=== PATIENT | female | born 1940 ===

== ENCOUNTER 2016-08-09 10:23 | Inpatient (IN) | payer MEDICARE, OTHER ==
[2016-08-09 11:05] LABS: ADD MANUAL DIFF? NO
[2016-08-09 11:13] LABS: BASO # 0.05 K/mm3 (0.0-2.0); BASO % 0.7 % (0.0-3.0); EOS # 0.1 (0.0-0.7); EOS % 0.7 % (1.5-5.0); GRAN # 4.51 (1.4-6.5); GRAN % 62.5 % (50.0-68.0); HEMATOCRIT 38.3 % (36.0-48.0); MEAN CELL VOLUME 89.7 fL (80.0-105.0); MEAN CORPUSCULAR HEMOGLOBIN 29.3 pg (25.0-35.0); MEAN CORPUSCULAR HGB CONC 32.6 g/dl (31.0-37.0); MEAN PLATELET VOLUME 10.1 fl (7.0-11.0); MONO # 0.7 (0.1-0.6); MONO % 9.1 % (1.0-6.0); PLATELET COUNT 208 10^3/uL (120.0-450.0); RED CELL DISTRIBUTION WIDTH 19.3 % (11.5-14.5); WHITE BLOOD COUNT 7.2 10^3/ul (4.5-11.0)
[2016-08-09 11:17] LABS: ALB/GLOB RATIO 1.2 (1.1-1.8); BILIRUBIN,TOTAL 1.1 mg/dL (0.2-1.3); CALCIUM 9.4 mg/dL (8.4-10.5); POTASSIUM 4.7 mmol/L (3.6-5.0); TOTAL PROTEIN 7.3 g/dL (5.8-8.3)
[2016-08-09 11:28] LABS: TROPONIN I 0.05 ng/mL
[2016-08-09 11:29] LABS: INR 1.12 (0.93-1.08); PARTIAL THROMBOPLASTIN TIME 27.6 Seconds (23.7-30.8)
--- NOTE | 2016-08-09 12:13 | ED PDOC ---
Arrival/HPI - General Chief Complaint: Shortness Of Breath Time Seen by Provider: 08/09/16 10:30 Historian: Patient - History of Present Illness Narrative History of Present Illness (Text): 08/09/16 12:08 Xenia Mancia is a 75 year old female, whose past medical history includes, A- fib, CAD with stents, hyperlipidemia, hypertension, Dementia, and diabetes, presents to the emergency department for evaluation of shortness of breath for past 2 weeks. Patient states she has not taken Digoxin for the past 2 weeks because she has not followed up with her PMD, . When EMS arrived, patient'sPULsewas in mid 170s which was brought down to 120s after 1 dose of Cardizem. Denies any fever, chills, chest pain, abdominal pain, nausea, vomiting , diarrhea, or any other complaints at this time. PMD:. 08/09/16 16:04 08/09/16 16:29 Time/Duration: < week (2 days ) Symptom Onset: Gradual Symptom Course: Unchanged Severity Level: Mild Activities at Onset: Light Context: Home Past Medical History - Provider Review Nursing Documentation Reviewed: Yes - Cardiac Hx Cardiac Disorders: Yes Hx Hypertension: Yes - Pulmonary Hx Chronic Obstructive Pulmonary Disease (COPD): Yes - Neurological Hx Neurological Disorder: Yes Hx Dementia: Yes - Endocrine/Metabolic Hx Endocrine Disorders: Yes Hx Diabetes Mellitus Type 2: Yes - Musculoskeletal/Rheumatological Hx Falls: No - Psychiatric Hx Substance Use: No - Surgical History Hx Cardiac Catheterization: Yes Hx Coronary Stent: Yes - Anesthesia Hx Anesthesia: Yes Hx Anesthesia Reactions: No Hx Malignant Hyperthermia: No Family/Social History - Physician Review Nursing Documentation Reviewed: Yes Family/Social History: No Known Family HX Smoking Status: Never Smoked Hx Alcohol Use: No Hx Substance Use: No Allergies/Home Meds Allergies/Adverse Reactions: Allergies No Known Allergies Allergy (Verified 06/23/16 14:06) Home Medications: Home Meds Medication Instructions Recorded Confirmed Atorvastatin Calcium 10 mg PO DIN 06/23/16 08/09/16 Donepezil HCl [Aricept Odt] 5 mg PO Q6 PRN 06/23/16 08/09/16 Glyburide/Metformin HCl 1 tab PO BID 06/23/16 08/09/16 [Glyburide-Metformin 5-500 mg] Lisinopril [Zestril] 20 mg PO DAILY 06/23/16 08/09/16 SITagliptin [Januvia] 100 mg PO DAILY 06/23/16 08/09/16 Meloxicam [Mobic] 15 mg PO DAILY 08/09/16 08/09/16 Review of Systems - Review of Systems Constitutional: Normal. absent: Fatigue, Fevers Respiratory: SOB. absent: Cough, Sputum Cardiovascular: Normal. absent: Chest Pain, Palpitations Gastrointestinal: Normal. absent: Abdominal Pain, Diarrhea, Nausea, Vomiting Genitourinary Female: Normal Psychiatric: Normal Physical Exam Vital Signs Reviewed: Yes Vital Signs Temp Pulse Resp BP Pulse Ox 08/09/16 16:07 135/66 08/09/16 15:45 115 H 16 115/75 96 08/09/16 14:01 108 H 17 110/72 94 L 08/09/16 11:55 127 H 24 108/53 L 98 08/09/16 11:45 101/62 08/09/16 11:40 120 H 18 101/62 94 L 08/09/16 11:24 109 H 18 99/71 L 97 08/09/16 11:12 20 98 08/09/16 11:09 127 H 23 87/56 L 98 08/09/16 11:07 137 H 20 108/53 L 96 08/09/16 11:06 149 H 26 H 118/49 L 96 08/09/16 11:04 171 H 18 102/67 94 L 08/09/16 11:02 174 H 123/78 08/09/16 10:35 182 H 26 H 126/85 99 08/09/16 10:33 96.8 F L 177 H 22 126/85 100 Temperature: Afebrile Blood Pressure: Normal Pulse: Tachycardic Respiratory Rate: Normal Appearance: Positive for: Well-Appearing, Non-Toxic, Comfortable Pain Distress: None Mental Status: Positive for: Alert and Oriented X 3 - Systems Exam Head: Present: Atraumatic, Normocephalic Pupils: Present: PERRL Conjunctiva: Present: Normal Respiratory/Chest: Present: Clear to Auscultation, Good Air Exchange. No: Respiratory Distress, Accessory Muscle Use Cardiovascular: Present: Normal S1, S2, Irregular Rhythm. No: Murmurs Abdomen: Present: Normal Bowel Sounds. No: Tenderness, Distention, Peritoneal Signs Upper Extremity: Present: Normal Inspection. No: Cyanosis, Edema Lower Extremity: Present: Normal Inspection. No: Edema Neurological: Present: GCS=15, CN II-XII Intact, Speech Normal Skin: Present: Warm, Dry, Normal Color. No: Rashes Psychiatric: Present: Alert, Oriented x 3, Normal Insight, Normal Concentration Medical Decision Making ED Course and Treatment: 08/09/16 12:14 Impression: A 75 year old female who presents to the emergency department for evaluation of shortness of breath for 2 days. Differential Diagnosis included but are not limited to: rapid A-fib RULE OUT [place] Plan: -- EKG -- Labs, cardiac enzymes -- CXR -- Chest X-ray -- Cardizem -- Reassess and disposition Progress Notes: Case was discussed with patient's granddaughter who is aware and verbalizes agreement with the plan to admit patient to telemetry for A-fib. EKG interpreted by me: A-fib @ 177 bpm. 08/09/16 13:32 heart rate of 113 bpm with a systolic pressure of 133. Will administer another dose of Cardizem and admit to telemetry. trop negative. cxr no infiltrate. pt states feeling better. probnp elevated, given lasix. Hayes hospitalist covering Dr sepulveda 08/09/16 13:39 Case discussed with hospitalist who accepts patient under his service for rapid A-fib. 08/09/16 16:30 08/09/16 16:35 - Lab Interpretations Lab Results: 08/09/16 11:00 08/09/16 11:00 Lab Results 08/09/16 11:00: WBC 7.2 D, RBC 4.27, Hgb 12.5, Hct 38.3, MCV 89.7, MCH 29.3, MCHC 32.6, RDW 19.3 H, Plt Count 208, MPV 10.1, Gran % 62.5, Lymph % (Auto) 27.0 , [place] % (Auto) 9.1 H, Eos % (Auto) 0.7 L, Baso % (Auto) 0.7, Gran # 4.51, Lymph # 2.0, [place] # 0.7 H, Eos # 0.1, Baso # 0.05, PT 12.1 H, INR 1.12 H, APTT 27.6, Sodium 140, Potassium 4.7, Chloride 103, Carbon Dioxide 22, Anion Gap 20, BUN 24 H, Creatinine 1.2, Est GFR ( Amer) 53, Est GFR (Non-Af Amer) 44, Random Glucose 147 H, Calcium 9.4, Total Bilirubin 1.1, AST 48 H, ALT 30, Alkaline Phosphatase 126, Lactate Dehydrogenase 637, Total Creatine Kinase 70, Troponin I 0.05 D, NT-Pro-B Natriuret Pep 3040 H, Total Protein 7.3, Albumin 3.9, Globulin 3.3, Albumin/Globulin Ratio 1.2 I have reviewed the lab results: Yes - RAD Interpretation Radiology Orders: 08/09/16 10:59 CHEST PORTABLE [RAD] Stat [employer] Supervisor: ED Physician - EKG Interpretation Interpreted by ED Physician: Yes Type: 12 lead EKG - Medication Orders Current Medication Orders: Aspirin (Ecotrin) 81 mg PO 0800 SEA Atorvastatin Calcium (Lipitor) 10 mg PO DIN SEA Digoxin (Lanoxin) 0.25 mg PO 1400 SEA Diltiazem HCl (Cardizem) 60 mg PO QID SEA Donepezil HCl (Aricept) 5 mg PO HS SEA Enoxaparin Sodium (Lovenox) 60 mg SC Q12H SEA PRN Reason: Protocol Furosemide (Lasix) 40 mg IVP DAILY SEA Glyburide (Micronase) 5 mg PO BID SEA diltiaZEM IVPB 100mg in NS (Cardizem 100mg In Ns) 100 mls @ 5 mls/hr IV .Q20H PRN; Protocol; 5 MG/HR PRN Reason: TITRATE PER MD ORDER Last Admin: 08/09/16 14:44 Dose: 5 MLS/HR Titration Intervention Document 08/09/16 14:44 [facility] (Rec: 08/09/16 14:46 [id number] Titration Intake Container Volume 100 Titration Dosing Titration Dose 5 IV Rate 5 Intake/Decrease Start eMAR Start Stop Document 08/09/16 14:44 [facility] (Rec: 08/09/16 14:46 [id number] Intravenous Solution Start Date 08/09/16 Start Time 14:46 Insulin Human Regular (Humulin R Med) 0 units SC ACHS SEA Pantoprazole Sodium (Protonix Ec Tab) 40 mg PO 0630 SEA Sitagliptin Phosphate (Januvia) 50 mg PO DAILY SEA Discontinued Medications Digoxin (Lanoxin) 0.25 mg IVP STAT STA Stop: 08/09/16 14:11 Last Admin: 08/09/16 14:17 Dose: 0.25 MG MAR Apical Pulse Rate Document 08/09/16 14:17 [facility] (Rec: 08/09/16 14:18 [place] [id number]) Apical Pulse Rate Apical Pulse Rate (60-90 beats/min) 137 IVP Administration Document 08/09/16 14:17 [facility] (Rec: 08/09/16 14:18 [place] [id number]) Charges for Administration # of IVP Administrations 1 Digoxin (Lanoxin) Confirm Administered Dose 0.5 mg .ROUTE .STK-MED ONE Stop: 08/09/16 14:17 Last Admin: 08/09/16 14:17 Dose: 0.5 MG Comments: duplicate [facility] Apical Pulse Rate Document 08/09/16 14:17 [facility] (Rec: 08/09/16 14:46 [place] [id number]) Apical Pulse Rate Apical Pulse Rate (60-90 beats/min) 137 Diltiazem HCl (Cardizem) Confirm Administered Dose 25 mg .ROUTE .STK-MED ONE Stop: 08/09/16 11:01 Last Admin: 08/09/16 11:02 Dose: 15 MG Comments: verbal order given by dr Wendy SHETTY Pulse and Blood Pressure Document 08/09/16 11:02 [facility] (Rec: 08/09/16 11:29 [place] [id number]) Pulse Pulse Rate (60-90) 174 Blood Pressure Blood Pressure (100/60-150/90) 123/78 Diltiazem HCl (Cardizem) 30 mg PO STAT STA Stop: 08/09/16 11:11 Last Admin: 08/09/16 11:45 Dose: 30 MG MAR Blood Pressure Document 08/09/16 11:45 [facility] (Rec: 08/09/16 11:46 [facility] [id number]) Blood Pressure Blood Pressure (100/60-150/90) 101/62 Enoxaparin Sodium (Lovenox) 60 mg SC STAT STA PRN Reason: Protocol Stop: 08/09/16 13:42 Last Admin: 08/09/16 14:18 Dose: 60 MG Subcutaneous Administrations Document 08/09/16 14:18 [facility] (Rec: 08/09/16 14:18 [place] [id number]) Injection Site MAR Injection Site Right Abdomen Charges for Administration # of Subcutaneous Administrations 1 Furosemide (Lasix) 40 mg IVP ONCE ONE Stop: 08/09/16 16:01 Last Admin: 08/09/16 16:07 Dose: 40 MG MAR Blood Pressure Document 08/09/16 16:07 [facility] (Rec: 08/09/16 16:07 [id number] Blood Pressure Blood Pressure (100/60-150/90) 135/66 IVP Administration Document 08/09/16 16:07 [facility] (Rec: 08/09/16 16:07 [id number]) Charges for Administration # of IVP Administrations 1 Non-Formulary Medication (Donepezil Hcl [Aricept Odt]) 5 mg PO Q6 PRN PRN Reason: Anxiety - Scribe Statement The provider has reviewed the documentation as recorded by the Polina Hernandez Provider Attestation: All medical record entries made by the Polina were at my direction and personally dictated by me. I have reviewed the chart and agree that the record accurately reflects my personal performance of the history, physical exam, medical decision making, and the department course for this patient. I have also personally directed, reviewed, and agree with the discharge instructions and disposition. Disposition/Present on Arrival - Present on Arrival Any Indicators Present on Arrival: No History of DVT/PE: No History of Uncontrolled Diabetes: Yes Urinary Catheter: No History of Decub. Ulcer: No History Surgical Site Infection Following: None - Disposition Have Diagnosis and Disposition been Completed?: Yes Diagnosis: Rapid atrial fibrillation, CHF (congestive heart failure) Disposition: HOSPITALIZED Disposition Time: 13:35 Patient Plan: Admission Condition: STABLE
--- NOTE | 2016-08-09 12:21 | RAD ---
HISTORY: sob COMPARISON: 06/23/2016 FINDINGS: LUNGS: No infiltrate. PLEURA: No significant pleural effusion identified, no pneumothorax apparent. CARDIOVASCULAR: Normal heart size. No congestive change. OSSEOUS STRUCTURES: No significant abnormalities. VISUALIZED UPPER ABDOMEN: Normal. OTHER FINDINGS: None. IMPRESSION: No active disease.
[2016-08-09] MEDS ORDERED: Enoxaparin 60 mg Syringe SC STA (13:41)
[2016-08-09] MEDS ORDERED: Digoxin 500 mcg/2ml (0.5 mg/2ml) Inj IVP STA (14:10)
[2016-08-09] MEDS ORDERED: DONEPEZIL HCL 5 MG PO PRN (14:12)
[2016-08-09] MEDS ORDERED: Digoxin 500 mcg/2ml (0.5 mg/2ml) Inj ONE (14:16)
[2016-08-09] MEDS ORDERED: diltiaZEM IVPB 100mg in NS 100 ML IV PRN ×2 (14:23→17:30)
--- NOTE | 2016-08-09 14:40 | CP.PCM.HP ---
Addendum entered and electronically signed by Shawnee Neumann DO 08/09/16 16:18: COPD mentions in below note entered in error. Original Note: <Shawnee Neumann - Last Filed: 08/09/16 15:10> History of Present Illness - History of Present Illness History of Present Illness: PGY-1 note HPI: 75 yo F w/ PMHx of HTN, DM, CAD with cardiac stents, A. fib, severe , COPD, dementia, presents to the ED with progressively worsening SOB. Pt walks with a cane. Denies chest pain, N/V, fever, abdominal pain, hematuria, pyuria, and changes in stool. PMD: Dr. Chaves Manager Safe: Dr. Richard Byers PMhx: see above Psxhx: denies Allergies: claims NKDA Social: denies ETOH, ever smoking, and illicit drugs. Lives alone. Medications: Lisinopril 20mg PO QD, Atorvastin 10 mg HS Present on Admission - Present on Admission Any Indicators Present on Admission: No Review of Systems - Review of Systems All systems: reviewed and no additional remarkable complaints except - Constitutional Constitutional: absent: Chills, Fever - Cardiovascular Cardiovascular: Dyspnea. absent: Chest Pain - Respiratory Respiratory: Dyspnea. absent: Cough - Gastrointestinal Gastrointestinal: absent: Abdominal Pain, Nausea Past Patient History - Past Social History Smoking Status: Never Smoked - CARDIAC Hx Cardiac Disorders: Yes Hx Hypertension: Yes - PULMONARY Hx Chronic Obstructive Pulmonary Disease (COPD): Yes - NEUROLOGICAL Hx Neurological Disorder: Yes Hx Dementia: Yes - ENDOCRINE/METABOLIC Hx Endocrine Disorders: Yes Hx Diabetes Mellitus Type 2: Yes - MUSCULOSKELETAL/RHEUMATOLOGICAL Hx Falls: No - PSYCHIATRIC Hx Substance Use: No - SURGICAL HISTORY Hx Cardiac Catheterization: Yes Hx Coronary Stent: Yes - ANESTHESIA Hx Anesthesia: Yes Hx Anesthesia Reactions: No Hx Malignant Hyperthermia: No Meds Allergies/Adverse Reactions: Allergies Allergy/AdvReac Type Severity Reaction Status Date / Time No Known Allergies Allergy Verified 08/09/16 17:17 Physical Exam - Constitutional Appears: Non-toxic, No Acute Distress - Head Exam Head Exam: ATRAUMATIC, NORMOCEPHALIC - Eye Exam Eye Exam: EOMI, Normal appearance - Respiratory Exam Respiratory Exam: Clear to Auscultation Bilateral, NORMAL BREATHING PATTERN - Cardiovascular Exam Cardiovascular Exam: Irregular Rhythm, +S1, +S2 - GI/Abdominal Exam GI & Abdominal Exam: Soft. absent: Tenderness - Exam External exam: absent: Ecchymosis, Erythema - Extremities Exam Extremities exam: Positive for: pedal edema, pedal pulses present - Back Exam Back exam: absent: CVA tenderness (L), CVA tenderness (R) - Neurological Exam Neurological exam: Alert, Oriented x3 - Skin Skin Exam: Intact, Normal Color Results - Vital Signs Recent Vital Signs: Last Vital Signs Temp 96.8 F L 08/09/16 10:33 Pulse 108 H 08/09/16 14:01 Resp 17 08/09/16 14:01 BP 110/72 08/09/16 14:01 Pulse Ox 94 L 08/09/16 14:01 - Labs Result Diagrams: 08/09/16 11:00 08/09/16 11:00 Assessment & Plan - Assessment and Plan (Free Text) Plan: 75 yo F w/ PMHx of HTN, DM, CAD with cardiac stents, A. fib, severe , COPD, dementia, w/ 2 week hx of worsening SOB. In ED, patient has sustained R. atrial fibrillation with HR in 170's that is treated with IV and PO cardizem. BNP is 3040. Pt is admitted to inpatient telemetry for R. a. fibrillation and CHF: R. A. fibrillation: EKG shows A. fibrillation at 177 bpm Cardizem 60 mg PO QID Cardizem drip ASA 81 Dr. Howe is requested for cardiology consult, help appreciated. CHF: Daily I's and O's ordered Recent ECHO on 06/24/2016 showed normal EF, mild to moderate LVH, moderately to severely calcified aortic valve, moderate pulmonary hypertension CAD: Lipitor 10 po HS DM: ISS Januvia 50 mg PO QD Glyburide 5mg PO BID Dementia: Aricept 5 mg PO HS ordered PPx measures: Lovenox 60mg SC given in ED today protonix <GustavoasaaveAjantha - Last Filed: 08/10/16 12:02> Results - Vital Signs Recent Vital Signs: Last Vital Signs Temp 97.8 F 08/10/16 06:00 Pulse 92 H 08/10/16 06:00 Resp 18 08/10/16 06:00 BP 142/80 08/10/16 09:31 Pulse Ox 94 L 08/10/16 06:00 - Labs Result Diagrams: 08/10/16 06:30 08/10/16 02:45 Labs: Laboratory Results - last 24 hr 08/09/16 08/09/16 08/09/16 16:36 19:11 21:35 WBC RBC Hgb Hct MCV MCH MCHC RDW Plt Count MPV Gran % Lymph % (Auto) [place] % (Auto) Eos % (Auto) Baso % (Auto) Gran # Lymph # [place] # Eos # Baso # Sodium Potassium Chloride Carbon Dioxide Anion Gap BUN Creatinine Est GFR ( Amer) Est GFR (Non-Af Amer) POC Glucose (mg/dL) 84 94 Random Glucose Calcium Total Bilirubin AST ALT Alkaline Phosphatase Lactate Dehydrogenase 810 H Total Creatine Kinase 70 Troponin I 0.08 D Total Protein Albumin Globulin Albumin/Globulin Ratio 08/10/16 08/10/16 08/10/16 02:45 06:30 07:33 WBC 7.0 RBC 4.50 Hgb 13.2 Hct 40.4 MCV 89.8 MCH 29.3 MCHC 32.7 RDW 19.1 H Plt Count 206 MPV 9.9 Gran % 66.1 Lymph % (Auto) 22.8 [place] % (Auto) 10.1 H Eos % (Auto) 0.6 L Baso % (Auto) 0.4 Gran # 4.63 Lymph # 1.6 [place] # 0.7 H Eos # 0.0 Baso # 0.03 Sodium 138 Potassium 4.2 Chloride 105 Carbon Dioxide 22 Anion Gap 15 BUN 23 H Creatinine 1.1 Est GFR ( Amer) 58 Est GFR (Non-Af Amer) 48 POC Glucose (mg/dL) 68 Random Glucose 67 L Calcium 9.1 Total Bilirubin 1.0 AST 43 H ALT 24 Alkaline Phosphatase 110 Lactate Dehydrogenase 581 Total Creatine Kinase 49 Troponin I 0.08 0.07 Total Protein 6.6 Albumin 3.4 Globulin 3.2 Albumin/Globulin Ratio 1.1 Assessment & Plan - Assessment and Plan (Free Text) Plan: attending note; Patient seen and examined with resident in ER. This is a 75-year-old Emirati-speaking female admitted with rapid A. fib. Currently denies any chest pain. Complaining of mild lower extremity swelling. Started on IV cardizem drip after the Cardizem and the dose of IV digoxin. started on subcutaneous Lovenox. Patient is noncompliance with medication. patient with aortic stenosis. follows up with cardiology Dr.Rashawn byers. Cardiology evaluation with Dr. Howe requested. Will follow patient closely in telemetry. Upon discharge patient will follow up with PMD Dr. chaves.
--- NOTE | 2016-08-09 14:42 | CARD ---
APPROVED REPORT EKG Measurement Heart [id number] <Conclusion> Atrial fibrillation with rapid ventricular response Anterior infarct, age undetermined ST & T wave abnormality, consider lateral ischemia or digitalis effect Abnormal ECG
[2016-08-09 14:47] VITALS: BMI 25.3
[2016-08-09] MEDS ORDERED: Albuterol-Ipratrop 3 mg / 0.5 (3 ml) UD IH PRN (16:03)
[2016-08-09] MEDS: Insulin Reg-MEDIUM-Coverage SC SCH ×2 (17:15→22:40)
[2016-08-09] MEDS ORDERED: Non Formulary Medication (Glyburide/Metformin Hcl [Glyburide-Metformin 5-500 Mg] 1 TAB) PO SCH (18:00)
[2016-08-09] MEDS ORDERED: Digoxin 500 mcg/2ml (0.5 mg/2ml) Inj IVP ONE (19:00)
--- NOTE | 2016-08-09 19:13 | CON ---
DATE: 08/09/2016 SERVICE: Cardiology. REASON FOR CONSULTATION: Aortic stenosis, coronary artery disease, status post PTCA, admitted with shortness of breath, AFib with rapid ventricular rate ( chronic atrial fibrillation). BRIEF CLINICAL HISTORY: This is a 75-year-old Urdu speaking female with a past medical history significant for coronary artery disease, status post PTCA of LAD, 3 years ago. Repeat catheterization 04/18/2015 shows proximal stent patent in LAD. Medical treatment recommended. RCA nondominant 90% stenosis, preserved left ventricular function, history of chronic atrial fibrillation. Discharged recently from [facility] on Eliquis. Prior, patient was discharged to [place], not on anticoagulation because of the gastrointestinal bleed, but patient was on Brilinta post PTCA. At one point, patient's hemoglobin was 6 and she was not on anticoagulation there, but last time the patient was here and was discharged on Eliquis, who recently discharged from when the patient was admitted with sepsis. PAST MEDICAL HISTORY: Significant for chronic atrial fibrillation, hypertension , dementia, diabetes, history of cardiac catheterization, and coronary artery disease. As mentioned, patient had a stent placement done by Dr. Kwan Byers 3-4 years ago, repeat cardiac catheterization on 04/18/2015, shows a patent stent in the proximal RCA, nondominant, 90% stenosis, history of GI bleed , history of chronic atrial fibrillation. The patient had echocardiography done that shows LV size normal, LV function normal, left renal function is within normal limits, calculated ejection fraction 74%, severe aortic stenosis, valve area 0.6-0.7 cm2, severe valvular aortic stenosisand calcified aortic valve, aortic regurgitation, moderate mitral regurgitation, moderate pulmonary hypertension, moderate tricuspid regurgitation, right ventricular systolic pressure 55. Echo dated 06/24/2016. Previous cardiac workup as follows: Cardiac catheterization on 04/18/2015, repeat that shows patent stent in the proximal LAD, mid LAD has 40% stenosis, circumflex essentially free of significant disease, RCA nondominant 90% stenosis , preserved left ventricular function. As mentioned, last echo dated 06/24/2016 showed concentric LVH, severe valvular aortic stenosis, moderate valvular regurgitation, moderate mitral regurgitation, moderate pulmonary hypertension, right ventricular systolic pressure of 55, calculated valve area 0.7 cm2. CURRENT MEDICATIONS: The patient at home was taking Januvia, Mobic, lisinopril , glyburide, Aricept, atorvastatin. She says that she stopped taking digoxin because the patient was not getting from Dr. Marcelo Burris. REVIEW OF SYSTEMS: As per HPI. ALLERGIES: No known drug allergies. PHYSICAL EXAMINATION: VITAL SIGNS: Temperature afebrile, heart rate 108, blood pressure 110/72. HEENT: PERRLA. Extraocular muscles intact. NECK: Supple. No carotid bruits. No thyromegaly. CHEST: Clear to auscultation. HEART: S1, S2 regular. ABDOMEN: Soft. EXTREMITIES: Clubbing and cyanosis negative. LABORATORY DATA: Blood workup as follows: WBC5.4, hemoglobin 13.1, hematocrit 38.3, platelet count 208. Chemistry shows sodium 140, potassium ____, chloride 103, carbon dioxide 22, anion gap of 20, BUN 24, creatinine 1.2. EKG shows atrial fibrillation with rapid ventricular rate. On admission, the patient's heart rate was 170. IMPRESSION: Chronic atrial fibrillation, atrial fibrillation with rapid ventricular rate, shortness of breath, severe aortic stenosis, preserved left ventricular function, history of coronary artery disease, status post a stent in 2012, status post repeat catheterization 04/18/[address] Kwan Byers, mild left anterior descending disease, circumflex shows luminal irregularity, nondominant right coronary artery 90% stenosis, preserved left ventricular function, elevated BNP. RECOMMENDATION: We will start Eliquis, give the digoxin. Continue IV Cardizem and also start p.o. verapamil, control the rate. Once patient is stable, possibly discharge and follow with Dr. Kwan Byers. Possible evaluation for TAVR. Discussed with Dr. Kwan Byers last time and we will update Dr. Kwan Byers again upon discharge. Thank you, Dr. Lutz, for providing the opportunity in taking care of this patient. Will follow with you. Soraya Howe MD cc: Soraya Lutz M.D. 305 TT: 08/09/2016 19:12:24 Confirmation # [id number] Dictation # [id number] dale [place]
[2016-08-09] MEDS ORDERED: Pneumococcal 23-Valent Vaccine IM ONE (19:38)
[2016-08-09] MEDS ORDERED: Influenza Vaccine 45 MCG/0.5 ml IM ONE (19:38)
[2016-08-09 19:42] LABS: TROPONIN I 0.08 ng/mL
[2016-08-10 03:16] LABS: ALB/GLOB RATIO 1.1 (1.1-1.8); CALCIUM 9.1 mg/dL (8.4-10.5); POTASSIUM 4.2 mmol/L (3.6-5.0); TOTAL PROTEIN 6.6 g/dL (5.8-8.3)
[2016-08-10 03:27] LABS: TROPONIN I 0.08 ng/mL
--- NOTE | 2016-08-10 03:57 | US ---
HISTORY: Leg pain and swelling. Evaluate for DVT PHYSICIAN(S): Ovi Buck MD. TECHNIQUE: Duplex sonography and color-flow Doppler with graded compression were used to evaluate the deep venous systems of both lower extremities. FINDINGS: The visualized deep venous systems of both lower extremities are sonographically normal and compressible. Normal wave forms and augmentation are seen. There is no sonographic evidence for deep venous thrombosis in the visualized segments of both lower extremities. IMPRESSION: No sonographic evidence for deep venous thrombosis in the visualized segments of both lower extremities.
[2016-08-10] MEDS: Pantoprazole 40 mg EC Tab PO SCH (06:26)
[2016-08-10] MEDS ORDERED: Enoxaparin 60 mg Syringe SC SCH (07:00)
[2016-08-10 07:46] LABS: ADD MANUAL DIFF? NO
[2016-08-10 07:51] LABS: BASO # 0.03 K/mm3 (0.0-2.0); BASO % 0.4 % (0.0-3.0); EOS % 0.6 % (1.5-5.0); GRAN # 4.63 (1.4-6.5); GRAN % 66.1 % (50.0-68.0); HEMATOCRIT 40.4 % (36.0-48.0); LYMPH # 1.6 (1.2-3.4); LYMPH % 22.8 % (22.0-35.0); MEAN CELL VOLUME 89.8 fL (80.0-105.0); MEAN CORPUSCULAR HEMOGLOBIN 29.3 pg (25.0-35.0); MEAN CORPUSCULAR HGB CONC 32.7 g/dl (31.0-37.0); MEAN PLATELET VOLUME 9.9 fl (7.0-11.0); MONO # 0.7 (0.1-0.6); MONO % 10.1 % (1.0-6.0); PLATELET COUNT 206 10^3/uL (120.0-450.0); RED CELL DISTRIBUTION WIDTH 19.1 % (11.5-14.5)
[2016-08-10] MEDS: Insulin Reg-MEDIUM-Coverage SC SCH ×4 (09:37→22:06)
--- NOTE | 2016-08-10 11:16 | CP.PCM.PN ---
Addendum entered and electronically signed by Shawnee Neumann DO 08/10/16 14:16: Daughter spoken to on phone today is Carlita Jeffrey. Called pt's pharmacy at [facility] @ and medications the pt has been taking are: Aricept 5mg PO QD, Metformin 500 mg PO TID, Januvia 100mg PO QD, Lisinopril 20 mg PO QD, Lipitor 10 mg PO QD, Mobic 15 mg PO QD. Original Note: <Shawnee Neumann - Last Filed: 08/10/16 13:35> Subjective - Date & Time of Evaluation Date of Evaluation: 08/10/16 Time of Evaluation: 07:40 - Subjective Subjective: PGY-1 note Pt seen and evaluated at the bedside. Pt denies SOB, N/V, chest pain and abdominal pain, and urinary symptoms. Claims BM overnight. As per phone call with Pt's daughter at , pt is making her own doctor's appointments , and pt is in charge of what medications she takes. Objective - Vital Signs/Intake and Output Vital Signs (last 24 hours): Temp Pulse Resp BP Pulse Ox 97.8 F 92 H 18 142/80 94 L 08/10/16 06:00 08/10/16 06:00 08/10/16 06:00 08/10/16 09:31 08/10/16 06:00 Intake and Output: 08/10/16 08/10/16 06:59 18:59 Intake Total 440 Output Total 3700 Balance -3260 - Medications Medications: Current Medications Apixaban (Eliquis) 2.5 mg PO BID [facility] PRN Reason: Protocol Last Admin: 08/10/16 09:30 Dose: 2.5 mg Aspirin (Ecotrin) 81 mg PO 0800 SEA Last Admin: 08/10/16 09:30 Dose: 81 mg Atorvastatin Calcium (Lipitor) 10 mg PO DIN [facility] Last Admin: 08/09/16 17:19 Dose: 10 mg Digoxin (Lanoxin) 0.125 mg PO 1400 SEA Donepezil HCl (Aricept) 5 mg PO HS [facility] Last Admin: 08/09/16 22:40 Dose: 5 mg Furosemide (Lasix) 40 mg IVP DAILY [facility] Last Admin: 08/10/16 09:31 Dose: 40 mg Glyburide (Micronase) 5 mg PO BID [facility] Last Admin: 08/10/16 09:30 Dose: 5 mg Insulin Human Regular (Humulin R Med) 0 units SC ACHS [facility] Last Admin: 08/10/16 09:37 Dose: Not Given Pantoprazole Sodium (Protonix Ec Tab) 40 mg PO 0630 [facility] Last Admin: 08/10/16 06:26 Dose: 40 mg Sitagliptin Phosphate (Januvia) 50 mg PO DAILY [facility] Verapamil HCl (Calan Tab) 40 mg PO TID [facility] Last Admin: 08/10/16 09:36 Dose: 40 mg - Labs Labs: 08/10/16 06:30 08/10/16 02:45 PT 12.1 Seconds (9.9-11.8) H 08/09/16 11:00 INR 1.12 (0.93-1.08) H 08/09/16 11:00 APTT 27.6 Seconds (23.7-30.8) 08/09/16 11:00 - Constitutional Appears: Non-toxic, No Acute Distress - Head Exam Head Exam: ATRAUMATIC, NORMOCEPHALIC - Eye Exam Eye Exam: EOMI, Normal appearance - Respiratory Exam Respiratory Exam: Clear to Ausculation Bilateral, NORMAL BREATHING PATTERN - Cardiovascular Exam Cardiovascular Exam: Irregular Rhythm, +S1, +S2 - GI/Abdominal Exam GI & Abdominal Exam: Soft. absent: Tenderness - Exam External exam: absent: Ecchymosis, Erythema - Extremities Exam Extremities Exam: Normal Capillary Refill. absent: Tenderness - Back Exam Back Exam: absent: CVA tenderness (L), CVA tenderness (R) - Neurological Exam Neurological Exam: Alert, Awake - Skin Skin Exam: Dry, Intact Assessment and Plan - Assessment and Plan (Free Text) Plan: 75 yo F w/ PMHx of HTN, DM, CAD with cardiac stents, A. fib, severe , dementia , w/ 2 week hx of worsening SOB. In ED, patient has sustained R. atrial fibrillation with HR in 170's that is treated with IV and PO cardizem. BNP is 3040. Pt is admitted to inpatient telemetry for R. a. fibrillation and CHF: R. A. fibrillation: Pt's freelance director is Dr. Blaine Howe is requested for cardiology consult, help appreciated. CHADs2 score 3, HAS-BLED score 3 Initial EKG shows A. fibrillation at 177 bpm Cardizem drip discontinued and now started on verapamil 40 mg PO TID ASA 81, Elliquis 2.5 PO BID CHF: Daily I's and O's ordered, today's balance at negative 3260 Recent ECHO on 06/24/2016 showed normal EF, mild to moderate LVH, moderately to severely calcified aortic valve, moderate pulmonary hypertension Lasix 40 IVP QD CAD: Lipitor 10 po HS DM: ISS Januvia 50 mg PO QD Glyburide 5mg PO BID Dementia: Aricept 5 mg PO HS ordered PPx measures: started Elliquis PO today. 2.5mg PO BID protonix <Vale Tanner - Last Filed: 08/10/16 16:05> Objective - Vital Signs/Intake and Output Vital Signs (last 24 hours): Temp Pulse Resp BP Pulse Ox 97.9 F 73 20 109/47 L 94 L 08/10/16 12:00 08/10/16 12:00 08/10/16 12:00 08/10/16 12:00 08/10/16 06:00 Intake and Output: 08/10/16 08/10/16 06:59 18:59 Intake Total 440 Output Total 3700 Balance -3260 - Medications Medications: Current Medications Apixaban (Eliquis) 2.5 mg PO BID [facility] PRN Reason: Protocol Last Admin: 08/10/16 09:30 Dose: 2.5 mg Aspirin (Ecotrin) 81 mg PO 0800 [facility] Last Admin: 08/10/16 09:30 Dose: 81 mg Atorvastatin Calcium (Lipitor) 10 mg PO DIN [facility] Last Admin: 08/09/16 17:19 Dose: 10 mg Digoxin (Lanoxin) 0.125 mg PO 1400 SEA Donepezil HCl (Aricept) 5 mg PO HS [facility] Last Admin: 08/09/16 22:40 Dose: 5 mg Furosemide (Lasix) 40 mg IVP DAILY [facility] Last Admin: 08/10/16 09:31 Dose: 40 mg Glyburide (Micronase) 5 mg PO BID [facility] Last Admin: 08/10/16 09:30 Dose: 5 mg Insulin Human Regular (Humulin R Med) 0 units SC ACHS [facility] Last Admin: 08/10/16 09:37 Dose: Not Given Pantoprazole Sodium (Protonix Ec Tab) 40 mg PO 0630 [facility] Last Admin: 08/10/16 06:26 Dose: 40 mg Sitagliptin Phosphate (Januvia) 50 mg PO DAILY [facility] Verapamil HCl (Calan Tab) 40 mg PO TID [facility] Last Admin: 08/10/16 09:36 Dose: 40 mg - Labs Labs: 08/10/16 06:30 08/10/16 02:45 PT 12.1 Seconds (9.9-11.8) H 08/09/16 11:00 INR 1.12 (0.93-1.08) H 08/09/16 11:00 APTT 27.6 Seconds (23.7-30.8) 08/09/16 11:00 Assessment and Plan - Assessment and Plan (Free Text) Assessment: attending note; Patient seen and examined with resident in ER. This is a 75-year-old Icelandic-speaking female admitted with rapid A. fib. ttreated with IV Cardizem. Currently on by mouth verapamil and digoxin. Rate controlled. Currently denies any chest pain. Complaining of mild lower extremity swelling. cardiac enzymes 3 negative. continue Eliquis. cardiology evaluation appreciated. Patient is noncompliance with medication. patient with aortic stenosis. follows up with cardiology Dr.Rashawn byers. case discussed with Dr. Byers in detail. physical therapy evaluation appreciated. Recommending subacute rehabilitation. Case discussed with showcase maker in detail for INDIGO placement. Upon discharge patient will follow up with PMD Dr. sepulveda. Attending/Attestation - Attestation I have personally seen and examined this patient.: Yes I have fully participated in the care of the patient.: Yes I have reviewed all pertinent clinical information, including history, physical exam and plan: Yes
--- NOTE | 2016-08-10 12:03 | PN ---
DATE: 08/10/2016 REASON FOR CONSULTATION AND FOLLOWUP: Aortic stenosis, coronary artery disease, status post PTCA, ad mitted with shortness of breath, AFib with rapid ventricular rate, chronic atrial fibrillation. BRIEF CLINICAL HISTORY: This is a 75-year-old German speaking female with a past medical history si gnificant for coronary artery disease status post PTCA of LAD 3 years ago. Repeat catheterization /____ shows the proximal stent patent in LAD. Medical treatment recommended. The patient is alcira conley followed by Dr. Ashly Byers. Last catheterization done by him shows a nondominant RCA 90% occ lusion noted. Medical treatment recommended. She was recently admitted to [facility] and discharged on Eliquis. The patient was not on prior anticoagulation because of gastrointestinal bleed. The patie nt was recently discharged on 06/29/2016 when patient was admitted with sepsis. Lying flat. Denies any chest pain, shortness of breath, any palpitation. PHYSICAL EXAMINATION: VITAL SIGNS: Temperature afebrile, heart rate 92, blood pressure 142/80. HEENT: PERRLA. Extraocular muscles intact. NECK: Supple. No carotid bruits. No thyromegaly. CHEST: Clear to auscultation. HEART: S1, S2 regular. ABDOMEN: Soft. EXTREMITIES: Clubbing and cyanosis negative. BLOOD WORKUP: WBC 7, hemoglobin 13.2, hematocrit 40.4, platelet count 206. Chemistry shows sodium 1 38, potassium 4.2, chloride 105, carbon dioxide 22, anion gap of 15, BUN 23, creatinine 1.1. Troponi n 0.07. IMPRESSION: Indeterminate range of troponin; right coronary artery 90% stenosis, nondominant; patent stent in left anterior descending, critical aortic stenosis, atrial fibrillation with rapid ventricu lar rate, now rate is well controlled. The patient had echocardiography that shows a normal left adeline tricular function, ejection fraction 74%, severe aortic stenosis with valve area 0.6 cm to 0.7 cm2, m oderate pulmonary hypertension, moderate tricuspid regurgitation, right ventricular systolic pressure 55 dated 06/24/2016. Last catheterization 04/18/____ by Dr. Ashly Byers as mentioned, left ant erior descending proximal patent stent, mid left anterior descending 40% stenosis, circumflex essenti ally free of significant disease and dominant circumflex, right coronary artery is nondominant 90% st enosis, severe valvular aortic stenosis. So far, no evidence of acute myocardial infarction. Border line indeterminate range of troponin. Atrial fibrillation, chronic, rate well controlled. RECOMMENDATION: Continue verapamil 30 mg 3 times a day. Continue aspirin. Continue Eliquis. Narendra se of patient's creatinine clearance of 40 mL, will change the digoxin to 0.125 daily. Continue gent le diuretics. Discharge planning. We will discontinue enoxaparin as patient is on Eliquis. Will fo llow with you. Thank you, Dr. Tanner, for providing the opportunity in taking care of this patient. The patient is stable; okay to be discharged. No complaint of chest pain, no shortness of breath, no palpitation. Discussed with the patient litzy banks the lang interpreter. Soraya Howe MD cc: [id number] TT: 08/10/2016 11:27:35 Confirmation # [id number] Dictation # [id number] mn 08/10/2016 11:02:39
[2016-08-10] MEDS ORDERED: Digoxin 250 mcg (0.25 mg) Tab PO SCH (14:00)
--- NOTE | 2016-08-10 14:16 | CARD ---
APPROVED REPORT EKG Measurement Heart [id number] <Conclusion> Atrial fibrillation Low voltage QRS ST & T wave abnormality, consider anterolateral ischemia or digitalis effect Abnormal ECG
[2016-08-10] MEDS: Digoxin 125 mcg (0.125 mg) Tab PO SCH (14:18)
--- NOTE | 2016-08-10 14:38 | CARD ---
APPROVED REPORT EKG Measurement Heart [id number] <Conclusion> Atrial fibrillation Low voltage QRS Cannot rule out Anterior infarct, age undetermined ST & T wave abnormality, consider inferolateral ischemia or digitalis effect Abnormal ECG
--- NOTE | 2016-08-10 14:51 | CARD ---
APPROVED REPORT EKG Measurement Heart [id number] <Conclusion> Atrial fibrillation with rapid ventricular response Low voltage QRS Cannot rule out Anterior infarct, age undetermined ST & T wave abnormality, consider lateral ischemia or digitalis effect Abnormal ECG
--- NOTE | 2016-08-10 14:55 | CP.PCM.DIS ---
Provider - Provider Date of Admission: 08/09/16 13:54 Attending physician: Vale Tanner MD Primary care physician: NO PRIMARY CARE PROVIDER Consults: Dr. Howe, cardiology Time Spent in preparation of Discharge (in minutes): 41 Hospital Course - Lab Results Lab Results: Most Recent Lab Values WBC 7.0 10^3/ul (4.5-11.0) 08/10/16 06:30 RBC 4.50 10^6/uL (3.5-6.1) 08/10/16 06:30 Hgb 13.2 gm/dL (12.0-16.0) 08/10/16 06:30 Hct 40.4 % (36.0-48.0) 08/10/16 06:30 MCV 89.8 fL (80.0-105.0) 08/10/16 06:30 MCH 29.3 pg (25.0-35.0) 08/10/16 06:30 MCHC 32.7 g/dl (31.0-37.0) 08/10/16 06:30 RDW 19.1 % (11.5-14.5) H 08/10/16 06:30 Plt Count 206 10^3/uL (120.0-450.0) 08/10/16 06:30 MPV 9.9 fl (7.0-11.0) 08/10/16 06:30 Gran % 66.1 % (50.0-68.0) 08/10/16 06:30 Lymph % (Auto) 22.8 % (22.0-35.0) 08/10/16 06:30 [place] % (Auto) 10.1 % (1.0-6.0) H 08/10/16 06:30 Eos % (Auto) 0.6 % (1.5-5.0) L 08/10/16 06:30 Baso % (Auto) 0.4 % (0.0-3.0) 08/10/16 06:30 Gran # 4.63 (1.4-6.5) 08/10/16 06:30 Lymph # 1.6 (1.2-3.4) 08/10/16 06:30 [place] # 0.7 (0.1-0.6) H 08/10/16 06:30 Eos # 0.0 (0.0-0.7) 08/10/16 06:30 Baso # 0.03 K/mm3 (0.0-2.0) 08/10/16 06:30 PT 12.1 Seconds (9.9-11.8) H 08/09/16 11:00 INR 1.12 (0.93-1.08) H 08/09/16 11:00 APTT 27.6 Seconds (23.7-30.8) 08/09/16 11:00 Sodium 138 mmol/L (132-148) 08/10/16 02:45 Potassium 4.2 mmol/L (3.6-5.0) 08/10/16 02:45 Chloride 105 mmol/L (98-107) 08/10/16 02:45 Carbon Dioxide 22 mmol/L (21-33) 08/10/16 02:45 Anion Gap 15 (10-20) 08/10/16 02:45 BUN 23 mg/dL (7-21) H 08/10/16 02:45 Creatinine 1.1 mg/dL (0.5-1.4) 08/10/16 02:45 Est GFR ( Amer) 58 08/10/16 02:45 Est GFR (Non-Af Amer) 48 08/10/16 02:45 POC Glucose (mg/dL) 68 mg/dL (65-110) 08/10/16 07:33 Random Glucose 67 mg/dL (70-110) L 08/10/16 02:45 Calcium 9.1 mg/dL (8.4-10.5) 08/10/16 02:45 Total Bilirubin 1.0 mg/dL (0.2-1.3) 08/10/16 02:45 AST 43 U/L (15-39) H 08/10/16 02:45 ALT 24 U/L (7-56) 08/10/16 02:45 Alkaline Phosphatase 110 U/L (38-133) 08/10/16 02:45 Lactate Dehydrogenase 581 U/L (333-699) 08/10/16 02:45 Total Creatine Kinase 49 U/L (35-230) 08/10/16 02:45 Troponin I 0.07 ng/mL 08/10/16 06:30 NT-Pro-B Natriuret Pep 3040 pg/mL (0-450) H 08/09/16 11:00 Total Protein 6.6 g/dL (5.8-8.3) 08/10/16 02:45 Albumin 3.4 g/dL (3.0-4.8) 08/10/16 02:45 Globulin 3.2 gm/dL 08/10/16 02:45 Albumin/Globulin Ratio 1.1 (1.1-1.8) 08/10/16 02:45 - Hospital Course Hospital Course: 75 yo F w/ PMHx of HTN, DM, CAD with cardiac stents, A. fib, severe , dementia , presents to the ED with progressively worsening SOB for 2 weeks. Pt walks with a cane. HR 177 initially on EKG showing a.fibrillation. Pt treated with IV and PO cardizem in ED. Inpatient admission to Telemetry for rapid atrial fibrillation and CHF. BNP is 3040. 39: B/L venous doppler negative for DVT, indeterminate troponins, treated with elliquis and verapamil. Discharged home in fair condition with new medications of Discharge Exam - Additional Findings Additional findings: - Constitutional Appears: Non-toxic, No Acute Distress - Head Exam Head Exam: ATRAUMATIC, NORMOCEPHALIC - Eye Exam Eye Exam: EOMI, Normal appearance - Respiratory Exam Respiratory Exam: Clear to Ausculation Bilateral, NORMAL BREATHING PATTERN - Cardiovascular Exam Cardiovascular Exam: Irregular Rhythm, +S1, +S2 - GI/Abdominal Exam GI & Abdominal Exam: Soft. absent: Tenderness - Exam External exam: absent: Ecchymosis, Erythema - Extremities Exam Extremities Exam: Normal Capillary Refill. absent: Tenderness - Back Exam Back Exam: absent: CVA tenderness (L), CVA tenderness (R) - Neurological Exam Neurological Exam: Alert, Awake - Skin Skin Exam: Dry, Intact Discharge Plan - Follow Up Plan Condition: STABLE Disposition: HOME/ ROUTINE Instructions: Heart Failure (DC), Heart Failure (GEN), Pacemaker (DC), Pacemaker (GEN), Pulmonary Edema (DC), Pulmonary Edema (GEN), Ascites (DC), Ascites (GEN) Additional Instructions: You are discharged. Please follow up with your primary medical doctor or if your physician is unavailable, the [facility] [place], within 2 weeks. Please follow-up with your captain/check airman Dr. Richard Byers for evaluation for TAVR procedure. Please take the following prescriptions: Eliquis 2.5 mg PO BID (one tab by mouth twice daily), verapamil 40 mg PO qd ( one tab by mouth three times a day). Please return to hospital for worsening of symptoms. Referrals: [facility] Resaadia, [Non-Staff] - Ashly Byers MD [Staff Provider] -
[2016-08-11] MEDS: Pantoprazole 40 mg EC Tab PO SCH (05:33)
[2016-08-11 06:08] VITALS: O2SAT 96
[2016-08-11 06:58] LABS: ADD MANUAL DIFF? NO
[2016-08-11 07:08] LABS: BASO # 0.03 K/mm3 (0.0-2.0); BASO % 0.4 % (0.0-3.0); EOS % 0.6 % (1.5-5.0); GRAN # 4.26 (1.4-6.5); GRAN % 60.2 % (50.0-68.0); HEMATOCRIT 38.9 % (36.0-48.0); LYMPH % 28.8 % (22.0-35.0); MEAN CELL VOLUME 89.4 fL (80.0-105.0); MEAN CORPUSCULAR HEMOGLOBIN 29.2 pg (25.0-35.0); MEAN CORPUSCULAR HGB CONC 32.6 g/dl (31.0-37.0); MEAN PLATELET VOLUME 9.8 fl (7.0-11.0); MONO # 0.7 (0.1-0.6); PLATELET COUNT 221 10^3/uL (120.0-450.0); RED CELL DISTRIBUTION WIDTH 18.7 % (11.5-14.5); WHITE BLOOD COUNT 7.1 10^3/ul (4.5-11.0)
[2016-08-11 07:19] LABS: CALCIUM 8.7 mg/dL (8.4-10.5); POTASSIUM 4.4 mmol/L (3.6-5.0); TOTAL PROTEIN 6.5 g/dL (5.8-8.3)
[2016-08-11] MEDS: Insulin Reg-MEDIUM-Coverage SC SCH (09:48)
--- NOTE | 2016-08-11 10:21 | PN ---
DATE: 08/11/2016 REASON FOR CONSULTATION AND FOLLOWUP: Aortic stenosis, coronary artery disease status post PTCA, adm itted with shortness of breath, AFib with rapid ventricular rate, history of chronic atrial fibrillat ion. BRIEF CLINICAL HISTORY: This is a 75-year-old French speaking female with a past medical history si gnificant for coronary artery disease status post PTCA of LAD 3 years ago. Repeat catheterization shows proximal LAD stent noted 40% stenosis, RCA is nondominant and 90% stenosis. Cathete rization done by Dr. Kwan Byers. The patient is being followed by him. Discuss with him. The patient had AFib, but last time the Eliquis was not started at [place] because of the GI bleed. Hemoglobin at one point dropped to 6. Since last admission, the patient was here. Eliquis is start ed, patient is tolerating it well. H and H remains stable. The patient was recently discharged from the [facility] on 06/29/2016 when admitted with sepsis. Readmitted again with shortness of breath and palpitation. PHYSICAL EXAMINATION: VITAL SIGNS: Temperature afebrile, heart rate 103, blood pressure 106/67. HEENT: PERRLA. Extraocular muscles intact. NECK: Supple. No carotid bruit or thyromegaly. CHEST: Clear to auscultation. HEART: S1, S2 regular. ABDOMEN: Soft. EXTREMITIES: Clubbing and cyanosis negative. LABORATORY DATA: WBC 7.1, hemoglobin 12.7, hematocrit 38.9, platelet count 221. Chemistry shows sod ium 140, potassium 4.4, chloride 103, carbon dioxide 26, anion gap of 15, BUN 21, creatinine 1.2. IMPRESSION: Atrial fibrillation with rapid ventricular rate, now is improving; critical aortic steno sis with valve area of 0.7 cm2; coronary artery disease, status post stent 3 years ago. Repeat syd terization ___ that shows 90% nondominant right coronary artery occluded; patent stent in le ft anterior descending, 40% stenosis in left anterior descending; circumflex has nonsignificant steno sis noted, which is a dominant vessel. Recent echocardiogram shows ejection fraction 74%, severe aor tic stenosis with valve area 0.7 cm2, moderate pulmonary hypertension, moderate tricuspid regurgitati on, right ventricular systolic pressure of 55 dated 06/24/2016. RECOMMENDATION: Continue anticoagulation with Eliquis, monitor H and H which is fairly stable. No s ignificant drop in hemoglobin and hematocrit noted. Control the rate with verapamil. Once the patie nt is stable and they have a long-term facility for rehab, patient will be discharged. Follow up wit Dr. Ashly Byers. Discussed with Dr. Kwan Byers. Upon discharge, the patient will be fo llowed up with Dr. Kwan Byers. Thank you, Dr. Tanner, for providing the opportunity in taking care of this patient. Once the hea rt rate is stable, patient will be discharged to rehab facility. Soraya Howe MD cc:Vale Tanner MD [id number] TT: 08/11/2016 10:04:00 Confirmation # [id number] Dictation # [id number] 08/11/2016 09:21:20
[2016-08-11] MEDS: Digoxin 125 mcg (0.125 mg) Tab PO SCH (13:14)
[2016-08-11 13:16] VITALS: PULSE 87
--- NOTE | 2016-08-11 16:42 | CP.PCM.PN ---
<[place]awnee - Last Filed: 08/11/16 16:49> Subjective - Date & Time of Evaluation Date of Evaluation: 08/11/16 Time of Evaluation: 07:45 - Subjective Subjective: Pt is seen and evaluated at the bedside. Patient is eating well today, and denies nausea, vomiting and chest pain. Objective - Vital Signs/Intake and Output Vital Signs (last 24 hours): Temp Pulse Resp BP Pulse Ox 97.7 F 85 18 125/65 96 08/11/16 12:00 08/11/16 14:00 08/11/16 12:00 08/11/16 13:14 08/11/16 06:00 Intake and Output: 08/11/16 08/11/16 06:59 18:59 Intake Total 600 Balance 600 - Medications Medications: Current Medications Apixaban (Eliquis) 2.5 mg PO BID [facility] PRN Reason: Protocol Last Admin: 08/11/16 09:45 Dose: 2.5 mg Aspirin (Ecotrin) 81 mg PO 0800 [facility] Last Admin: 08/11/16 09:49 Dose: 81 mg Atenolol (Tenormin) 25 mg PO DAILY [facility] Atorvastatin Calcium (Lipitor) 10 mg PO DIN [facility] Last Admin: 08/10/16 16:24 Dose: 10 mg Digoxin (Lanoxin) 0.125 mg PO 1400 [facility] Last Admin: 08/11/16 13:14 Dose: 0.125 mg Donepezil HCl (Aricept) 5 mg PO HS [facility] Last Admin: 08/10/16 21:25 Dose: 5 mg Furosemide (Lasix) 40 mg IVP DAILY [facility] Last Admin: 08/11/16 09:44 Dose: 40 mg Glyburide (Micronase) 5 mg PO BID [facility] Last Admin: 08/10/16 18:31 Dose: 5 mg Insulin Human Regular (Humulin R Med) 0 units SC ACHS [facility] Last Admin: 08/11/16 09:48 Dose: Not Given Pantoprazole Sodium (Protonix Ec Tab) 40 mg PO 0630 [facility] Last Admin: 08/11/16 05:33 Dose: 40 mg Sitagliptin Phosphate (Januvia) 50 mg PO DAILY [facility] Verapamil HCl (Calan Tab) 40 mg PO TID [facility] Last Admin: 08/11/16 13:14 Dose: 40 mg Verapamil HCl (Verapamil Inj) 2.5 mg IVP Q6H PRN PRN Reason: For Heart rate >130 - Labs Labs: 08/11/16 06:00 08/11/16 06:00 PT 12.1 Seconds (9.9-11.8) H 08/09/16 11:00 INR 1.12 (0.93-1.08) H 08/09/16 11:00 APTT 27.6 Seconds (23.7-30.8) 08/09/16 11:00 - Additional Findings Additional findings: - Constitutional Appears: Non-toxic, No Acute Distress - Head Exam Head Exam: ATRAUMATIC, NORMOCEPHALIC - Eye Exam Eye Exam: EOMI, Normal appearance - Respiratory Exam Respiratory Exam: Clear to Ausculation Bilateral, NORMAL BREATHING PATTERN - Cardiovascular Exam Cardiovascular Exam: Irregular Rhythm, +S1, +S2 - GI/Abdominal Exam GI & Abdominal Exam: Soft. absent: Tenderness - Exam External exam: absent: Ecchymosis, Erythema - Extremities Exam Extremities Exam: Normal Capillary Refill. absent: Tenderness - Back Exam Back Exam: absent: CVA tenderness (L), CVA tenderness (R) - Neurological Exam Neurological Exam: Alert, Awake - Skin Skin Exam: Dry, Intact Assessment and Plan - Assessment and Plan (Free Text) Plan: 75 yo F w/ PMHx of HTN, DM, CAD with cardiac stents, A. fib, severe , dementia , w/ 2 week hx of worsening SOB. In ED, patient has sustained R. atrial fibrillation with HR in 170's that is treated with IV and PO cardizem. BNP is 3040. Pt is admitted to inpatient telemetry for R. a. fibrillation and CHF: R. A. fibrillation: Pt's vet assistant is Dr. Blaine Howe is requested for cardiology consult, help appreciated. CHADs2 score 3, HAS-BLED score 4 (hx of GI bleed) Initial EKG shows A. fibrillation at 177 bpm Cardizem drip discontinued and now started on verapamil 40 mg PO TID ASA 81, Elliquis 2.5 PO BID, rate controlled CHF: Daily I's and O's ordered Recent ECHO on 06/24/2016 showed normal EF, mild to moderate LVH, moderately to severely calcified aortic valve, moderate pulmonary hypertension Lasix 40 IVP QD CAD: Lipitor 10 po HS DM: The following medications for DM on hold due to low blood sugar levels: ISS, Januvia 50 mg PO QD, Glyburide 5mg PO BID Dementia: Aricept 5 mg PO HS ordered PPx measures: Continue Elliquis PO today. 2.5mg PO BID protonix Case discussed with case technician in detail for INDIGO placement, which was denied. Plan for pt d/c home tomorrow. <Vale Tanner - Last Filed: 08/11/16 17:39> Objective - Vital Signs/Intake and Output Vital Signs (last 24 hours): Temp Pulse Resp BP Pulse Ox 97.7 F 85 18 125/65 96 08/11/16 12:00 08/11/16 14:00 08/11/16 12:00 08/11/16 13:14 08/11/16 06:00 Intake and Output: 08/11/16 08/11/16 06:59 18:59 Intake Total 600 Balance 600 - Medications Medications: Current Medications Apixaban (Eliquis) 2.5 mg PO BID [facility] PRN Reason: Protocol Last Admin: 08/11/16 09:45 Dose: 2.5 mg Aspirin (Ecotrin) 81 mg PO 0800 [facility] Last Admin: 08/11/16 09:49 Dose: 81 mg Atenolol (Tenormin) 25 mg PO DAILY [facility] Atorvastatin Calcium (Lipitor) 10 mg PO DIN [facility] Last Admin: 08/10/16 16:24 Dose: 10 mg Donepezil HCl (Aricept) 5 mg PO HS [facility] Last Admin: 08/10/16 21:25 Dose: 5 mg Furosemide (Lasix) 40 mg IVP DAILY [facility] Last Admin: 08/11/16 09:44 Dose: 40 mg Glyburide (Micronase) 5 mg PO BID [facility] Last Admin: 08/10/16 18:31 Dose: 5 mg Insulin Human Regular (Humulin R Med) 0 units SC ACHS [facility] Last Admin: 08/11/16 09:48 Dose: Not Given Pantoprazole Sodium (Protonix Ec Tab) 40 mg PO 0630 [facility] Last Admin: 08/11/16 05:33 Dose: 40 mg Sitagliptin Phosphate (Januvia) 50 mg PO DAILY [facility] Verapamil HCl (Calan Tab) 40 mg PO TID [facility] Last Admin: 08/11/16 13:14 Dose: 40 mg Verapamil HCl (Verapamil Inj) 2.5 mg IVP Q6H PRN PRN Reason: For Heart rate >130 - Labs Labs: 08/11/16 06:00 08/11/16 06:00 PT 12.1 Seconds (9.9-11.8) H 08/09/16 11:00 INR 1.12 (0.93-1.08) H 08/09/16 11:00 APTT 27.6 Seconds (23.7-30.8) 08/09/16 11:00 Assessment and Plan - Assessment and Plan (Free Text) Assessment: attending note; Patient seen and examined with resident in ER. This is a 75-year-old Greek-speaking female admitted with rapid A. fib. treated with IV Cardizem. Currently on by mouth verapamil and digoxin. still with elevated heart rate with exertion. Digoxin discontinued. started on by mouth atenolol.case discussed with cardiology Dr. Howe in detail. Continue Eliquis. Preauthorization obtained. Patient is noncompliance with medication. the diagnosis and follow-up plan discussed with patient's daughter in detail by the bedside. Physical therapy evaluation appreciated. home services arranged. Upon discharge patient will follow up with PMD Dr. sepulveda. patient will follow-up with cardiology Dr. Byers. Possible discharge home tomorrow if clinically stable. Attending/Attestation - Attestation I have personally seen and examined this patient.: Yes I have fully participated in the care of the patient.: Yes I have reviewed all pertinent clinical information, including history, physical exam and plan: Yes
[2016-08-12] MEDS: Pantoprazole 40 mg EC Tab PO SCH (05:32)
[2016-08-12 08:01] LABS: ADD MANUAL DIFF? NO
[2016-08-12 08:08] LABS: BASO # 0.03 K/mm3 (0.0-2.0); BASO % 0.5 % (0.0-3.0); EOS # 0.2 (0.0-0.7); EOS % 2.6 % (1.5-5.0); GRAN # 2.57 (1.4-6.5); GRAN % 44.8 % (50.0-68.0); HEMATOCRIT 39.4 % (36.0-48.0); LYMPH # 2.3 (1.2-3.4); LYMPH % 39.9 % (22.0-35.0); MEAN CELL VOLUME 90.2 fL (80.0-105.0); MEAN CORPUSCULAR HEMOGLOBIN 29.1 pg (25.0-35.0); MEAN CORPUSCULAR HGB CONC 32.2 g/dl (31.0-37.0); MEAN PLATELET VOLUME 9.8 fl (7.0-11.0); MONO # 0.7 (0.1-0.6); MONO % 12.2 % (1.0-6.0); PLATELET COUNT 213 10^3/uL (120.0-450.0); RED CELL DISTRIBUTION WIDTH 18.4 % (11.5-14.5); WHITE BLOOD COUNT 5.7 10^3/ul (4.5-11.0)
[2016-08-12 08:30] LABS: BILIRUBIN,TOTAL 0.9 mg/dL (0.2-1.3); CALCIUM 8.6 mg/dL (8.4-10.5); POTASSIUM 3.8 mmol/L (3.6-5.0); TOTAL PROTEIN 6.5 g/dL (5.8-8.3)
--- NOTE | 2016-08-12 09:38 | CP.PCM.DIS ---
<Shawnee Neumann - Last Filed: 08/12/16 09:52> Provider - Provider Date of Admission: 08/09/16 13:54 Attending physician: Vale Tanner MD Primary care physician: NO PRIMARY CARE PROVIDER Consults: Dr. Howe, cardiology Time Spent in preparation of Discharge (in minutes): 41 Hospital Course - Lab Results Lab Results: Most Recent Lab Values WBC 5.7 10^3/ul (4.5-11.0) 08/12/16 07:58 RBC 4.37 10^6/uL (3.5-6.1) 08/12/16 07:58 Hgb 12.7 gm/dL (12.0-16.0) 08/12/16 07:58 Hct 39.4 % (36.0-48.0) 08/12/16 07:58 MCV 90.2 fL (80.0-105.0) 08/12/16 07:58 MCH 29.1 pg (25.0-35.0) 08/12/16 07:58 MCHC 32.2 g/dl (31.0-37.0) 08/12/16 07:58 RDW 18.4 % (11.5-14.5) H 08/12/16 07:58 Plt Count 213 10^3/uL (120.0-450.0) 08/12/16 07:58 MPV 9.8 fl (7.0-11.0) 08/12/16 07:58 Gran % 44.8 % (50.0-68.0) L 08/12/16 07:58 Lymph % (Auto) 39.9 % (22.0-35.0) H 08/12/16 07:58 Millard % (Auto) 12.2 % (1.0-6.0) H 08/12/16 07:58 Eos % (Auto) 2.6 % (1.5-5.0) 08/12/16 07:58 Baso % (Auto) 0.5 % (0.0-3.0) 08/12/16 07:58 Gran # 2.57 (1.4-6.5) 08/12/16 07:58 Lymph # 2.3 (1.2-3.4) 08/12/16 07:58 Millard # 0.7 (0.1-0.6) H 08/12/16 07:58 Eos # 0.2 (0.0-0.7) 08/12/16 07:58 Baso # 0.03 K/mm3 (0.0-2.0) 08/12/16 07:58 PT 12.1 Seconds (9.9-11.8) H 08/09/16 11:00 INR 1.12 (0.93-1.08) H 08/09/16 11:00 APTT 27.6 Seconds (23.7-30.8) 08/09/16 11:00 Sodium 137 mmol/L (132-148) 08/12/16 07:57 Potassium 3.8 mmol/L (3.6-5.0) 08/12/16 07:57 Chloride 100 mmol/L (98-107) 08/12/16 07:57 Carbon Dioxide 27 mmol/L (21-33) 08/12/16 07:57 Anion Gap 14 (10-20) 08/12/16 07:57 BUN 21 mg/dL (7-21) 08/12/16 07:57 Creatinine 1.2 mg/dL (0.5-1.4) 08/12/16 07:57 Est GFR ( Amer) 53 08/12/16 07:57 Est GFR (Non-Af Amer) 44 08/12/16 07:57 POC Glucose (mg/dL) 73 mg/dL (65-110) 08/12/16 07:37 Random Glucose 74 mg/dL (70-110) 08/12/16 07:57 Calcium 8.6 mg/dL (8.4-10.5) 08/12/16 07:57 Total Bilirubin 0.9 mg/dL (0.2-1.3) 08/12/16 07:57 AST 38 U/L (15-39) 08/12/16 07:57 ALT 20 U/L (7-56) 08/12/16 07:57 Alkaline Phosphatase 91 U/L (38-133) 08/12/16 07:57 Lactate Dehydrogenase 581 U/L (333-699) 08/10/16 02:45 Total Creatine Kinase 49 U/L (35-230) 08/10/16 02:45 Troponin I 0.07 ng/mL 08/10/16 06:30 NT-Pro-B Natriuret Pep 3040 pg/mL (0-450) H 08/09/16 11:00 Total Protein 6.5 g/dL (5.8-8.3) 08/12/16 07:57 Albumin 3.3 g/dL (3.0-4.8) 08/12/16 07:57 Globulin 3.2 gm/dL 08/12/16 07:57 Albumin/Globulin Ratio 1.0 (1.1-1.8) L 08/12/16 07:57 - Hospital Course Hospital Course: 75 yo F w/ PMHx of HTN, DM, CAD with cardiac stents, A. fib, severe , dementia , presents to the ED with progressively worsening SOB for 2 weeks. Pt walks with a cane. HR 177 initially on EKG showing a.fibrillation. Pt treated with IV and PO cardizem in ED. Inpatient admission to Telemetry for rapid atrial fibrillation and CHF. BNP is 3040. 08/10: B/L venous doppler negative for DVT, indeterminate troponins, treated with elliquis and verapamil. Discharged home in fair condition with the following instructions: "You are discharged. Please follow up with your primary medical doctor or if your physician is unavailable, the [facility] clinic at [place], within 2 weeks. Please follow-up with your industrial truck driver Dr. Richard Byers for evaluation for TAVR procedure. Please take the following prescriptions: Eliquis 2.5 mg PO BID (one tab by mouth twice daily), verapamil 40 mg PO TID ( one tab by mouth three times a day), and atenolol 25 mg PO QD (one tab by mouth daily). Please return to hospital for worsening of symptoms." Pt indicated understanding before discharge. Discharge Exam - Head Exam Head Exam: NORMOCEPHALIC - Additional Findings Additional findings: - Constitutional Appears: Non-toxic, No Acute Distress - Head Exam Head Exam: ATRAUMATIC, NORMOCEPHALIC - Eye Exam Eye Exam: EOMI, Normal appearance - Respiratory Exam Respiratory Exam: Clear to Ausculation Bilateral, NORMAL BREATHING PATTERN - Cardiovascular Exam Cardiovascular Exam: Irregular Rhythm, +S1, +S2 - GI/Abdominal Exam GI & Abdominal Exam: Soft. absent: Tenderness - Exam External exam: absent: Ecchymosis, Erythema - Extremities Exam Extremities Exam: Normal Capillary Refill. absent: Tenderness - Back Exam Back Exam: absent: CVA tenderness (L), CVA tenderness (R) - Neurological Exam Neurological Exam: Alert, Awake - Skin Skin Exam: Dry, Intact Discharge Plan - Discharge Medications Prescriptions: Verapamil [Calan Tab] 40 mg PO TID #90 tab Apixaban [Eliquis] 2.5 mg PO BID #60 tab Atenolol [Tenormin] 25 mg PO DAILY #30 tablet - Follow Up Plan Condition: STABLE Disposition: HOME/ ROUTINE Instructions: Heart Failure (DC), Heart Failure (GEN), Pacemaker (DC), Pacemaker (GEN), Pulmonary Edema (DC), Pulmonary Edema (GEN), Ascites (DC), Ascites (GEN) Additional Instructions: You are discharged. Please follow up with your primary medical doctor or if your physician is unavailable, the [facility] at [place], within 2 weeks. Please follow-up with your industrial truck driver Dr. Richard Byers for evaluation for TAVR procedure. Please take the following prescriptions: Eliquis 2.5 mg PO BID (one tab by mouth twice daily), verapamil 40 mg PO TID ( one tab by mouth three times a day), and atenolol 25 mg PO QD (one tab by mouth daily). Please return to hospital for worsening of symptoms. Referrals: [facility], [Non-Staff] - Ashly Byers MD [Staff Provider] - <Vale Tanner - Last Filed: 08/12/16 13:28> Provider - Provider Date of Admission: 08/09/16 13:54 Attending physician: Vale Tanner MD Primary care physician: NO PRIMARY CARE PROVIDER Time Spent in preparation of Discharge (in minutes): 35 Hospital Course - Lab Results Lab Results: Most Recent Lab Values WBC 5.7 10^3/ul (4.5-11.0) 08/12/16 07:58 RBC 4.37 10^6/uL (3.5-6.1) 08/12/16 07:58 Hgb 12.7 gm/dL (12.0-16.0) 08/12/16 07:58 Hct 39.4 % (36.0-48.0) 08/12/16 07:58 MCV 90.2 fL (80.0-105.0) 08/12/16 07:58 MCH 29.1 pg (25.0-35.0) 08/12/16 07:58 MCHC 32.2 g/dl (31.0-37.0) 08/12/16 07:58 RDW 18.4 % (11.5-14.5) H 08/12/16 07:58 Plt Count 213 10^3/uL (120.0-450.0) 08/12/16 07:58 MPV 9.8 fl (7.0-11.0) 08/12/16 07:58 Gran % 44.8 % (50.0-68.0) L 08/12/16 07:58 Lymph % (Auto) 39.9 % (22.0-35.0) H 08/12/16 07:58 Millard % (Auto) 12.2 % (1.0-6.0) H 08/12/16 07:58 Eos % (Auto) 2.6 % (1.5-5.0) 08/12/16 07:58 Baso % (Auto) 0.5 % (0.0-3.0) 08/12/16 07:58 Gran # 2.57 (1.4-6.5) 08/12/16 07:58 Lymph # 2.3 (1.2-3.4) 08/12/16 07:58 Millard # 0.7 (0.1-0.6) H 08/12/16 07:58 Eos # 0.2 (0.0-0.7) 08/12/16 07:58 Baso # 0.03 K/mm3 (0.0-2.0) 08/12/16 07:58 PT 12.1 Seconds (9.9-11.8) H 08/09/16 11:00 INR 1.12 (0.93-1.08) H 08/09/16 11:00 APTT 27.6 Seconds (23.7-30.8) 08/09/16 11:00 Sodium 137 mmol/L (132-148) 08/12/16 07:57 Potassium 3.8 mmol/L (3.6-5.0) 08/12/16 07:57 Chloride 100 mmol/L (98-107) 08/12/16 07:57 Carbon Dioxide 27 mmol/L (21-33) 08/12/16 07:57 Anion Gap 14 (10-20) 08/12/16 07:57 BUN 21 mg/dL (7-21) 08/12/16 07:57 Creatinine 1.2 mg/dL (0.5-1.4) 08/12/16 07:57 Est GFR ( Amer) 53 08/12/16 07:57 Est GFR (Non-Af Amer) 44 08/12/16 07:57 POC Glucose (mg/dL) 153 mg/dL (65-110) H 08/12/16 11:23 Random Glucose 74 mg/dL (70-110) 08/12/16 07:57 Calcium 8.6 mg/dL (8.4-10.5) 08/12/16 07:57 Total Bilirubin 0.9 mg/dL (0.2-1.3) 08/12/16 07:57 AST 38 U/L (15-39) 08/12/16 07:57 ALT 20 U/L (7-56) 08/12/16 07:57 Alkaline Phosphatase 91 U/L (38-133) 08/12/16 07:57 Lactate Dehydrogenase 581 U/L (333-699) 08/10/16 02:45 Total Creatine Kinase 49 U/L (35-230) 08/10/16 02:45 Troponin I 0.07 ng/mL 08/10/16 06:30 NT-Pro-B Natriuret Pep 3040 pg/mL (0-450) H 08/09/16 11:00 Total Protein 6.5 g/dL (5.8-8.3) 08/12/16 07:57 Albumin 3.3 g/dL (3.0-4.8) 08/12/16 07:57 Globulin 3.2 gm/dL 08/12/16 07:57 Albumin/Globulin Ratio 1.0 (1.1-1.8) L 08/12/16 07:57 - Hospital Course Hospital Course: attending note; Patient seen and examined with resident. This is a 75-year-old [place]orese-speaking female admitted with rapid A. fib. treated with IV Cardizem. Currently on by mouth verapamil and atenolol. HR in 80s. better controlled. case discussed with cardiology Dr. Howe in detail. Continue Eliquis. Preauthorization obtained. Patient is noncompliance with medication. the diagnosis and follow-up plan discussed with patient's daughter in detail. Physical therapy evaluation appreciated. home services arranged. Upon discharge patient will follow up with PMD Dr. sepulveda. patient will follow-up with cardiology Dr. Blaine Byers. Discharge home today. Diagnosis: A fib non compliance aortic stenosis gait instability
[2016-08-12 12:26] VITALS: RESP 19; TEMP 98.7
--- NOTE | 2016-08-12 14:00 | PN ---
DATE: 08/12/2016 The patient in room 269, bed 1. REASON FOR CONSULTATION AND FOLLOWUP: Aortic stenosis, coronary artery disease, history of PTCA, adm itted with shortness of breath and atrial fibrillation with rapid ventricular rate. The patient has history of chronic atrial fibrillation. HISTORY OF PRESENT ILLNESS: The patient is a 75-year-old Japanese speaking female whose past history is significant for coronary artery disease status post PTCA of LAD 3 years ago. The patient had atri al fibrillation in the past, was not put on Eliquis earlier because of fall in hemoglobin and GI blee ding, but now patient was started on Eliquis recently and she has been stable. The patient admitted this time with shortness of breath and found to have atrial fibrillation with rapid rate. The patien t is lying flat in bed without chest pain, shortness of breath, palpitation. PHYSICAL EXAMINATION: VITAL SIGNS: Blood pressure 98/59, respirations 18, pulse 88. The patient is afebrile. HEAD: Normocephalic. EYES: Pupils normal. Conjunctivae normal. NOSE AND THROAT: Normal. NECK: JVP low. Carotid equal. THORAX: AP diameter normal. LUNGS: Clear. CARDIOVASCULAR: S1, S2. ABDOMEN: Soft, nontender, no organomegaly. EXTREMITIES: No clubbing, no cyanosis. LABORATORY DATA: WBC 5.7, hemoglobin 12.7, hematocrit 39.4, platelet 213. Sodium 137, potassium 3.8 , BUN 21, creatinine 1.2, random sugar 153. AST, ALT normal. Total protein and albumin normal. DIAGNOSES: Atrial fibrillation with rapid ventricular rate which is improving now, critical aortic s tenosis, valve area of 0.7 cm2, coronary artery disease status post stent 3 years ago, repeat cath in 2014 showed 90% nondominant right coronary artery occluded, patent stent in the left anterior descen ding, 40% stenosis of left anterior descending, circumflex has nonsignificant stenosis which is a dom inant vessel. Recent echo showed ejection fraction of 74%, severe aortic stenosis, valve area 0.7 cm 2. Moderate pulmonary hypertension, moderate tricuspid regurgitation, right ventricle systolic press ure of 55 mmHg, echo was done on 06/24/2016. RECOMMENDATION AND PLAN: Continue anticoagulation with Eliquis. We will continue to monitor H and H , if the patient stays stable we will continue on Eliquis. The patient follows outpatient with cardi keshia, Dr. Ashly Byers in [place], which she will continue. The patient is on verapamil 40 mg t.i.d., aspirin 81 mg daily, Eliquis 2.5 b.i.d., Januvia 50 mg daily, furosemide 40 mg IV daily, L ipitor 10 mg daily, glyburide 5 mg b.i.d., Protonix 40 daily, atenolol 25 mg p.o. daily. The patient will continue verapamil 40 mg p.o. t.i.d., aspirin 81 mg p.o. daily, Eliquis 2.5 b.i.d., Januvia 50 mg daily, furosemide 40 IV daily, atorvastatin 10 mg daily, glyburide 5 mg b.i.d., and atenolol 25 mg daily. We will continue present therapy and we will follow with you. Soraya Ibarra MD cc: [id number] TT: 08/12/2016 13:59:07 Confirmation # [id number] Dictation # [id number] jn
[2016-08-12 14:13] VITALS: BP 99/58; PULSE 96
--- NOTE | 2016-08-15 09:49 | PQF CHF ---
This form is a permanent part of the medical record Dr. Tanner, Pt admitted in telemetry for rapid atrial fibrillation and CHF. Please specify the severity and type of CHF below the physician's response. Thank you. Clarification of your documentation is requested to better reflect the severity of illness and intensity of treatment of your patient. Indicators present [x] Diagnosis of CHF and/or history of CHF [x] BNP > 200 3040 [] Imaging Finding of Pulmonary Edema /Pleural Effusions [] Fluid/Volume Overload [] Pitting edema [] Ejection Fraction < 40% (Indicative of Systolic Heart Failure) [] Ejection Fraction > 40% (Indicative of Diastolic Heart Failure) [] Dyspnea / Orthopenea / Paroxysmal Nocturnal Dyspnea [] Other: Location in the medical record that reflects the above clinical findings: [] Treatment Provided: [] PHYSICIAN'S RESPONSE Based on your medical judgment of the clinical indicators outlined above, are you treating this patient for a known or suspected: [x] Acute CHF [] Systolic [x] Diastolic [] Combined [] Chronic CHF [] Systolic [] Diastolic [] Combined [] Acute on Chronic CHF []Systolic [] Diastolic [] Combined [] CHF due hypertension [] Acute systolic []Chronic systolic [] Acute/ chronic systolic [] Other, please indicate: [] [] If Unable to Determine, please check the box, sign and date. Present On Admission (POA) Indicator: [] Present at the time of admission [] Not present at the time of admission [] Clinically Undetermined In responding to this query, please exercise your independent professional judgment. The fact that a question is asked does not imply that any particular answer is desired or expected. Thank you for your clarification on this documentation. If you have any questions please call:[ ] * Thank you, [ ]LAKESHA RODRIGUEZradiographer angiogram JANIE
== END 2016-08-12 16:25 | disposition home health service (06) | DRG 293 ==
LOC: ED 10:23 → ERH 13:54 → 2RNO 16:20
PROVIDERS: ADMIT Internal Medicine; ATTEND Internal Medicine
DX: I11.0 Hypertensive heart disease with heart failure (principal); I50.31 Acute diastolic (congestive) heart failure; I27.2 Other secondary pulmonary hypertension; F03.90 Unspecified dementia, unspecified severity, without behavioral disturbance, psychotic disturbance, mood disturbance, and anxiety; I48.2 Chronic atrial fibrillation; I25.10 Atherosclerotic heart disease of native coronary artery without angina pectoris; E11.9 Type 2 diabetes mellitus without complications; I08.3 Combined rheumatic disorders of mitral, aortic and tricuspid valves; R26.9 Unspecified abnormalities of gait and mobility; Z95.5 Presence of coronary angioplasty implant and graft; Z91.14 Patient's other noncompliance with medication regimen; Z79.84 Long term (current) use of oral hypoglycemic drugs

== ENCOUNTER 2016-09-07 13:21 | Inpatient (IN) | payer OTHER, MEDICARE ==
[2016-09-07 14:00] VITALS: BMI 23.8
[2016-09-07] MEDS ORDERED: Famotidine 20mg/50ml 50 ML IVPB STA (14:08)
--- NOTE | 2016-09-07 14:52 | ED PDOC ---
Arrival/HPI - General Chief Complaint: Abdominal Pain Time Seen by Provider: 09/07/16 13:23 Historian: Patient - History of Present Illness Narrative History of Present Illness (Text): 09/07/16 13:49 A 75 year old female, whose past medical history includes diabetes, hypertension , hyperlipidemia, CHF (on water pill), and Atrial fibrillation (On eliquis), is brought into the emergency department by EMS for complaints of intermittent burning sensation to the epigastric region for the past 1 week. Patient notes associated nausea. She states earlier today she had nausea and 1 episode of non bloody non bilious vomit. She denies any diarrhea, constipation, fever, cough, chest pain, black stool, rectal bleeding or any other complaints at this time. EMS states the patient was in rapid atrial fibrillation so 20 of Cardizem was given, which improved rate to 80-110. PMD: Dr. Chaves Time/Duration: 1 week Symptom Onset: Sudden Symptom Course: Intermittent Quality: Other Activities at Onset: Rest Context: Home Associated Symptoms (Text): nausea and vomiting Past Medical History - Provider Review Nursing Documentation Reviewed: Yes - Cardiac Hx Cardiac Disorders: Yes Hx Hypertension: Yes - Pulmonary Hx Respiratory Disorders: Yes Hx Chronic Obstructive Pulmonary Disease (COPD): Yes - Neurological Hx Neurological Disorder: Yes Hx Dementia: Yes - HEENT Hx HEENT Disorder: No - Renal Hx Renal Disorder: No - Endocrine/Metabolic Hx Endocrine Disorders: Yes Hx Diabetes Mellitus Type 2: Yes - Hematological/Oncological Hx Blood Disorders: No - Integumentary Hx Dermatological Disorder: No - Musculoskeletal/Rheumatological Hx Musculoskeletal Disorders: Yes Hx Falls: Yes Hx Unsteady Gait: Yes (CANE WALKER) - Gastrointestinal Hx Gastrointestinal Disorders: No - Genitourinary/Gynecological Hx Genitourinary Disorders: No - Psychiatric Hx Psychophysiologic Disorder: No Hx Substance Use: No - Surgical History Hx Cardiac Catheterization: Yes Hx Coronary Stent: Yes (X1) - Anesthesia Hx Anesthesia: Yes Hx Anesthesia Reactions: No Hx Malignant Hyperthermia: No Family/Social History - Physician Review Nursing Documentation Reviewed: Yes Family/Social History: Unknown Family HX Smoking Status: Never Smoked Hx Alcohol Use: No Hx Substance Use: No Allergies/Home Meds Allergies/Adverse Reactions: Allergies No Known Allergies Allergy (Verified 09/07/16 14:00) Home Medications: Home Meds Medication Instructions Recorded Confirmed Atorvastatin Calcium 10 mg PO DIN 06/23/16 08/09/16 Donepezil HCl [Aricept Odt] 5 mg PO Q6 PRN 06/23/16 08/09/16 Lisinopril [Zestril] 20 mg PO DAILY 06/23/16 08/09/16 SITagliptin [Januvia] 100 mg PO DAILY 06/23/16 08/09/16 Review of Systems - Physician Review All systems were reviewed & negative as marked: Yes - Review of Systems Constitutional: absent: Fevers Respiratory: absent: Cough Cardiovascular: absent: Chest Pain Gastrointestinal: Abdominal Pain, Nausea, Vomiting. absent: Constipation, Diarrhea, Hematochezia Physical Exam Vital Signs Reviewed: Yes Vital Signs Temp Pulse Resp BP Pulse Ox 09/07/16 17:19 97 H 16 111/55 L 100 09/07/16 16:57 126 H 112/64 09/07/16 16:49 126 H 16 112/64 97 09/07/16 16:15 130 H 115/64 09/07/16 15:21 96 H 18 108/70 97 09/07/16 13:39 98.3 F 97 H 18 119/54 L 97 Temperature: Afebrile Blood Pressure: Hypotensive Pulse: Irregular Respiratory Rate: Normal Appearance: Positive for: Well-Appearing, Non-Toxic, Comfortable Pain Distress: None Mental Status: Positive for: Alert and Oriented X 3 - Systems Exam Head: Present: Atraumatic, Normocephalic Pupils: Present: PERRL Extroacular Muscles: Present: EOMI Conjunctiva: Present: Normal Mouth: Present: Moist Mucous Membranes Neck: Present: Normal Range of Motion Respiratory/Chest: Present: Clear to Auscultation, Good Air Exchange. No: Respiratory Distress, Accessory Muscle Use Cardiovascular: Present: Normal S1, S2, Irregular Rhythm. No: Murmurs Abdomen: Present: Normal Bowel Sounds. No: Tenderness, Distention, Peritoneal Signs, Rebound, Guarding Back: Present: Normal Inspection Upper Extremity: Present: Normal Inspection. No: Cyanosis, Edema Lower Extremity: Present: Normal Inspection. No: Edema Neurological: Present: GCS=15, CN II-XII Intact, Speech Normal Skin: Present: Warm, Dry, Normal Color. No: Rashes Psychiatric: Present: Alert, Oriented x 3, Normal Insight, Normal Concentration Medical Decision Making ED Course and Treatment: 09/07/16 13:49 Impression: A 75 year old female with abdominal pain and rapid atrial fibrillation. Differential Diagnosis include but are not limited to: Rapid Atrial Fibrillation and Abdominal Pain r/o ACS vs. gastritis vs. pancreatitis Plan: -- EKG -- Chest X-ray -- Labs -- Urinalysis -- Pepcid and Zofran -- Reassess and disposition Prior Visits: Notes and results from previous visits were reviewed. The patient last presented to the emergency department on 08/09/16 for evaluation of shortness of breath. Progress Notes: EKG: Ordered, reviewed, and independently interpreted the EKG. Rate : 107 BPM Rhythm : Atrial fibrillation Interpretation : No ST-segment elevations 09/07/16 15:30 Chest X-ray: Creator : Ovi Tapia MD COMPARISON: 08/09/2016 FINDINGS: LUNGS: No active pulmonary disease. PLEURA: No significant pleural effusion identified, no pneumothorax apparent. CARDIOVASCULAR: Normal. OSSEOUS STRUCTURES: No significant abnormalities. VISUALIZED UPPER ABDOMEN: Normal. OTHER FINDINGS: None. IMPRESSION: No active disease. 09/07/16 17:35 Patient's HR improved to 110's by EMS but then increased again in the ED to 130- 140's. Her blood work had an elevated BUN so we hydrated her with NS 500 ml with no much improvement in HR. Metoprolol 2.5mg IV given with no improvement. Cardizem 10mg IV given with HR now 80-90's. Her abdominal pain resolved on arrival. Abdomen continues to soft, NT, ND. She had not vomited in the ED. Hyperkalemia treated with Kayexlate. Lungs clear after IVF. 09/07/16 17:[address] Lutz who accept to Telemetry observation. Dr. Marcelo Burris admits to the Hospitalist. - Lab Interpretations Lab Results: 09/07/16 15:15 09/07/16 15:15 Lab Results 09/07/16 15:15: WBC 7.9 D, RBC 3.85, Hgb 11.2 L, Hct 34.4 L, MCV 89.4, MCH 29.1 , MCHC 32.6, RDW 17.6 H, Plt Count 169, MPV 9.7, Gran % 74.2 H, Lymph % (Auto) 18.7 L, Dawson % (Auto) 6.4 H, Eos % (Auto) 0.3 L, Baso % (Auto) 0.4, Gran # 5.89 , Lymph # 1.5, Dawson # 0.5, Eos # 0.0, Baso # 0.03, PT 12.6 H, INR 1.17 H, APTT 30.8, pO2 34, VBG pH 7.28 L, VBG pCO2 45.0, VBG HCO3 21.1, VBG Total CO2 22.5, VBG O2 Sat (Calc) 66.8 H, VBG Base Excess -5.6 L, VBG Potassium 5.2, Glucose 176 H, Lactate 1.5, FiO2 21.0, Sodium 137.0, Potassium 5.4 H, Chloride 112.0 H, Carbon Dioxide 19 L, Anion Gap 14, BUN 44 H, Creatinine 1.1, Est GFR ( Amer) 58, Est GFR (Non-Af Amer) 48, Random Glucose 164 H, Calcium 8.5, Total Bilirubin 0.8, AST 52 H, ALT 31, Alkaline Phosphatase 112, Lactate Dehydrogenase 666, Total Creatine Kinase 40, Troponin I < 0.01 D, NT-Pro-B Natriuret Pep 4790 H, Total Protein 6.3, Albumin 3.1, Globulin 3.1, Albumin/ Globulin Ratio 1.0 L, Lipase 94, Venous Blood Potassium 5.2 I have reviewed the lab results: Yes Interpretation: Abnormal lab values - RAD Interpretation Radiology Orders: 09/07/16 14:07 CHEST PORTABLE [RAD] Stat - Medication Orders Current Medication Orders: Discontinued Medications Diltiazem HCl (Cardizem) 10 mg IVP STAT STA Stop: 09/07/16 16:47 Last Admin: 09/07/16 16:57 Dose: 10 MG MAR Pulse and Blood Pressure Document 09/07/16 16:57 RR (Rec: 09/07/16 16:57 RR [id number]) Pulse Pulse Rate (60-90) 126 Blood Pressure Blood Pressure (100/60-150/90) 112/64 IVP Administration Document 09/07/16 16:57 RR (Rec: 09/07/16 16:57 RR [id number]) Charges for Administration # of IVP Administrations 1 Famotidine (Pepcid 20mg/50ml Premix) 50 mls @ 100 mls/hr IVPB STAT STA Stop: 09/07/16 14:37 Last Admin: 09/07/16 16:17 Dose: 100 MLS/HR eMAR Start Stop Document 09/07/16 16:17 RR (Rec: 09/07/16 16:17 RR [id number]) Intravenous Solution Start Date 09/07/16 Start Time 16:17 End Date 09/07/16 End time 16:47 Total Infusion Time 30 Sodium Chloride (Sodium Chloride 0.9%) 500 mls @ 999 mls/hr IV .Q31M STA Stop: 09/07/16 16:28 Last Admin: 09/07/16 16:16 Dose: 999 MLS/HR eMAR Start Stop Document 09/07/16 16:16 RR (Rec: 09/07/16 16:17 RR [id number]) Intravenous Solution Start Date 09/07/16 Start Time 16:16 End Date 09/07/16 End time 16:46 Total Infusion Time 30 Metoprolol Tartrate (Lopressor) 2.5 mg IVP STAT STA Stop: 09/07/16 16:11 Last Admin: 09/07/16 16:15 Dose: 2.5 MG MAR Pulse and Blood Pressure Document 09/07/16 16:15 RR (Rec: 09/07/16 16:49 RR [id number]) Pulse Pulse Rate (60-90) 130 Blood Pressure Blood Pressure (100/60-150/90) 115/64 IVP Administration Document 09/07/16 16:15 RR (Rec: 09/07/16 16:49 RR [id number]) Charges for Administration # of IVP Administrations 1 Ondansetron HCl (Zofran Inj) 4 mg IVP STAT STA Stop: 09/07/16 14:09 Last Admin: 09/07/16 16:17 Dose: 4 MG IVP Administration Document 09/07/16 16:17 RR (Rec: 09/07/16 16:17 RR [id number]) Charges for Administration # of IVP Administrations 1 Sodium Polystyrene Sulfonate (Kayexalate Oral Susp) 15 gm PO STAT STA Stop: 09/07/16 16:35 Last Admin: 09/07/16 16:57 Dose: 15 GM - Scribe Statement The provider has reviewed the documentation as recorded by the Polina Hamm Provider Scribe Attestation: All medical record entries made by the Polina were at my direction and personally dictated by me. I have reviewed the chart and agree that the record accurately reflects my personal performance of the history, physical exam, medical decision making, and the department course for this patient. I have also personally directed, reviewed, and agree with the discharge instructions and disposition. Disposition/Present on Arrival - Present on Arrival Any Indicators Present on Arrival: Yes History of DVT/PE: No History of Uncontrolled Diabetes: Yes Urinary Catheter: No History of Decub. Ulcer: No History Surgical Site Infection Following: None - Disposition Have Diagnosis and Disposition been Completed?: Yes Diagnosis: Rapid atrial fibrillation, Vomiting, Abdominal pain, Hyperkalemia Disposition: HOSPITALIZED Disposition Time: 17:38 Patient Plan: Observation Condition: FAIR Referrals: Jorge Chaves MD [Primary Care Provider] - Follow up with primary
--- NOTE | 2016-09-07 15:28 | RAD ---
HISTORY: abd pain COMPARISON: 08/09/2016 FINDINGS: LUNGS: No active pulmonary disease. PLEURA: No significant pleural effusion identified, no pneumothorax apparent. CARDIOVASCULAR: Normal. OSSEOUS STRUCTURES: No significant abnormalities. VISUALIZED UPPER ABDOMEN: Normal. OTHER FINDINGS: None. IMPRESSION: No active disease.
[2016-09-07 15:30] LABS: ADD MANUAL DIFF? NO
[2016-09-07 15:39] LABS: VENOUS BLOOD GAS BASE EXCESS -5.6 mmol/L (0.0-2.0); VENOUS BLOOD PH 7.28 (7.32-7.43)
[2016-09-07 15:49] LABS: BASO # 0.03 K/mm3 (0.0-2.0); BASO % 0.4 % (0.0-3.0); EOS % 0.3 % (1.5-5.0); GRAN # 5.89 (1.4-6.5); GRAN % 74.2 % (50.0-68.0); HEMATOCRIT 34.4 % (36.0-48.0); LYMPH # 1.5 (1.2-3.4); LYMPH % 18.7 % (22.0-35.0); MEAN CELL VOLUME 89.4 fL (80.0-105.0); MEAN CORPUSCULAR HEMOGLOBIN 29.1 pg (25.0-35.0); MEAN CORPUSCULAR HGB CONC 32.6 g/dl (31.0-37.0); MEAN PLATELET VOLUME 9.7 fl (7.0-11.0); MONO # 0.5 (0.1-0.6); MONO % 6.4 % (1.0-6.0); PLATELET COUNT 169 10^3/uL (120.0-450.0); RED CELL DISTRIBUTION WIDTH 17.6 % (11.5-14.5); WHITE BLOOD COUNT 7.9 10^3/ul (4.5-11.0)
[2016-09-07 15:51] LABS: ALKALINE PHOSPHATASE 112 U/L (38-133); ALT/SGPT 31 U/L (7-56); AST/SGOT 52 U/L (15-39); BILIRUBIN,TOTAL 0.8 mg/dL (0.2-1.3); BLOOD UREA NITROGEN 44 mg/dL (7-21); CALCIUM 8.5 mg/dL (8.4-10.5); CARBON DIOXIDE 19 mmol/L (21-33); CHLORIDE 109 mmol/L (98-107); GFR AFRICAN-AMERICAN 58; GLUCOSE,RANDOM 164 mg/dL (70-110); LIPASE 94 U/L (23-300); POTASSIUM 5.4 mmol/L (3.6-5.0); SODIUM 137 mmol/L (132-148); TOTAL PROTEIN 6.3 g/dL (5.8-8.3)
[2016-09-07 15:58] LABS: INR 1.17 (0.93-1.08); PARTIAL THROMBOPLASTIN TIME 30.8 Seconds (23.7-30.8)
[2016-09-07] MEDS ORDERED: Sodium Chloride 0.9% 500 ML IV STA (15:58)
[2016-09-07 16:05] LABS: TROPONIN I < 0.01 ng/mL
[2016-09-07] MEDS ORDERED: Metoprolol 1 mg/ml Inj IVP STA (16:10)
[2016-09-07] MEDS ORDERED: Sod Polystyrene Sulf 15 gm/60 ml Oral Susp PO STA (16:34)
[2016-09-07 17:49] LABS: URINE BILIRUBIN NEGATIVE (NEGATIVE); URINE BLOOD TRACE-INTACT (NEGATIVE); URINE GLUCOSE (UA) NEGATIVE (NEGATIVE); URINE KETONE NEGATIVE (NEGATIVE); URINE LEUKOCYTE ESTERASE NEGATIVE Leu/uL (NEGATIVE); URINE PROTEIN NEGATIVE mg/dL (<30 mg/dL); URINE UROBILINOGEN 0.2 E.U./dL (<1 E.U./dL)
[2016-09-07] MEDS ORDERED: DONEPEZIL HCL 5 MG PO PRN (17:56)
[2016-09-07] MEDS ORDERED: Metoprolol 1 mg/ml Inj IVP PRN (17:59)
[2016-09-07 18:03] LABS: URINE APPEARANCE CLEAR (CLEAR); URINE COLOR YELLOW (YELLOW)
[2016-09-07 18:05] LABS: URINE RBC 0 - 2 /hpf (0-2); URINE WBC 0 - 2 /hpf (0-6)
[2016-09-07 18:06] LABS: URINE BACTERIA TRACE (NEG)
--- NOTE | 2016-09-07 18:12 | CARD ---
APPROVED REPORT EKG Measurement Heart [id number] <Conclusion> Atrial fibrillation with rapid ventricular response Low voltage QRS Cannot rule out Anterior infarct, age undetermined Abnormal ECG
[2016-09-07] MEDS: Sodium Chloride 0.9% 1,000 ML IV SCH (18:18)
--- NOTE | 2016-09-07 18:38 | CP.PCM.HP ---
<Chip Morel - Last Filed: 09/07/16 19:04> History of Present Illness - History of Present Illness History of Present Illness: CC: Chest burning, Nausea, Vomiting HPI: Patient is a 75 year old female, with PMHx of dementia, diabetes , hypertension, hyperlipidemia, CHF , and Atrial fibrillation on anticoagulation , BIBA with complaint of intermittent burning sensation in her stomach and throat for the past week. She reports having nausea today and one episode of vomiting non-bloody, bilious emesis with undigested food. She also notes for the past month having black stool and an episode of soft/ watery bowel movement which was described as dark today. She denies any overt rectal bleed. She also denies any fever,chills, cough, chest pain, or SOB. She notes some leg swelling for which she elevates her legs While in the ED, she was found to be in Afib with RVR and given Cardizem which improved her heart rate. She has no other complaints at this time. PMD: Dr. Chaves Past Med Hx:dementia, diabetes, hypertension, hyperlipidemia, CHF , and Atrial fibrillation on anticoagulation, Past surg hx: 2 cardiac stents Allergies: NKDA Fam hx: unknown Social hx: denies alcohol, tobacco, or drug use Present on Admission - Present on Admission Any Indicators Present on Admission: No Review of Systems - Review of Systems Systems not reviewed;Unavailable: Dementia - Constitutional Constitutional: absent: Chills, Fever - EENT Eyes: absent: Change in Vision Nose/Mouth/Throat: absent: Mouth Pain, Odynophagia - Cardiovascular Cardiovascular: Leg Edema. absent: Chest Pain - Respiratory Respiratory: absent: Cough, Dyspnea - Gastrointestinal Gastrointestinal: Abdominal Pain, Diarrhea, Dyspepsia, Loose Stools, Melena, Nausea, Vomiting. absent: Hematemesis, Hematochezia - Genitourinary Genitourinary: Dysuria - Musculoskeletal Musculoskeletal: absent: Back Pain, Neck Pain - Integumentary Integumentary: absent: Pruritus, Rash, Wounds - Neurological Neurological: absent: Vertigo, Weakness - Psychiatric Psychiatric: absent: Anxiety, Depression - Endocrine Endocrine: absent: Change in Body Appearance Past Patient History - Infectious Disease Hx of Infectious Diseases: None - Tetanus Immunizations Tetanus Immunization: Unknown - Past Social History Smoking Status: Never Smoked Alcohol: None Drugs: Denies - CARDIAC Hx Cardiac Disorders: Yes Hx Hypertension: Yes - PULMONARY Hx Respiratory Disorders: Yes Hx Chronic Obstructive Pulmonary Disease (COPD): Yes - NEUROLOGICAL Hx Neurological Disorder: Yes Hx Dementia: Yes - HEENT Hx HEENT Problems: No - RENAL Hx Chronic Kidney Disease: No - ENDOCRINE/METABOLIC Hx Endocrine Disorders: Yes Hx Diabetes Mellitus Type 2: Yes - HEMATOLOGICAL/ONCOLOGICAL Hx Blood Disorders: No - INTEGUMENTARY Hx Dermatological Problems: No - MUSCULOSKELETAL/RHEUMATOLOGICAL Hx Musculoskeletal Disorders: Yes Hx Falls: Yes Hx Unsteady Gait: Yes (CANE WALKER) - GASTROINTESTINAL Hx Gastrointestinal Disorders: No - GENITOURINARY/GYNECOLOGICAL Hx Genitourinary Disorders: No - PSYCHIATRIC Hx Psychophysiologic Disorder: No Hx Substance Use: No - SURGICAL HISTORY Hx Cardiac Catheterization: Yes Hx Coronary Stent: Yes (X1) - ANESTHESIA Hx Anesthesia: Yes Hx Anesthesia Reactions: No Hx Malignant Hyperthermia: No Meds Allergies/Adverse Reactions: Allergies Allergy/AdvReac Type Severity Reaction Status Date / Time No Known Allergies Allergy Verified 09/07/16 14:00 Physical Exam - Constitutional Appears: Non-toxic, No Acute Distress - Head Exam Head Exam: ATRAUMATIC, NORMOCEPHALIC - Eye Exam Eye Exam: EOMI, Normal appearance, PERRL. absent: Conjunctival injection, Scleral icterus Pupil Exam: NORMAL ACCOMODATION, PERRL - ENT Exam ENT Exam: Mucous Membranes Moist, Normal Oropharynx - Neck Exam Neck exam: Positive for: Normal Inspection. Negative for: Tenderness, Thyromegaly - Respiratory Exam Respiratory Exam: Clear to Auscultation Bilateral, NORMAL BREATHING PATTERN. absent: Rales, Rhonchi, Wheezes - Cardiovascular Exam Cardiovascular Exam: Tachycardia, Irregular Rhythm, +S1, +S2, Systolic Murmur ( grade 2 systolic) - GI/Abdominal Exam GI & Abdominal Exam: Normal Bowel Sounds, Soft. absent: Distended, Firm, Tenderness - Rectal Exam Rectal Exam: Deferred - Extremities Exam Extremities exam: Positive for: normal capillary refill, pedal edema, pedal pulses present. Negative for: tenderness - Back Exam Back exam: NORMAL INSPECTION. absent: rash noted, tenderness - Neurological Exam Neurological exam: Alert, CN II-XII Intact - Psychiatric Exam Psychiatric exam: Normal Affect, Normal Mood - Skin Skin Exam: Dry, Intact, Warm Results - Vital Signs Recent Vital Signs: Last Vital Signs Temp 98.3 F 09/07/16 13:39 Pulse 97 H 09/07/16 17:19 Resp 16 09/07/16 17:19 BP 111/55 L 09/07/16 17:19 Pulse Ox 100 09/07/16 17:19 - Labs Result Diagrams: 09/07/16 15:15 09/07/16 15:15 Assessment & Plan - Assessment and Plan (Free Text) Assessment: 75 y/o F with PMHx of dementia, diabetes, hypertension, hyperlipidemia , CHF , and Atrial fibrillation on anticoagulation, presents with complaint of dyspepsia, nausea, vomiting, found to be in afib with RVR which improved with dose of cardizem. Plan: 1) Afib with RVR * Rate controlled with initial cardizem * Cardiology consulted, help appreciated * Continue home Verapamil and Atenolol * Give Lopressor PRN rate >115 * EKG showed Afib with RVR, old septal infarct * Chest x-ray showed no active disease process. * elevated BNP * Cardiac enzymes wnl * admitted to telemetry floor 2) Melena * GI consulted, help appreciated * Hgb and hct wnl * F/U repeat CBC * Eliquis held * Clear liquid diet and NPO after breakfast * Protonix IV Q12H 3) Electrolyte Abnormality * Pt hyperkalemic with at 5.4 * No ekg changes indicating hyperkalemic symptoms * give IV NS for gently hydration and f/u CMP 4) DM * Hold oral hypoglycemics * start ISS with regular accuchecks 5) Dementia * continue donazepil * urinalysis shows no UTI 6) PPX: * SCD's * Hold anticoagulation due to GI bleed * Protonix Q12H * Tylenol for Fever Assessment and plan discussed with attending physician. <Nelda PASTOR,Soraya - Last Filed: 09/08/16 13:20> Results - Vital Signs Recent Vital Signs: Last Vital Signs Temp 98 F 09/08/16 05:52 Pulse 100 H 09/08/16 10:08 Resp 20 09/08/16 05:52 BP 114/67 09/08/16 10:08 Pulse Ox 100 09/08/16 05:52 - Labs Result Diagrams: 09/08/16 02:20 09/08/16 02:20 Labs: Laboratory Results - last 24 hr 09/07/16 09/07/16 09/08/16 19:43 22:06 02:20 WBC 9.7 D RBC 3.49 L Hgb 10.3 L Hct 31.2 L MCV 89.4 MCH 29.5 MCHC 33.0 RDW 17.8 H Plt Count 160 MPV 9.6 Gran % 62.7 Lymph % (Auto) 27.7 Hernando % (Auto) 8.7 H Eos % (Auto) 0.6 L Baso % (Auto) 0.3 Gran # 6.07 Lymph # 2.7 Hernando # 0.8 H Eos # 0.1 Baso # 0.03 Sodium 139 Potassium 5.1 H Chloride 112 H Carbon Dioxide 19 L Anion Gap 13 BUN 43 H Creatinine 1.0 Est GFR ( Amer) > 60 Est GFR (Non-Af Amer) 54 POC Glucose (mg/dL) 164 H 163 H Random Glucose 138 H Calcium 8.2 L Magnesium 1.9 Total Bilirubin 0.7 AST 31 ALT 36 Alkaline Phosphatase 99 Troponin I < 0.01 Total Protein 5.8 Albumin 2.8 L Globulin 3.0 Albumin/Globulin Ratio 0.9 L Thyroxine (T4) 6.7 TSH 3rd Generation 1.48 Stool Occult Blood 09/08/16 09/08/16 03:00 07:22 WBC RBC Hgb Hct MCV MCH MCHC RDW Plt Count MPV Gran % Lymph % (Auto) Hernando % (Auto) Eos % (Auto) Baso % (Auto) Gran # Lymph # Hernando # Eos # Baso # Sodium Potassium Chloride Carbon Dioxide Anion Gap BUN Creatinine Est GFR ( Amer) Est GFR (Non-Af Amer) POC Glucose (mg/dL) 119 H Random Glucose Calcium Magnesium Total Bilirubin AST ALT Alkaline Phosphatase Troponin I Total Protein Albumin Globulin Albumin/Globulin Ratio Thyroxine (T4) TSH 3rd Generation Stool Occult Blood Positive H Attending/Attestation - Attestation I have personally seen and examined this patient.: Yes I have fully participated in the care of the patient.: Yes I have reviewed all pertinent clinical information: Yes Notes (Text): Patient was seen and examined with biomedical manager .Agreed with resident assessment and plan. 75 year old female, with PMHx of dementia, diabetes, hypertension, hyperlipidemia, CHF , Atrial fibrillation on anticoagulation, Aortic stenosis was admitted with epigastric pain, nausea, vomiting and history of melena at home, she was found to be in AF with RVR in ER, was given IV cardizem, multiple time and heart rate came down to 105.Hemoglobin is mildly low from base line. Agreed with restarting home atenolol and verapamil.We will use [place] Lopressor. We will hold anticoagulation due to H/O melena. We will start patient on IV PPI and monitor hemoglobin and hematocrit. We will get GI and cardiology consult. Management plan was discussed in detail with patient Education was provided.
[2016-09-07] MEDS: Insulin Lispro (humaLOG) LOW Coverage SC SCH (22:56)
--- NOTE | 2016-09-08 01:55 | CP.PCM.PN ---
Subjective - Date & Time of Evaluation Date of Evaluation: 09/08/16 Time of Evaluation: 01:54 - Subjective Subjective: 01:54 Patient was seen because of atrial fibrillation with RVR, rate went up to 180/ min, sustaining mostly in 140s'. Elevated rate since 11 PM. Patient has no complaints. Denies sob,cp,nausea, sweating, palpitation. Medical record was reviewed. Admitted for afib with RVR, melena. Has PMH of atrila fibrillation, CAD, cardiac stent placement, Aortic stenosis, DM, HTN, HLD, CHF. Objective - Vital Signs/Intake and Output Vital Signs (last 24 hours): Temp Pulse Resp BP Pulse Ox 98.3 F 183 H 16 125/74 100 09/07/16 13:39 09/08/16 01:11 09/07/16 17:19 09/08/16 01:11 09/07/16 17:19 - Medications Medications: Current Medications Acetaminophen (Tylenol 325mg Tab) 650 mg PO Q6 PRN PRN Reason: Pain, Mild (1-3) Acetaminophen (Tylenol 325mg Tab) 650 mg PO Q6 PRN PRN Reason: Fever >100.4 F Atenolol (Tenormin) 25 mg PO DAILY [facility] Sodium Chloride (Sodium Chloride 0.9%) 1,000 mls @ 75 mls/hr IV .[id number] [facility] Last Admin: 09/07/16 18:18 Dose: 75 mls/hr Insulin Human Lispro (Humalog Low) 0 units SC ACHS [facility] PRN Reason: Protocol Last Admin: 09/07/16 22:56 Dose: Not Given Metoprolol Tartrate (Lopressor) 5 mg IVP Q6 PRN PRN Reason: Heart rate Last Admin: 09/08/16 01:11 Dose: 5 mg Non-Formulary Medication (Donepezil Hcl [Aricept Odt]) 5 mg PO Q6 PRN PRN Reason: Anxiety Ondansetron HCl (Zofran Inj) 4 mg IM Q6H PRN PRN Reason: Nausea/Vomiting Pantoprazole Sodium (Protonix Inj) 40 mg IVP Q12 [facility] Last Admin: 09/07/16 22:56 Dose: 40 mg Verapamil HCl (Calan Tab) 40 mg PO TID [facility] Last Admin: 09/07/16 19:33 Dose: 40 mg - Labs Labs: PT 12.6 Seconds (9.9-11.8) H 09/07/16 15:15 INR 1.17 (0.93-1.08) H 09/07/16 15:15 APTT 30.8 Seconds (23.7-30.8) 09/07/16 15:15 - Constitutional Appears: Well, No Acute Distress - Head Exam Head Exam: ATRAUMATIC, NORMAL INSPECTION, NORMOCEPHALIC - Eye Exam Eye Exam: Normal appearance - ENT Exam ENT Exam: Normal External Ear Exam - Neck Exam Neck Exam: Normal Inspection - Respiratory Exam Respiratory Exam: NORMAL BREATHING PATTERN - Cardiovascular Exam Cardiovascular Exam: absent: JVD - GI/Abdominal Exam GI & Abdominal Exam: absent: Distended - Rectal Exam Rectal Exam: Deferred - Extremities Exam Extremities Exam: Normal Inspection - Back Exam Back Exam: NORMAL INSPECTION - Neurological Exam Neurological Exam: Alert, Oriented x3 - Psychiatric Exam Psychiatric exam: Normal Affect, Normal Mood - Skin Skin Exam: Normal Color Assessment and Plan - Assessment and Plan (Free Text) Assessment: A/P:Atrial fibrillation with RVR. HTN. CAD. Hx cardiac stent placement. DM. CHF. HLD. Will get all AM labs now instead of at 5AM. Will get magnesium level,troponin level. EKG stat. Cardizem 20 mg IV stat. 02:37 EKG-A Fib with RVR.No acute ST T changes.No changes in comparision with 09/07/16 EKG. HR 97/min. Systolic BP 92.2 Will monitor. 06:00 BP:110/67
[2016-09-08 02:37] LABS: ADD MANUAL DIFF? NO
[2016-09-08 02:41] LABS: BASO # 0.03 K/mm3 (0.0-2.0); BASO % 0.3 % (0.0-3.0); EOS # 0.1 (0.0-0.7); EOS % 0.6 % (1.5-5.0); GRAN # 6.07 (1.4-6.5); GRAN % 62.7 % (50.0-68.0); HEMATOCRIT 31.2 % (36.0-48.0); LYMPH # 2.7 (1.2-3.4); LYMPH % 27.7 % (22.0-35.0); MEAN CELL VOLUME 89.4 fL (80.0-105.0); MEAN CORPUSCULAR HEMOGLOBIN 29.5 pg (25.0-35.0); MEAN PLATELET VOLUME 9.6 fl (7.0-11.0); MONO # 0.8 (0.1-0.6); MONO % 8.7 % (1.0-6.0); PLATELET COUNT 160 10^3/uL (120.0-450.0); RED CELL DISTRIBUTION WIDTH 17.8 % (11.5-14.5)
[2016-09-08 02:44] LABS: WHITE BLOOD COUNT 9.7 10^3/ul (4.5-11.0)
[2016-09-08 02:58] LABS: ALB/GLOB RATIO 0.9 (1.1-1.8); ALKALINE PHOSPHATASE 99 U/L (38-133); ALT/SGPT 36 U/L (7-56); AST/SGOT 31 U/L (15-39); BILIRUBIN,TOTAL 0.7 mg/dL (0.2-1.3); BLOOD UREA NITROGEN 43 mg/dL (7-21); CALCIUM 8.2 mg/dL (8.4-10.5); CARBON DIOXIDE 19 mmol/L (21-33); CHLORIDE 112 mmol/L (98-107); GFR AFRICAN-AMERICAN > 60; GLUCOSE,RANDOM 138 mg/dL (70-110); MAGNESIUM 1.9 mg/dL (1.7-2.2); POTASSIUM 5.1 mmol/L (3.6-5.0); SODIUM 139 mmol/L (132-148); TOTAL PROTEIN 5.8 g/dL (5.8-8.3)
[2016-09-08 03:15] LABS: T4 6.7 ug/dL (5.5-11.0)
[2016-09-08 03:28] LABS: THYROID STIMULATING HORMONE 1.48 mIU/mL (0.46-4.68)
[2016-09-08] MEDS ORDERED: Sod Polystyrene Sulf 15 gm/60 ml Oral Susp PO ONE (07:30)
[2016-09-08] MEDS: Sodium Chloride 0.9% 1,000 ML IV SCH ×2 (08:07→21:36)
[2016-09-08] MEDS: Insulin Lispro (humaLOG) LOW Coverage SC SCH ×4 (08:07→21:49)
[2016-09-08] MEDS ORDERED: Digoxin 500 mcg/2ml (0.5 mg/2ml) Inj IVP ONE (09:20)
--- NOTE | 2016-09-08 09:58 | CP.PCM.PN ---
<ThienKris - Last Filed: 09/08/16 10:05> Subjective - Date & Time of Evaluation Date of Evaluation: 09/08/16 Time of Evaluation: 09:48 - Subjective Subjective: Note for Hospitalist PT s&e w attending. Pt continue to have intermittent dark stool /N/V. Pt also had Afib RVR overnight with HR running btween 90-180. Cardizem was given. No active bleeding at the moment. Eliquis is held. Pt c/o palpitation. H/H is stable. Pt was scheduled for EGD this AM. PT refused because of palpitation. Denies F/CP/SOB/dizziness/leg swelling. Objective - Vital Signs/Intake and Output Vital Signs (last 24 hours): Temp Pulse Resp BP Pulse Ox 98 F 125 H 20 110/67 100 09/08/16 05:52 09/08/16 09:07 09/08/16 05:52 09/08/16 09:07 09/08/16 05:52 Intake and Output: 09/08/16 09/08/16 06:59 18:59 Intake Total 405 Output Total 500 Balance -95 - Medications Medications: Current Medications Acetaminophen (Tylenol 325mg Tab) 650 mg PO Q6 PRN PRN Reason: Pain, Mild (1-3) Acetaminophen (Tylenol 325mg Tab) 650 mg PO Q6 PRN PRN Reason: Fever >100.4 F Atenolol (Tenormin) 25 mg PO DAILY [facility] Last Admin: 09/08/16 09:07 Dose: 25 mg Sodium Chloride (Sodium Chloride 0.9%) 1,000 mls @ 75 mls/hr IV .[id number] [facility] Last Admin: 09/08/16 08:07 Dose: 75 mls/hr Insulin Human Lispro (Humalog Low) 0 units SC ACHS SEA PRN Reason: Protocol Last Admin: 09/08/16 08:07 Dose: Not Given Metoprolol Tartrate (Lopressor) 5 mg IVP Q6 PRN PRN Reason: Heart rate Last Admin: 09/08/16 01:11 Dose: 5 mg Non-Formulary Medication (Donepezil Hcl [Aricept Odt]) 5 mg PO Q6 PRN PRN Reason: Anxiety Ondansetron HCl (Zofran Inj) 4 mg IM Q6H PRN PRN Reason: Nausea/Vomiting Pantoprazole Sodium (Protonix Inj) 40 mg IVP Q12 [facility] Last Admin: 09/08/16 09:08 Dose: 40 mg Verapamil HCl (Calan Tab) 40 mg PO TID [facility] Last Admin: 09/08/16 09:06 Dose: 40 mg - Labs Labs: 09/08/16 02:20 09/08/16 02:20 PT 12.6 Seconds (9.9-11.8) H 09/07/16 15:15 INR 1.17 (0.93-1.08) H 09/07/16 15:15 APTT 30.8 Seconds (23.7-30.8) 09/07/16 15:15 - Constitutional Appears: Non-toxic, No Acute Distress - Head Exam Head Exam: ATRAUMATIC, NORMAL INSPECTION, NORMOCEPHALIC - Eye Exam Eye Exam: EOMI, Normal appearance, PERRL Pupil Exam: NORMAL ACCOMODATION, PERRL - ENT Exam ENT Exam: Mucous Membranes Moist, Normal Exam - Neck Exam Neck Exam: Full ROM, Normal Inspection. absent: Lymphadenopathy - Respiratory Exam Respiratory Exam: Clear to Ausculation Bilateral, NORMAL BREATHING PATTERN. absent: Respiratory Distress - Cardiovascular Exam Cardiovascular Exam: Irregular Rhythm, +S1, +S2. absent: Murmur - GI/Abdominal Exam GI & Abdominal Exam: Soft, Normal Bowel Sounds. absent: Distended, Tenderness - Extremities Exam Extremities Exam: Full ROM, Normal Capillary Refill, Normal Inspection. absent : Joint Swelling, Pedal Edema - Back Exam Back Exam: NORMAL INSPECTION - Neurological Exam Neurological Exam: Alert, Awake, CN II-XII Intact, Normal Gait, Oriented x3 - Psychiatric Exam Psychiatric exam: Normal Affect, Normal Mood - Skin Skin Exam: Dry, Intact, Normal Color, Warm Assessment and Plan - Assessment and Plan (Free Text) Assessment: 75 y/o F with PMHx of dementia, diabetes, hypertension, hyperlipidemia , CHF , and Atrial fibrillation on anticoagulation, presents with complaint of dyspepsia, nausea, vomiting, found to be in afib with RVR which improved with dose of cardizem. Plan: 1) Afib with RVR * Rate controlled with initial cardizem and IV lopressor * Cardiology consulted, help appreciated * Continue home Verapamil and Atenolol * Give IV Lopressor PRN rate >115 * EKG showed Afib with RVR, old septal infarct * Chest x-ray showed no active disease process. * elevated BNP * Cardiac enzymes wnl * admitted to telemetry floor 2) Melena * GI consulted, help appreciated * Hgb and hct wnl * CBC q8 * Eliquis held * Clear liquid diet * Protonix IV Q12H * Obtain [facility] end[place] report 3) Electrolyte Abnormality * Pt hyperkalemic with at 5.1 * No ekg changes indicating hyperkalemic symptoms * IVF NS for gently hydration 4) DM * Hold oral hypoglycemics * ISS with regular accuchecks 5) Dementia * continue donazepil * urinalysis shows no UTI 6) PPX: * SCD's * Hold anticoagulation due to GI bleed * Protonix Q12H * Tylenol for Fever Assessment and plan discussed with attending physician. <Nelda PASTOR,Soraya - Last Filed: 09/08/16 13:28> Objective - Vital Signs/Intake and Output Vital Signs (last 24 hours): Temp Pulse Resp BP Pulse Ox 97.4 F L 58 L 19 108/55 L 100 09/08/16 12:00 09/08/16 12:00 09/08/16 12:00 09/08/16 12:00 09/08/16 05:52 Intake and Output: 09/08/16 09/08/16 06:59 18:59 Intake Total 405 Output Total 500 Balance -95 - Medications Medications: Current Medications Acetaminophen (Tylenol 325mg Tab) 650 mg PO Q6 PRN PRN Reason: Pain, Mild (1-3) Acetaminophen (Tylenol 325mg Tab) 650 mg PO Q6 PRN PRN Reason: Fever >100.4 F Atenolol (Tenormin) 25 mg PO DAILY [facility] Last Admin: 09/08/16 09:07 Dose: 25 mg Sodium Chloride (Sodium Chloride 0.9%) 1,000 mls @ 75 mls/hr IV .[id number] [facility] Last Admin: 09/08/16 08:07 Dose: 75 mls/hr Insulin Human Lispro (Humalog Low) 0 units SC ACHS SEA PRN Reason: Protocol Last Admin: 09/08/16 12:24 Dose: Not Given Metoprolol Tartrate (Lopressor) 5 mg IVP Q6 PRN PRN Reason: Heart rate Last Admin: 09/08/16 01:11 Dose: 5 mg Non-Formulary Medication (Donepezil Hcl [Aricept Odt]) 5 mg PO Q6 PRN PRN Reason: Anxiety Ondansetron HCl (Zofran Inj) 4 mg IM Q6H PRN PRN Reason: Nausea/Vomiting Pantoprazole Sodium (Protonix Inj) 40 mg IVP Q12 [facility] Last Admin: 09/08/16 09:08 Dose: 40 mg Verapamil HCl (Calan Tab) 40 mg PO TID [facility] Last Admin: 09/08/16 09:06 Dose: 40 mg - Labs Labs: 09/08/16 02:20 09/08/16 02:20 PT 12.6 Seconds (9.9-11.8) H 09/07/16 15:15 INR 1.17 (0.93-1.08) H 09/07/16 15:15 APTT 30.8 Seconds (23.7-30.8) 09/07/16 15:15 Attending/Attestation - Attestation I have personally seen and examined this patient.: Yes I have fully participated in the care of the patient.: Yes I have reviewed all pertinent clinical information, including history, physical exam and plan: Yes Notes (Text): Patient was seen and examined with medical record librarian .Agreed with resident assessment and plan. Patient with AF with RVR and melena, no active bleeding here in the hospital, hemoglobin is mildly lower since yesterday, anticoagulation is on hold, patient has refused EGD, we will continue PPI and will monitor hemoglobin and hematocrit. Atrial fibrilation , rate is still running high , was given extra IV cardizem, we will monitor Prognosis is guarded. Management plan was discussed in detail with patient Education was provided.
[2016-09-08 10:14] VITALS: PULSE 100
--- NOTE | 2016-09-08 11:40 | CON ---
DATE: 09/08/2016 REQUESTING PHYSICIAN: Dr. Lutz. REASON FOR CONSULT: I have been asked to see this 75-year-old female with known history of dementia, atrial fibrillation on anticoagulants, congestive heart failure, diabetes mellitus, hypertension, wh o comes to the hospital with 1 episode of nonbloody vomiting, nausea, and melena. There is no histor y of any overt rectal bleeding. In the Emergency Room the patient was found to be in atrial fibrilla tion with rapid ventricular rate, with heart rate between 110 and 125. She currently denies any abdo jennifer pain, nausea and vomiting. PAST MEDICAL HISTORY: Again notable for atrial fibrillation, hyperlipidemia, dementia, diabetes babak itus, congestive heart failure and hypertension. She has had stent placements in the past. MEDICATIONS: Include an anticoagulant. Her PT/INR are normal. PHYSICAL EXAMINATION: Elderly female lying in bed in no acute distress. VITAL SIGNS: Reveal temperature of 99, blood pressure 114/67, heart rate of 100. HENT: Reveals sclerae to be white, conjunctivae pink. NECK: Supple. CHEST: Lungs are clear. HEART EXAMINATION: Reveals an irregular rate. ABDOMEN: Soft, nontender. EXTREMITIES: Show no edema. LABORATORY DATA: Reveal potassium 5.1, BUN 43, creatinine 1, blood sugar of 138. CBC reveals hemogl obin at 10.3, white blood cell count 9.7, platelet count of 160,000. IMPRESSION: A 75-year-old female with multiple comorbidities including coronary artery disease statu s post coronary artery stents, atrial fibrillation, congestive heart failure, diabetes mellitus, zen l insufficiency with gastrointestinal bleeding. The patient was on aspirin and Eliquis at home. Her blood count is stable at this time. I have recommended an upper endoscopy, which I was going to per form this morning, but the patient and her daughter have refused the procedure and have refused any w orkup. She apparently had an endoscopy within the last year at [facility]. RECOMMENDATIONS: 1. Follow CBC. 2. Hold Eliquis and aspirin. 3. Follow serial hematocrits. 4. Transfuse packed red blood cells as needed. 5. Continue PPI. 6. Advance diet as tolerated. Scott Mccoy MD cc: [id number] TT: 09/08/2016 11:40:25 Confirmation # [id number] Dictation # [id number]
--- NOTE | 2016-09-08 11:56 | CON ---
DATE: 09/08/2016 REASON FOR CONSULTATION: Atrial fibrillation with rapid ventricular rate, severe aortic stenosis, co ronary artery disease status post PTCA, admitted with AFib with rapid ventricular rate (chronic atria l fibrillation). BRIEF CLINICAL HISTORY: This is a 75-year-old Setsw[place] speaking female with past medical history sign ificant for coronary artery disease status post PTCA of LAD [address] wKan Byers. Rep eat catheterization 04/18/2015 shows proximal in-stent restenosis of LAD; medical treatment recommend ed. RCA is a nondominant 90% stenosis, preserved left ventricular function. History of chronic atri al fibrillation who was recently discharged from [facility] on Eliquis. Prior to that, the pat ient was discharged from [place] and was not placed on anticoagulation because of the GI bleed. The patient is being followed by Dr. Kwan Byers and Kaz as well. PAST MEDICAL HISTORY: Significant for chronic atrial fibrillation, hypertension, dementia, diabetes; history of cardiac catheterization and coronary artery stent, being followed by Dr. Kwan Byers ; history of gastrointestinal bleed, history of chronic atrial fibrillation. PREVIOUS CARDIAC WORKUP: Cardiac catheterization on 04/18/2015. Repeat echo shows a patent stent in the proximal LAD and mid LAD 40% stenosis, circumflex essentially free of significant disease, RCA n ondominant 90% stenosis, preserved left ventricular function. As mentioned, last echo 06/24/2016 rosy ws concentric LVH, severe valvular aortic stenosis, moderate aortic regurgitation, moderate mitral re gurg, moderate pulmonary hypertension, right ventricular systolic pressure 55, calculated valve area of 0.7 cm2. SOCIAL HISTORY: Denies smoking. Denies any history of alcohol abuse. ALLERGIES: No known drug allergy. CURRENT MEDICATIONS: The patient is taking glyburide 5 mg, verapamil 40 mg 3 times a day, Januvia 10 0 mg, lisinopril 20, Aricept 5 mg, atorvastatin 10, atenolol 25, aspirin 81, apixaban 2.5 mg daily. REVIEW OF SYSTEMS: As per HPI. PHYSICAL EXAMINATION: VITAL SIGNS: Temperature afebrile, heart rate 125, blood pressure 110/67. HEENT: PERRLA. Extraocular muscles intact. NECK: Supple. No carotid bruits. No thyromegaly. CHEST: Clear to auscultation. HEART: S1, S2 ____. ABDOMEN: Soft. EXTREMITIES: Clubbing and cyanosis negative. BLOOD WORKUP: WBC 9.7, hemoglobin 10.3, hematocrit 31.2, platelet count 160. Chemistry shows sodium 130, potassium 5.____, chloride 112, carbon dioxide 19, anion gap of 13, BUN 43, creatinine 1.0. Tr oponin 0.01 x 2, negative. EKG shows atrial fibrillation, rate rapid 130. IMPRESSION: Atrial fibrillation with rapid ventricular rate (chronic atrial fibrillation); coronary artery disease status post percutaneous transluminal coronary angioplasty 3 years ago; status post re peat catheterization 04/18/2015 that shows patent stent in LAD, mild in-stent is 40%, and circumflex is a dominant vessel, no significant stenosis. Right coronary artery is nondominant small artery, 90 % stenosis, preserved left ventricular function. Recent echocardiogram shows ejection fraction 74%, severe aortic stenosis with valve area 0.7 cm2, moderate pulmonary hypertension, moderate tricuspid r egurgitation, right ventricular systolic pressure 55 dated 06/24/2016. Admitting with atrial fibrill ation with rapid ventricular rate. RECOMMENDATION: We will give IV Cardizem 10 mg daily with 1 dose of IV Lasix then start atenolol, ve rapamil. Once stable, the patient can be discharged. Upon discharge, will follow with Dr. Kwan jeffers. Will discuss with Dr. Kwan Byers. Will follow with you. Thank you, Dr. Tanner, for providing us the opportunity in taking care of the patient. Soraya Howe MD cc: [id number] TT: 09/08/2016 10:48:56 Confirmation # [id number] Dictation # [id number] mn 09/08/2016 10:55:21
[2016-09-08 14:35] LABS: HEMATOCRIT 31.5 % (36.0-48.0); MEAN CELL VOLUME 88.5 fL (80.0-105.0); MEAN CORPUSCULAR HEMOGLOBIN 29.8 pg (25.0-35.0); MEAN CORPUSCULAR HGB CONC 33.7 g/dl (31.0-37.0); MEAN PLATELET VOLUME 10.1 fl (7.0-11.0); RED CELL DISTRIBUTION WIDTH 17.6 % (11.5-14.5)
--- NOTE | 2016-09-08 16:48 | CARD ---
APPROVED REPORT EKG Measurement Heart [id number] <Conclusion> Atrial fibrillation with rapid ventricular response Low voltage QRS Cannot rule out Anterior infarct, age undetermined Abnormal ECG
[2016-09-08] MEDS: cefTRIAXone 1 gm 100 ML IVPB SCH (17:44)
[2016-09-08 22:12] LABS: HEMATOCRIT 29.7 % (36.0-48.0); MEAN CELL VOLUME 90.3 fL (80.0-105.0); MEAN CORPUSCULAR HEMOGLOBIN 29.2 pg (25.0-35.0); MEAN CORPUSCULAR HGB CONC 32.3 g/dl (31.0-37.0); RED CELL DISTRIBUTION WIDTH 17.7 % (11.5-14.5); WHITE BLOOD COUNT 8.7 10^3/ul (4.5-11.0)
[2016-09-09] MEDS: Insulin Lispro (humaLOG) LOW Coverage SC SCH ×4 (08:58→22:16)
[2016-09-09] MEDS: cefTRIAXone 1 gm 100 ML IVPB SCH (09:04)
[2016-09-09] MEDS: Sodium Chloride 0.9% 1,000 ML IV SCH ×2 (11:02→23:30)
--- NOTE | 2016-09-09 12:49 | CP.PCM.PN ---
Addendum entered and electronically signed by Alfredo Huggins DO 09/09/16 13:03 : Correction: Patient had unremarkable UA however, Urine Culture grew E.Coli. Patient is on IV Rocephin daily. Original Note: <Alfredo Huggins - Last Filed: 09/09/16 12:46> Subjective - Date & Time of Evaluation Date of Evaluation: 09/09/16 Time of Evaluation: 07:55 - Subjective Subjective: Medicine progress note. Dr. Lutz Pt seen and examined at bedside. No acute events overnight. Patient is c/o mild headache and dizziness this morning and states that she feels like her sugar is low this morning. States that she would like to ambulate with some assistance within room today. Had two episodes of dark stools yesterday, however, patient states that it is becoming less dark and is formed. Denies any stool today. Denies any F/C. No N/V/D. No Abd pain. Objective - Vital Signs/Intake and Output Vital Signs (last 24 hours): Temp Pulse Resp BP Pulse Ox 97.1 F L 80 19 126/70 92 L 09/09/16 12:00 09/09/16 12:00 09/09/16 12:00 09/09/16 12:00 09/09/16 06:00 - Medications Medications: Current Medications Acetaminophen (Tylenol 325mg Tab) 650 mg PO Q6 PRN PRN Reason: Pain, Mild (1-3) Acetaminophen (Tylenol 325mg Tab) 650 mg PO Q6 PRN PRN Reason: Fever >100.4 F Atenolol (Tenormin) 37.5 mg PO DAILY [facility] Last Admin: 09/09/16 09:03 Dose: 37.5 mg Sodium Chloride (Sodium Chloride 0.9%) 1,000 mls @ 75 mls/hr IV .[id number] [facility] Last Admin: 09/09/16 11:02 Dose: 75 mls/hr Ceftriaxone Sodium (Rocephin 1 Gram Ivpb) 100 mls @ 100 mls/hr IVPB DAILY [facility] PRN Reason: Protocol Last Admin: 09/09/16 09:04 Dose: 100 mls/hr Insulin Human Lispro (Humalog Low) 0 units SC ACHS [facility] PRN Reason: Protocol Last Admin: 09/09/16 12:06 Dose: Not Given Metoprolol Tartrate (Lopressor) 5 mg IVP Q6 PRN PRN Reason: Heart rate Last Admin: 09/08/16 01:11 Dose: 5 mg Non-Formulary Medication (Donepezil Hcl [Aricept Odt]) 5 mg PO Q6 PRN PRN Reason: Anxiety Ondansetron HCl (Zofran Inj) 4 mg IM Q6H PRN PRN Reason: Nausea/Vomiting Pantoprazole Sodium (Protonix Inj) 40 mg IVP Q12 [facility] Last Admin: 09/09/16 09:04 Dose: 40 mg Verapamil HCl (Calan Tab) 40 mg PO TID [facility] Last Admin: 09/09/16 09:03 Dose: 40 mg - Labs Labs: 09/08/16 22:06 PT 12.6 Seconds (9.9-11.8) H 09/07/16 15:15 INR 1.17 (0.93-1.08) H 09/07/16 15:15 APTT 30.8 Seconds (23.7-30.8) 09/07/16 15:15 - Constitutional Appears: Well, No Acute Distress - Head Exam Head Exam: ATRAUMATIC, NORMAL INSPECTION, NORMOCEPHALIC - Eye Exam Eye Exam: EOMI, Normal appearance, PERRL. absent: Scleral icterus Pupil Exam: PERRL - ENT Exam ENT Exam: Mucous Membranes Moist, Normal Exam - Neck Exam Neck Exam: Full ROM, Normal Inspection - Respiratory Exam Respiratory Exam: Clear to Ausculation Bilateral, NORMAL BREATHING PATTERN. absent: Wheezes - Cardiovascular Exam Cardiovascular Exam: RRR, +S1, +S2. absent: JVD - GI/Abdominal Exam GI & Abdominal Exam: Soft. absent: Tenderness - Extremities Exam Extremities Exam: Normal Inspection - Neurological Exam Neurological Exam: Alert, Awake, Oriented x3 - Psychiatric Exam Psychiatric exam: Normal Affect, Normal Mood - Skin Skin Exam: Dry, Intact, Normal Color, Warm Assessment and Plan - Assessment and Plan (Free Text) Assessment: 75yo F with PMHx of dementia, diabetes, hypertension, hyperlipidemia, CHF, and Atrial fibrillation on anticoagulation, presents with complaint of dyspepsia, nausea, vomiting, found to be in Afib with RVR which improved with dose of cardizem. Also reports intermittent episodes of melena. 1. Afib with RVR Rate controlled with initial cardizem and IV lopressor Cardiology consulted, help appreciated Continue home Verapamil and Atenolol IV Lopressor PRN rate >115 EKG showed Afib with RVR, old septal infarct CXR - no active disease process. elevated BNP Cardiac enzymes wnl admitted to telemetry floor 2. Melena GI consulted, help appreciated, Dr. Ju Rausch and ASA Serial CBC Patient refused CBC this AM. Agreeable to getting CBC now. Will f/u. Theresecristian held Clear liquid diet, Advance as tolerated Protonix IV Q12H, may switch to PO Protonix if h/h stable Obtain [facility] endo report 3. Electrolyte Abnormality Hyperkalemia improving, continue to monitor No ekg changes indicating hyperkalemic symptoms IVF NS for gentle hydration 4. Hx of DM Hold oral hypoglycemics ISS with regular accuchecks 5. Hx of Dementia continue donazepil urinalysis shows no UTI 6. PPx SCD's Hold anticoagulation due to possible GI bleed Protonix Q12H IV Discussed case with Dr. Nelda Huggins PGY1 <Nelda PASTOR,Soraya - Last Filed: 09/09/16 15:34> Objective - Vital Signs/Intake and Output Vital Signs (last 24 hours): Temp Pulse Resp BP Pulse Ox 97.1 F L 75 19 121/69 92 L 09/09/16 12:00 09/09/16 14:17 09/09/16 12:00 09/09/16 14:17 09/09/16 06:00 - Medications Medications: Current Medications Acetaminophen (Tylenol 325mg Tab) 650 mg PO Q6 PRN PRN Reason: Pain, Mild (1-3) Acetaminophen (Tylenol 325mg Tab) 650 mg PO Q6 PRN PRN Reason: Fever >100.4 F Atenolol (Tenormin) 37.5 mg PO DAILY [facility] Last Admin: 09/09/16 09:03 Dose: 37.5 mg Sodium Chloride (Sodium Chloride 0.9%) 1,000 mls @ 75 mls/hr IV .[id number] [facility] Last Admin: 09/09/16 11:02 Dose: 75 mls/hr Ceftriaxone Sodium (Rocephin 1 Gram Ivpb) 100 mls @ 100 mls/hr IVPB DAILY [facility] PRN Reason: Protocol Last Admin: 09/09/16 09:04 Dose: 100 mls/hr Insulin Human Lispro (Humalog Low) 0 units SC ACHS SEA PRN Reason: Protocol Last Admin: 09/09/16 12:06 Dose: Not Given Metoprolol Tartrate (Lopressor) 5 mg IVP Q6 PRN PRN Reason: Heart rate Last Admin: 09/08/16 01:11 Dose: 5 mg Non-Formulary Medication (Donepezil Hcl [Aricept Odt]) 5 mg PO Q6 PRN PRN Reason: Anxiety Ondansetron HCl (Zofran Inj) 4 mg IM Q6H PRN PRN Reason: Nausea/Vomiting Pantoprazole Sodium (Protonix Inj) 40 mg IVP Q12 [facility] Last Admin: 09/09/16 09:04 Dose: 40 mg Verapamil HCl (Calan Tab) 40 mg PO TID [facility] Last Admin: 09/09/16 14:17 Dose: 40 mg - Labs Labs: 09/09/16 14:30 09/09/16 14:30 PT 12.6 Seconds (9.9-11.8) H 09/07/16 15:15 INR 1.17 (0.93-1.08) H 09/07/16 15:15 APTT 30.8 Seconds (23.7-30.8) 09/07/16 15:15 Attending/Attestation - Attestation I have personally seen and examined this patient.: Yes I have fully participated in the care of the patient.: Yes I have reviewed all pertinent clinical information, including history, physical exam and plan: Yes Notes (Text): Patient was seen and examined with medical record clerk .Agreed with resident assessment and plan. Patient gave history of 3 episode of melanotic stools yesterday , hemoglobin is stable since 24 hour.We will continue monitoring, will switch to oral PPI in 24 hour. Atrial fibrilation, rate was running high, Atenolol dose is increased to 37.5 mg po daily.Anticoagulation is on hold due to history of melena. Management plan was discussed in detail with patient Education was provided.
[2016-09-09 14:57] LABS: HEMATOCRIT 32.4 % (36.0-48.0); MEAN CELL VOLUME 91.5 fL (80.0-105.0); MEAN CORPUSCULAR HEMOGLOBIN 29.7 pg (25.0-35.0); MEAN CORPUSCULAR HGB CONC 32.4 g/dl (31.0-37.0); MEAN PLATELET VOLUME 9.3 fl (7.0-11.0); RED CELL DISTRIBUTION WIDTH 17.9 % (11.5-14.5); WHITE BLOOD COUNT 6.1 10^3/ul (4.5-11.0)
[2016-09-09 15:21] LABS: BLOOD UREA NITROGEN 28 mg/dL (7-21); CALCIUM 8.4 mg/dL (8.4-10.5); CARBON DIOXIDE 20 mmol/L (21-33); CHLORIDE 110 mmol/L (98-107); GFR AFRICAN-AMERICAN > 60; GLUCOSE,RANDOM 124 mg/dL (70-110); SODIUM 137 mmol/L (132-148)
[2016-09-10 01:02] VITALS: O2SAT 100
--- NOTE | 2016-09-10 04:04 | PN ---
DATE: 09/09/2016 REASON FOR CONSULTATION AND FOLLOWUP: Atrial fibrillation, rapid ventricular rate, severe aortic ami nosis, coronary artery disease, status post PTCA, admitted with AFib with rapid ventricular rate, chr onic atrial fibrillation. BRIEF CLINICAL HISTORY: A 75-year-old [place] Islander speaking female with a past medical history significan t for coronary artery disease, status post PTCA of LAD [address] Ashly Byers. Repeat catheterization 04/18/2015 shows proximal in-stent stenosis, mild LAD disease, circ is dominant, ess entially free of significant disease, RCA nondominant, history of paroxysmal atrial fibrillation now is persistent. The patient was started on Eliquis because of patient's drop in H and H. Denies any chest pain, shortness of breath, any palpitation. PHYSICAL EXAMINATION: VITAL SIGNS: Temperature afebrile, heart rate 91, blood pressure 121/69. HEENT: PERRLA. Extraocular muscles intact. NECK: Supple. No carotid bruits. No thyromegaly. CHEST: Clear to auscultation. HEART: S1, S2 regular. ABDOMEN: Soft. EXTREMITIES: Clubbing and cyanosis negative. LABORATORY DATA: WBC ____, hemoglobin 10.5, hematocrit 32.4, platelet count 155. Chemistry shows so dium ____, potassium 5, chloride 110, carbon dioxide 20, anion gap of 12, BUN 28, creatinine 1.0. IMPRESSION: Atrial fibrillation with rapid rate, now rate is well controlled, history of severe aort ic stenosis, coronary artery disease, paroxysmal atrial fibrillation, now is persistent, but since th e patient is dropping H and H, ____ continue anticoagulation, aortic stenosis, coronary artery diseas e, preserved left ventricular function, severe aortic ____ valve area of 0.7 cm2, moderate pulmonary hypertension, moderate tricuspid regurgitation dated 06/24/2016 echo. RECOMMENDATION: Cardizem was changed to p.o. Continue digoxin, continue metoprolol, continue verapa mil and follow up blood count. If patient drops, discussed with Dr. Marks, will discontinue Eliquis _ ___ patient had a GI bleed in [facility] drop in hemoglobin 6.1. We will follow ___ _ that patient can have a stroke. Discussed with the son at the bedside. Thank you, Dr. Marks, for providing the opportunity in taking care of the patient. Soraya Howe MD cc: [id number] TT: 09/09/2016 19:17:14 Confirmation # [id number] Dictation # [id number] rn
[2016-09-10] MEDS: Sodium Chloride 0.9% 1,000 ML IV SCH (04:27)
[2016-09-10] MEDS: Insulin Lispro (humaLOG) LOW Coverage SC SCH ×3 (07:43→17:07)
[2016-09-10] MEDS: cefTRIAXone 1 gm 100 ML IVPB SCH (09:13)
--- NOTE | 2016-09-10 13:00 | PN ---
DATE: 09/10/2016 REASON FOR CONSULTATION AND FOLLOWUP: Atrial fibrillation, rapid ventricular rate, aortic stenosis, coronary artery disease, status post PTCA, admitted with AFib with rapid ventricular rate, chronic at rial fibrillation. BRIEF CLINICAL HISTORY: A 75-year-old Malagasy speaking female with a past medical history significan t for coronary artery disease, status post PTCA of LAD [address] Ashly Byers. Repeat c atheterization 04/18/2015, nonobstructive coronary artery disease, RCA occluded, RCA 90% stenosis, no ndominant, medical treatment recommended. History of gastrointestinal bleed in the past. The patien t was restarted on Eliquis dropping, which on hold. PHYSICAL EXAMINATION: VITAL SIGNS: Temperature afebrile, heart rate 78, blood pressure 129/63. HEENT: PERRLA. Extraocular muscles intact. NECK: Supple. No carotid bruits. No thyromegaly. CHEST: Clear to auscultation. HEART: S1, S2 regular. ABDOMEN: Soft. EXTREMITIES: Clubbing, cyanosis negative. BLOOD WORKUP: WBC 6. , hemoglobin 10.5, hematocrit 32.4, platelet count 155. Chemistry shows so dium , potassium 5, chloride 110, carbon dioxide 20, anion gap of 12, BUN 28. IMPRESSION: Atrial fibrillation with rapid ventricular rate, severe aortic stenosis, status post per cutaneous transluminal coronary angioplasty, history of gastrointestinal bleed, intolerance for antic oagulation, dropped hemoglobin and hematocrit. RECOMMENDATION: Cardizem changed to p.o. Continue metoprolol. Discontinue IV Cardizem, change to v erapamil p.o. Continue metoprolol. Will put 2.5 verapamil p.r.n. If the patient remains stable, he art rate stable, discussed with Dr. Aurora Marks, will discharge to home. Thank you, Dr. Marks, for providing us the opportunity in taking care of the patient. Soraya Howe MD cc:Aurora Marks MD 305 TT: 09/10/2016 13:00:22 Confirmation # [id number] Dictation # [id number]
--- NOTE | 2016-09-10 13:40 | CP.PCM.DIS ---
<AurelioSander - Last Filed: 09/13/16 21:00> Provider - Provider Date of Admission: 09/08/16 14:53 Attending physician: Soraya Lutz MD Primary care physician: Jorge Chaves MD Consults: GI: Dr. Mccoy Cardio: Dr. Ibarra Time Spent in preparation of Discharge (in minutes): 40 Diagnosis - Discharge Diagnosis (1) Atrial fibrillation with RVR Status: Chronic (2) Melena Status: Resolved (3) Electrolyte abnormality Status: Resolved (4) Diabetes Status: Chronic (5) Dementia Status: Chronic Hospital Course - Lab Results Lab Results: Most Recent Lab Values WBC 6.1 10^3/ul (4.5-11.0) D 09/09/16 14:30 RBC 3.54 10^6/uL (3.5-6.1) 09/09/16 14:30 Hgb 10.5 gm/dL (12.0-16.0) L 09/09/16 14:30 Hct 32.4 % (36.0-48.0) L 09/09/16 14:30 MCV 91.5 fL (80.0-105.0) 09/09/16 14:30 MCH 29.7 pg (25.0-35.0) 09/09/16 14:30 MCHC 32.4 g/dl (31.0-37.0) 09/09/16 14:30 RDW 17.9 % (11.5-14.5) H 09/09/16 14:30 Plt Count 155 10^3/uL (120.0-450.0) 09/09/16 14:30 MPV 9.3 fl (7.0-11.0) 09/09/16 14:30 Gran % 62.7 % (50.0-68.0) 09/08/16 02:20 Lymph % (Auto) 27.7 % (22.0-35.0) 09/08/16 02:20 [place] % (Auto) 8.7 % (1.0-6.0) H 09/08/16 02:20 Eos % (Auto) 0.6 % (1.5-5.0) L 09/08/16 02:20 Baso % (Auto) 0.3 % (0.0-3.0) 09/08/16 02:20 Gran # 6.07 (1.4-6.5) 09/08/16 02:20 Lymph # 2.7 (1.2-3.4) 09/08/16 02:20 Davidson # 0.8 (0.1-0.6) H 09/08/16 02:20 Eos # 0.1 (0.0-0.7) 09/08/16 02:20 Baso # 0.03 K/mm3 (0.0-2.0) 09/08/16 02:20 PT 12.6 Seconds (9.9-11.8) H 09/07/16 15:15 INR 1.17 (0.93-1.08) H 09/07/16 15:15 APTT 30.8 Seconds (23.7-30.8) 09/07/16 15:15 pO2 34 mm/Hg (30-55) 09/07/16 15:15 VBG pH 7.28 (7.32-7.43) L 09/07/16 15:15 VBG pCO2 45.0 (40-60) 09/07/16 15:15 VBG HCO3 21.1 mmol/l (21-28) 09/07/16 15:15 VBG Total CO2 22.5 mmol.L (22-28) 09/07/16 15:15 VBG O2 Sat (Calc) 66.8 % (40-65) H 09/07/16 15:15 VBG Base Excess -5.6 mmol/L (0.0-2.0) L 09/07/16 15:15 VBG Potassium 5.2 mmol/L (3.6-5.2) 09/07/16 15:15 Sodium 137.0 mmol/L (132-148) 09/07/16 15:15 Chloride 112.0 mmol/L (98-107) H 09/07/16 15:15 Glucose 176 mg/dl (65-105) H 09/07/16 15:15 Lactate 1.5 mmol/L (0.7-2.1) 09/07/16 15:15 FiO2 21.0 % 09/07/16 15:15 Sodium 137 mmol/L (132-148) 09/09/16 14:30 Potassium 5.0 mmol/L (3.6-5.0) 09/09/16 14:30 Chloride 110 mmol/L (98-107) H 09/09/16 14:30 Carbon Dioxide 20 mmol/L (21-33) L 09/09/16 14:30 Anion Gap 12 (10-20) 09/09/16 14:30 BUN 28 mg/dL (7-21) H 09/09/16 14:30 Creatinine 1.0 mg/dL (0.5-1.4) 09/09/16 14:30 Est GFR ( Amer) > 60 09/09/16 14:30 Est GFR (Non-Af Amer) 54 09/09/16 14:30 POC Glucose (mg/dL) 118 mg/dL (65-110) H 09/10/16 11:58 Random Glucose 124 mg/dL (70-110) H 09/09/16 14:30 Calcium 8.4 mg/dL (8.4-10.5) 09/09/16 14:30 Magnesium 1.9 mg/dL (1.7-2.2) 09/08/16 02:20 Total Bilirubin 0.7 mg/dL (0.2-1.3) 09/08/16 02:20 AST 31 U/L (15-39) 09/08/16 02:20 ALT 36 U/L (7-56) 09/08/16 02:20 Alkaline Phosphatase 99 U/L (38-133) 09/08/16 02:20 Lactate Dehydrogenase 666 U/L (333-699) 09/07/16 15:15 Total Creatine Kinase 40 U/L (35-230) 09/07/16 15:15 Troponin I < 0.01 ng/mL 09/08/16 02:20 NT-Pro-B Natriuret Pep 4790 pg/mL (0-450) H 09/07/16 15:15 Total Protein 5.8 g/dL (5.8-8.3) 09/08/16 02:20 Albumin 2.8 g/dL (3.0-4.8) L 09/08/16 02:20 Globulin 3.0 gm/dL 09/08/16 02:20 Albumin/Globulin Ratio 0.9 (1.1-1.8) L 09/08/16 02:20 Lipase 94 U/L (23-300) 09/07/16 15:15 Thyroxine (T4) 6.7 ug/dL (5.5-11.0) 09/08/16 02:20 TSH 3rd Generation 1.48 mIU/mL (0.46-4.68) 09/08/16 02:20 Venous Blood Potassium 5.2 mmol/L (3.6-5.2) 09/07/16 15:15 Urine Color Yellow (YELLOW) 09/07/16 17:20 Urine Appearance Clear (CLEAR) 09/07/16 17:20 Urine pH 6.0 (4.7-8.0) 09/07/16 17:20 Ur Specific [place] 1.025 (1.005-1.035) 09/07/16 17:20 Urine Protein Negative mg/dL (<30 mg/dL) 09/07/16 17:20 Urine Glucose (UA) Negative mg/dL (NEGATIVE) 09/07/16 17:20 Urine Ketones Negative mg/dL (NEGATIVE) 09/07/16 17:20 Urine Blood Trace-intact (NEGATIVE) H 09/07/16 17:20 Urine Nitrate Negative (NEGATIVE) 09/07/16 17:20 Urine Bilirubin Negative (NEGATIVE) 09/07/16 17:20 Urine Urobilinogen 0.2 E.U./dL (<1 E.U./dL) 09/07/16 17:20 Ur Leukocyte Esterase Negative Glory/uL (NEGATIVE) 09/07/16 17:20 Urine RBC 0 - 2 /hpf (0-2) 09/07/16 17:20 Urine WBC 0 - 2 /hpf (0-6) 09/07/16 17:20 Urine Bacteria Trace (NEG) 09/07/16 17:20 Stool Occult Blood Positive (NEGATIVE) H 09/08/16 03:00 - Hospital Course Hospital Course: 75 year old female, with past medical history of dementia, diabetes, hypertension, hyperlipidemia, CHF, and Atrial fibrillation on anticoagulation, BIBA with complaint of intermittent burning sensation in her stomach and throat for the past week. She reports having nausea today and one episode of vomiting non-bloody, bilious emesis with undigested food. She also notes for the past month having black stool and an episode of soft/ watery bowel movement which was described as dark today. She denies any overt rectal bleed. She also denies any fever,chills, cough, chest pain, or SOB. She notes some leg swelling for which she elevates her legs While in the ED, she was found to be in Afib with RVR and given Cardizem which improved her heart rate. She has no other complaints at this time. Also in the ED, patient was given pepcid and zofran. Upon admission, patient's home medication were restarted. Cardiology was consulted and recommended to give patient cardizem, atenolol, lasix, verampamil. GI was consulted and recommended to hold eliquis and aspirin, monitor H/H, transfuse as needed, and continue PPI. Patient continue to have A fib and atenolol dose was increased. Patient's urine culture grew E. coli and patient was started on Rocephin. Patient hemoglobin has been stable throughout her hospital course. She ambulated and tolerated diet well. On the day of discharge in the afternoon, patient complained of shortness of breath on exertion. Oxygen via nasal cannula was given. Patient's symptoms improved, sating at high 90s at rest. The discharge plan and follow ups were extensively discussed with the patient and her son. At this time, after discussion of all issues, the patient was deemed medically fit for discharge. - Date & Time of H&P Date of H&P: 09/13/16 Time of H&P: 18:38 Discharge Exam - Head Exam Head Exam: ATRAUMATIC, NORMAL INSPECTION, NORMOCEPHALIC - Eye Exam Eye Exam: EOMI, Normal appearance, PERRL - ENT Exam ENT Exam: Mucous Membranes Moist, Normal Exam - Neck Exam Neck exam: Normal Inspection - Respiratory Exam Respiratory Exam: Clear to PA & Lateral, NORMAL BREATHING PATTERN. absent: Wheezes, Respiratory Distress - Cardiovascular Exam Cardiovascular Exam: REGULAR RHYTHM, RRR, +S1, +S2 - GI/Abdominal Exam GI & Abdominal Exam: Normal Bowel Sounds, Soft. absent: Tenderness - Extremities Exam Extremities exam: normal inspection, pedal pulses present - Back Exam Back exam: NORMAL INSPECTION - Neurological Exam Neurological exam: Alert, Oriented x3 - Psychiatric Exam Psychiatric exam: Normal Affect, Normal Mood - Skin Skin Exam: Dry, Intact, Normal Color, Warm Discharge Plan - Discharge Medications Prescriptions: Verapamil [Calan Tab] 40 mg PO TID #90 tab glyBURIDE [Micronase] 5 mg PO DAILY #14 tab Atenolol [Tenormin] 37.5 mg PO DAILY #30 tablet - Follow Up Plan Condition: FAIR Disposition: HOME/ ROUTINE Instructions: Atrial Fibrillation (DC), Acute Abdominal Pain (DC) Additional Instructions: Patient was instructed to follow up with PMD and cardiology after hospital charge Patient told to stop taking anticoagulants until outpatient follow up Patient was educated on blood glucose and blood pressure monitoring at home with logs Patient will bring the logs to her appointments for medication adjustments Take medications as prescribed Go to the nearest ED if symptoms return or worsen Referrals: Soraya Howe MD [Staff Provider] - Jorge Chaves MD [Primary Care Provider] - <Soraya Lutz MD - Last Filed: 09/18/16 14:23> Provider - Provider Date of Admission: 09/08/16 14:53 Attending physician: Soraya Lutz MD Primary care physician: Jorge Chaves MD Hospital Course - Lab Results Lab Results: Most Recent Lab Values WBC 6.1 10^3/ul (4.5-11.0) D 09/09/16 14:30 RBC 3.54 10^6/uL (3.5-6.1) 09/09/16 14:30 Hgb 10.5 gm/dL (12.0-16.0) L 09/09/16 14:30 Hct 32.4 % (36.0-48.0) L 09/09/16 14:30 MCV 91.5 fL (80.0-105.0) 09/09/16 14:30 MCH 29.7 pg (25.0-35.0) 09/09/16 14:30 MCHC 32.4 g/dl (31.0-37.0) 09/09/16 14:30 RDW 17.9 % (11.5-14.5) H 09/09/16 14:30 Plt Count 155 10^3/uL (120.0-450.0) 09/09/16 14:30 MPV 9.3 fl (7.0-11.0) 09/09/16 14:30 Gran % 62.7 % (50.0-68.0) 09/08/16 02:20 Lymph % (Auto) 27.7 % (22.0-35.0) 09/08/16 02:20 Davidson % (Auto) 8.7 % (1.0-6.0) H 09/08/16 02:20 Eos % (Auto) 0.6 % (1.5-5.0) L 09/08/16 02:20 Baso % (Auto) 0.3 % (0.0-3.0) 09/08/16 02:20 Gran # 6.07 (1.4-6.5) 09/08/16 02:20 Lymph # 2.7 (1.2-3.4) 09/08/16 02:20 Davidson # 0.8 (0.1-0.6) H 09/08/16 02:20 Eos # 0.1 (0.0-0.7) 09/08/16 02:20 Baso # 0.03 K/mm3 (0.0-2.0) 09/08/16 02:20 PT 12.6 Seconds (9.9-11.8) H 09/07/16 15:15 INR 1.17 (0.93-1.08) H 09/07/16 15:15 APTT 30.8 Seconds (23.7-30.8) 09/07/16 15:15 pO2 34 mm/Hg (30-55) 09/07/16 15:15 VBG pH 7.28 (7.32-7.43) L 09/07/16 15:15 VBG pCO2 45.0 (40-60) 09/07/16 15:15 VBG HCO3 21.1 mmol/l (21-28) 09/07/16 15:15 VBG Total CO2 22.5 mmol.L (22-28) 09/07/16 15:15 VBG O2 Sat (Calc) 66.8 % (40-65) H 09/07/16 15:15 VBG Base Excess -5.6 mmol/L (0.0-2.0) L 09/07/16 15:15 VBG Potassium 5.2 mmol/L (3.6-5.2) 09/07/16 15:15 Sodium 137.0 mmol/L (132-148) 09/07/16 15:15 Chloride 112.0 mmol/L (98-107) H 09/07/16 15:15 Glucose 176 mg/dl (65-105) H 09/07/16 15:15 Lactate 1.5 mmol/L (0.7-2.1) 09/07/16 15:15 FiO2 21.0 % 09/07/16 15:15 Sodium 137 mmol/L (132-148) 09/09/16 14:30 Potassium 5.0 mmol/L (3.6-5.0) 09/09/16 14:30 Chloride 110 mmol/L (98-107) H 09/09/16 14:30 Carbon Dioxide 20 mmol/L (21-33) L 09/09/16 14:30 Anion Gap 12 (10-20) 09/09/16 14:30 BUN 28 mg/dL (7-21) H 09/09/16 14:30 Creatinine 1.0 mg/dL (0.5-1.4) 09/09/16 14:30 Est GFR ( Amer) > 60 09/09/16 14:30 Est GFR (Non-Af Amer) 54 09/09/16 14:30 POC Glucose (mg/dL) 91 mg/dL (65-110) 09/10/16 15:59 Random Glucose 124 mg/dL (70-110) H 09/09/16 14:30 Calcium 8.4 mg/dL (8.4-10.5) 09/09/16 14:30 Magnesium 1.9 mg/dL (1.7-2.2) 09/08/16 02:20 Total Bilirubin 0.7 mg/dL (0.2-1.3) 09/08/16 02:20 AST 31 U/L (15-39) 09/08/16 02:20 ALT 36 U/L (7-56) 09/08/16 02:20 Alkaline Phosphatase 99 U/L (38-133) 09/08/16 02:20 Lactate Dehydrogenase 666 U/L (333-699) 09/07/16 15:15 Total Creatine Kinase 40 U/L (35-230) 09/07/16 15:15 Troponin I < 0.01 ng/mL 09/08/16 02:20 NT-Pro-B Natriuret Pep 4790 pg/mL (0-450) H 09/07/16 15:15 Total Protein 5.8 g/dL (5.8-8.3) 09/08/16 02:20 Albumin 2.8 g/dL (3.0-4.8) L 09/08/16 02:20 Globulin 3.0 gm/dL 09/08/16 02:20 Albumin/Globulin Ratio 0.9 (1.1-1.8) L 09/08/16 02:20 Lipase 94 U/L (23-300) 09/07/16 15:15 Thyroxine (T4) 6.7 ug/dL (5.5-11.0) 09/08/16 02:20 TSH 3rd Generation 1.48 mIU/mL (0.46-4.68) 09/08/16 02:20 Venous Blood Potassium 5.2 mmol/L (3.6-5.2) 09/07/16 15:15 Urine Color Yellow (YELLOW) 09/07/16 17:20 Urine Appearance Clear (CLEAR) 09/07/16 17:20 Urine pH 6.0 (4.7-8.0) 09/07/16 17:20 Ur Specific [place] 1.025 (1.005-1.035) 09/07/16 17:20 Urine Protein Negative mg/dL (<30 mg/dL) 09/07/16 17:20 Urine Glucose (UA) Negative mg/dL (NEGATIVE) 09/07/16 17:20 Urine Ketones Negative mg/dL (NEGATIVE) 09/07/16 17:20 Urine Blood Trace-intact (NEGATIVE) H 09/07/16 17:20 Urine Nitrate Negative (NEGATIVE) 09/07/16 17:20 Urine Bilirubin Negative (NEGATIVE) 09/07/16 17:20 Urine Urobilinogen 0.2 E.U./dL (<1 E.U./dL) 09/07/16 17:20 Ur Leukocyte Esterase Negative [place]ory/uL (NEGATIVE) 09/07/16 17:20 Urine RBC 0 - 2 /hpf (0-2) 09/07/16 17:20 Urine WBC 0 - 2 /hpf (0-6) 09/07/16 17:20 Urine Bacteria Trace (NEG) 09/07/16 17:20 Stool Occult Blood Positive (NEGATIVE) H 09/08/16 03:00 Attending/Attestation - Attestation I have personally seen and examined this patient.: Yes I have fully participated in the care of the patient.: Yes I have reviewed all pertinent clinical information, including history, physical exam and plan: Yes Notes (Text): 75yo F with PMHx of dementia, diabetes, hypertension, hyperlipidemia, CHF, Aortic stenosis and Atrial fibrillation on anticoagulation, presents with complaint of dyspepsia, nausea, vomiting, found to be in Afib with RVR.Patient was also giving history of melena.Patient was admitted in the hospital and was treated with IV Cardizem.Patient was also started on IV PPI.Patient was seen in consultation with Cardiology and GI. Patient anticoagulation was held, patient medication for heart rate were adjusted.Patient refused EGD during her stay in the hospitalization.This issue was discussed in detail with her.Her hemoglobin did not drop further, her anticoagulation are on hold at the time of discharge. Prognosis si guarded.
[2016-09-10 17:24] VITALS: BP 132/50; PULSE 80
[2016-09-10 18:34] VITALS: RESP 20; TEMP 98
== END 2016-09-10 22:04 | disposition home or self-care (01) | DRG 138 ==
LOC: ED 13:21 → ERH 17:33 → 2RNO 21:48 → OBSVTOIN 09-08 14:53
PROVIDERS: ADMIT Internal Medicine; ATTEND Internal Medicine
DX: I48.0 Paroxysmal atrial fibrillation (principal); K92.1 Melena; I11.0 Hypertensive heart disease with heart failure; I50.9 Heart failure, unspecified; F03.90 Unspecified dementia, unspecified severity, without behavioral disturbance, psychotic disturbance, mood disturbance, and anxiety; I27.2 Other secondary pulmonary hypertension; E87.5 Hyperkalemia; I08.3 Combined rheumatic disorders of mitral, aortic and tricuspid valves; I48.2 Chronic atrial fibrillation; Z79.01 Long term (current) use of anticoagulants; E11.9 Type 2 diabetes mellitus without complications; I25.10 Atherosclerotic heart disease of native coronary artery without angina pectoris; E78.5 Hyperlipidemia, unspecified; Z95.5 Presence of coronary angioplasty implant and graft; Z79.84 Long term (current) use of oral hypoglycemic drugs; Z79.82 Long term (current) use of aspirin

== ENCOUNTER 2016-09-18 15:09 | Inpatient (IN) | payer OTHER, MEDICARE ==
[2016-09-18 15:34] VITALS: BMI 25.0
--- NOTE | 2016-09-18 15:37 | ED PDOC ---
Arrival/HPI - General Time Seen by Provider: 09/18/16 15:16 Historian: Patient, Spouse - History of Present Illness Narrative History of Present Illness (Text): 09/18/16 15:35 75 year old female with a past medical history that includes dementia, diabetes , hypertension, hyperlipidemia, CHF, and Atrial fibrillation presents to the emergency department with increasing shortness of breath and lower extremity swelling for the past few days. Patient is a poor historian. No fever or other complaints at this time. Time/Duration: < week Symptom Onset: Gradual Symptom Course: Unchanged Modifying Factors (Text): None Associated Symptoms (Text): None Past Medical History - Provider Review Nursing Documentation Reviewed: Yes - Infectious Disease Hx of Infectious Diseases: None - Tetanus Immunization Tetanus Immunization: Unknown - Cardiac Hx Cardiac Disorders: Yes Hx Cardiac Arrhythmia: Yes Hx Circulatory Problems: No Hx Congestive Heart Failure: Yes Hx Heart Murmur: No Hx Heart Transplant: No Hx Hypertension: Yes Hx Internal Defibrillator: No Hx Mitral Valve Prolapse: No Hx Pacemaker: No Hx Peripheral Edema: Yes Hx Peripheral Vascular Disease: No - Pulmonary Hx Respiratory Disorders: Yes Hx Asthma: No Hx Bronchitis: No Hx Chronic Obstructive Pulmonary Disease (COPD): Yes Hx Emphysema: No Hx Pneumonia: No Hx Respiratory Aspiration: No Hx Respiratory Tract Infection: No Hx Sleep Apnea: No Hx Tuberculosis: No - Neurological Hx Neurological Disorder: Yes Hx Alzheimer's Disease: No HX Cerebrovascular Accident: No Hx Dementia: Yes Hx Dizziness: No Hx Meningitis: No Hx Migraine: No Hx Parkinson's Disease: No Hx Seizures: No Hx Transient Ischemic Attacks (TIA): No - HEENT Hx HEENT Disorder: No Hx Blind: No Hx Cataracts: No Hx Deafness: No Hx Difficulty Chewing: No Hx Epistaxis: No Hx Glaucoma: No Hx Macular Degeneration: No - Renal Hx Renal Disorder: No Hx Dialysis: No Hx Kidney Stones: No Hx Neurogenic Bladder: No Hx Pyelonephritis: No Hx Renal Cancer: No Hx Renal Failure: No - Endocrine/Metabolic Hx Endocrine Disorders: Yes Hx Adrenal Cancer: No Hx Diabetes Insipidus: No Hx Diabetes Mellitus Type 1: No Hx Diabetes Mellitus Type 2: Yes Hx Hyperthyroidism: No Hx Hypothyroidism: No Hx Systemic Lupus Erythematosus: No - Hematological/Oncological Hx Blood Disorders: No Hx AIDS: No Hx Anemia: No Hx Cancer: No Hx Chemotherapy: No Hx Cirrhosis: No Hx Hemophilia: No Hx Hepatitis A: No Hx Hepatitis B: No Hx Hepatitis C: No Hx Metastasis: No Hx Shingles: No Hx Sickle Cell Disease: No Hx Unexplained Bleeding: No - Integumentary Hx Dermatological Disorder: No Hx Basal Cell Carcinoma: No Hx Eczema: No Hx Melanoma: No Hx Psoriasis: No Hx Squamous Cell Carcinoma: No - Musculoskeletal/Rheumatological Hx Musculoskeletal Disorders: Yes Hx Arthritis: No Hx Back Pain: No Hx Degenerative Joint Disease: No Hx Falls: Yes Hx Fractures: No Hx Gout: No Hx Herniated Disk: No Hx Myasthenia Gravis: No Hx Osteoarthritis: No Hx Osteomyelitis: No Hx Osteoporosis: No Hx Rhabdomyolysis: No Hx Spinal Stenosis: No Hx Unsteady Gait: Yes - Gastrointestinal Hx Gastrointestinal Disorders: No Hx Colostomy: No Hx Crohn's Disease: No Hx Diverticulitis: No Hx Gall Bladder Disease: No Hx Gastroesophageal Reflux: No Hx Gastrointestinal Ulcer: No Hx Ileostomy: No Hx Liver Failure: No Hx Pancreatitis: No HX Swallowing Problems: No - Genitourinary/Gynecological Hx Genitourinary Disorders: No Hx Hematuria: No Hx Incontinence: No Hx Prostate Problems: No Hx Sexually Transmitted Diseases: No Hx Urinary Tract Infection: No - Psychiatric Hx Psychophysiologic Disorder: No Hx Anxiety: No Hx Bipolar Disorder: No Hx Depression: No Hx Emotional Abuse: No Hx Hallucinations: No Hx Panic Disorder: No Hx Paranoia: No Hx Post Traumatic Stress Disorder: No Hx Psychosis: No Hx Physical Abuse: No Hx Schizophrenia: No Hx Sexual Abuse: No Hx Substance Use: No - Surgical History Hx Amputation: No Hx Appendectomy: No Hx Cardiac Catheterization: Yes Hx Cholecystectomy: No Hx Coronary Stent: Yes (x1) Hx Gastric Bypass Surgery: No Hx Hysterectomy: No Hx Inguinal Hernia Repair: No Hx Joint Replacement: No Hx Kidney Transplant: No Hx Liver Transplant: No Hx Mastectomy: No Hx Musculoskeletal Surgery: No Hx Open Heart Surgery: No Hx Orthopedic Surgery: No Hx Splenectomy: No Hx Valve Replacement: No - Anesthesia Hx Anesthesia: Yes Hx Anesthesia Reactions: No Hx Malignant Hyperthermia: No Family/Social History - Physician Review Nursing Documentation Reviewed: Yes Family/Social History: Unknown Family HX Smoking Status: Never Smoked Hx Alcohol Use: No Hx Substance Use: No Allergies/Home Meds Allergies/Adverse Reactions: Allergies No Known Allergies Allergy (Verified 09/18/16 16:33) Home Medications: Home Meds Medication Instructions Recorded Confirmed Atorvastatin Calcium 10 mg PO DIN 06/23/16 08/09/16 Donepezil HCl [Aricept Odt] 5 mg PO Q6 PRN 06/23/16 08/09/16 Lisinopril [Zestril] 20 mg PO DAILY 06/23/16 08/09/16 Review of Systems - Physician Review All systems were reviewed & negative as marked: Yes - Review of Systems Constitutional: absent: Fevers Respiratory: SOB Cardiovascular: Edema. absent: Chest Pain Gastrointestinal: absent: Abdominal Pain Physical Exam Vital Signs Reviewed: Yes Vital Signs Temp Pulse Resp BP Pulse Ox 09/18/16 17:15 97.8 F 87 16 112/67 99 09/18/16 16:52 74 16 109/66 95 09/18/16 16:24 76 17 94/60 L 97 09/18/16 16:16 126 H 135/76 09/18/16 15:30 97.9 F 140 H 16 135/76 93 L Temperature: Afebrile Blood Pressure: Normal Pulse: Tachycardic Respiratory Rate: Normal Appearance: Positive for: Well-Appearing, Non-Toxic, Comfortable Pain Distress: None Mental Status: Positive for: other (Awake, alert) - Systems Exam Head: Present: Atraumatic, Normocephalic Pupils: Present: PERRL Extroacular Muscles: Present: EOMI Conjunctiva: Present: Normal Mouth: Present: Moist Mucous Membranes Neck: Present: Normal Range of Motion Respiratory/Chest: Present: Good Air Exchange, Other (Crackles bilaterally). No : Respiratory Distress, Accessory Muscle Use Cardiovascular: Present: Normal S1, S2, Irregular Rhythm (Irregularly irregular) , Tachycardic, Other. No: Murmurs Abdomen: Present: Normal Bowel Sounds. No: Tenderness, Distention, Peritoneal Signs Back: Present: Normal Inspection Upper Extremity: Present: Normal Inspection. No: Cyanosis, Edema Lower Extremity: Present: Edema (3+ pitting edema bilaterally) Neurological: Present: GCS=15, CN II-XII Intact, Speech Normal Skin: Present: Warm, Dry, Normal Color. No: Rashes Psychiatric: Present: Alert, Normal Concentration Medical Decision Making ED Course and Treatment: Impression: 75 year old female presents to the emergency department with increasing shortness of breath and lower extremity swelling for the past few days. Differential Diagnosis include but are not limited to: afib with rvr, chf Plan: -- Chest X-ray -- Cardizem -- Labs -- Reassess and disposition Prior Visits: Notes and results from previous visits were reviewed. Patient last seen in ED on 09/07/16 for epigastric pain and admitted for Rapid atrial fibrillation, Vomiting, Abdominal pain, Hyperkalemia Progress Notes: 09/18/16 17:22 rate controled s/p cardizem, lasix ordered. abd soft no ttp. stable for tele - Lab Interpretations Lab Results: 09/18/16 16:16 09/18/16 16:16 Lab Results 09/18/16 16:16: WBC 5.7, RBC 3.35 L, Hgb 9.7 L, Hct 29.9 L, MCV 89.3, MCH 29.0, MCHC 32.4, RDW 17.7 H, Plt Count 264, MPV 9.8, Gran % 61.6, Lymph % (Auto) 24.2 , [place] % (Auto) 12.5 H, Eos % (Auto) 1.0 L, Baso % (Auto) 0.7, Gran # 3.53, Lymph # 1.4, [place] # 0.7 H, Eos # 0.1, Baso # 0.04, Sodium 137, Potassium 4.4, Chloride 108 H, Carbon Dioxide 21, Anion Gap 12, BUN 17, Creatinine 1.0, Est GFR ( Amer) > 60, Est GFR (Non-Af Amer) 54, Random Glucose 114 H, Calcium 8.7, Magnesium 1.7, Total Bilirubin 0.8, AST 39, ALT 36, Alkaline Phosphatase 113, Lactate Dehydrogenase 599, Total Creatine Kinase 30 L, Troponin I 0.03 D, NT-Pro-B Natriuret Pep 5570 H, Total Protein 6.5, Albumin 3.1, Globulin 3.3, Albumin/Globulin Ratio 0.9 L - RAD Interpretation Radiology Orders: 09/18/16 15:33 CHEST PORTABLE [RAD] Stat - EKG Interpretation EKG Interpretation (Text): EKG shows atrial fibrillation at 151 BPM Interpreted by ED Physician: Yes Type: 12 lead EKG - Medication Orders Current Medication Orders: Discontinued Medications Diltiazem HCl (Cardizem) 20 mg IVP STAT STA Stop: 09/18/16 15:35 Last Admin: 09/18/16 16:16 Dose: 20 MG MAR Pulse and Blood Pressure Document 09/18/16 16:16 FJA (Rec: 09/18/16 16:17 FJA [facility] [id number]) Pulse Pulse Rate (60-90 beats/min) 126 Blood Pressure Blood Pressure (100/60-150/90 mm Hg) 135/76 IVP Administration Document 09/18/16 16:16 FJA (Rec: 09/18/16 16:17 FJA [id number]) Charges for Administration # of IVP Administrations 1 - Scribe Statement The provider has reviewed the documentation as recorded by the Polina Guerin Provider Scribe Attestation: All medical record entries made by the Katerinaibbrianne were at my direction and personally dictated by me. I have reviewed the chart and agree that the record accurately reflects my personal performance of the history, physical exam, medical decision making, and the department course for this patient. I have also personally directed, reviewed, and agree with the discharge instructions and disposition. Disposition/Present on Arrival - Present on Arrival Any Indicators Present on Arrival: No History of DVT/PE: No History of Uncontrolled Diabetes: No Urinary Catheter: No History Surgical Site Infection Following: None - Disposition Have Diagnosis and Disposition been Completed?: Yes Diagnosis: Rapid atrial fibrillation, CHF (congestive heart failure) Disposition: HOSPITALIZED Disposition Time: 17:24 Patient Problems: Current Active Problems Problem Status Diagnosed Abdominal pain Acute Hyperkalemia Acute Rapid atrial fibrillation Acute Vomiting Acute Atrial fibrillation with RVR Chronic Dementia Chronic Diabetes Chronic Electrolyte abnormality Resolved Melena Resolved Condition: FAIR Discharge Instructions (ExitCare): Heart Failure (ED)
--- NOTE | 2016-09-18 15:56 | RAD ---
HISTORY: sob COMPARISON: Comparison made with the prior chest radiograph 09/07/2016. FINDINGS: LUNGS: No active pulmonary disease. PLEURA: No significant pleural effusion identified, no pneumothorax apparent. CARDIOVASCULAR: Heart size is mildly enlarged. OSSEOUS STRUCTURES: Minor degenerative changes of both shoulder girdles. Additionally, note is made of a small calcific densities adjacent to the superomedial margin of the acromion near the AC joint and within the soft tissues adjacent to the greater tuberosity right humerus. . Cant abnormalities. VISUALIZED UPPER ABDOMEN: Normal. OTHER FINDINGS: None. IMPRESSION: Mild cardiomegaly. No acute consolidation.
[2016-09-18 16:20] LABS: ADD MANUAL DIFF? NO
[2016-09-18 16:24] LABS: BASO # 0.04 K/mm3 (0.0-2.0); BASO % 0.7 % (0.0-3.0); EOS # 0.1 (0.0-0.7); GRAN # 3.53 (1.4-6.5); GRAN % 61.6 % (50.0-68.0); HEMATOCRIT 29.9 % (36.0-48.0); LYMPH # 1.4 (1.2-3.4); LYMPH % 24.2 % (22.0-35.0); MEAN CELL VOLUME 89.3 fL (80.0-105.0); MEAN CORPUSCULAR HGB CONC 32.4 g/dl (31.0-37.0); MEAN PLATELET VOLUME 9.8 fl (7.0-11.0); MONO # 0.7 (0.1-0.6); MONO % 12.5 % (1.0-6.0); PLATELET COUNT 264 10^3/uL (120.0-450.0); RED CELL DISTRIBUTION WIDTH 17.7 % (11.5-14.5); WHITE BLOOD COUNT 5.7 10^3/ul (4.5-11.0)
[2016-09-18 16:47] LABS: TROPONIN I 0.03 ng/mL
[2016-09-18 17:08] LABS: INR 1.07 (0.93-1.08); PARTIAL THROMBOPLASTIN TIME 27.2 Seconds (23.7-30.8)
[2016-09-18 17:17] LABS: ALB/GLOB RATIO 0.9 (1.1-1.8); ALKALINE PHOSPHATASE 113 U/L (38-133); ALT/SGPT 36 U/L (7-56); AST/SGOT 39 U/L (15-39); BILIRUBIN,TOTAL 0.8 mg/dL (0.2-1.3); BLOOD UREA NITROGEN 17 mg/dL (7-21); CALCIUM 8.7 mg/dL (8.4-10.5); CARBON DIOXIDE 21 mmol/L (21-33); CHLORIDE 108 mmol/L (98-107); GFR AFRICAN-AMERICAN > 60; GLUCOSE,RANDOM 114 mg/dL (70-110); MAGNESIUM 1.7 mg/dL (1.7-2.2); POTASSIUM 4.4 mmol/L (3.6-5.0); SODIUM 137 mmol/L (132-148); TOTAL PROTEIN 6.5 g/dL (5.8-8.3)
[2016-09-18] MEDS ORDERED: DONEPEZIL HCL 5 MG PO PRN (17:49)
[2016-09-18] MEDS ORDERED: Metoprolol 1 mg/ml Inj IVP PRN (17:51)
[2016-09-18] MEDS: Pantoprazole 40 mg EC Tab PO SCH (18:48)
--- NOTE | 2016-09-18 19:19 | CP.PCM.HP ---
<Chip Morel - Last Filed: 09/18/16 19:19> History of Present Illness - History of Present Illness History of Present Illness: CC: Leg swelling/SOB/ abdominal pain HPI: Patient is a 75 y/o F with PMHX of dementia, diabetes, HTN, HLD, CHF, and AFIB who presetned to the hospital with complaint of SOB, and lower extremity swelling for the past few days. She is a poor historian but family at bedside state that over the past few days, the patient has developed worsening bilateral edema and complaining of SOB. She denies any chest pain, palpitations, arm pain, cough, fever, or chills. She also has some abdominal but denies any bowel movement changes, hematachezia, nausea, or vomiting. While in the ED, she was found to be in Afib with RVR and given Cardizem which improved her heart rate. She has no other complaints at this time. PMD: Dr. Chaves Past Med Hx:dementia, diabetes, hypertension, hyperlipidemia, CHF , and Atrial fibrillation on anticoagulation, Past surg hx: 2 cardiac stents Allergies: NKDA Fam hx: unknown Social hx: denies alcohol, tobacco, or drug use Present on Admission - Present on Admission Any Indicators Present on Admission: No Review of Systems - Constitutional Constitutional: absent: Chills, Fever - EENT Eyes: absent: Change in Vision Ears: absent: Decreased Hearing Nose/Mouth/Throat: absent: Dysphagia - Cardiovascular Cardiovascular: Dyspnea. absent: Chest Pain, Claudication, Leg Edema, Leg Ulcers - Respiratory Respiratory: Dyspnea. absent: Cough, Hemoptysis - Gastrointestinal Gastrointestinal: Abdominal Pain. absent: Constipation, Diarrhea, Hematemesis, Hematochezia, Melena, Nausea, Vomiting - Genitourinary Genitourinary: absent: Dysuria - Musculoskeletal Musculoskeletal: absent: Numbness, Tingling - Integumentary Integumentary: absent: Lesions, Rash, Wounds - Neurological Neurological: absent: Dizziness, Headaches, Vertigo, Weakness - Psychiatric Psychiatric: absent: Anxiety, Depression - Endocrine Endocrine: absent: Change in Body Appearance Past Patient History - Infectious Disease Hx of Infectious Diseases: None - Tetanus Immunizations Tetanus Immunization: Unknown - Past Social History Smoking Status: Never Smoked Alcohol: None Drugs: Denies Home Situation {Lives}: With Family - CARDIAC Hx Cardiac Disorders: Yes Hx Cardia Arrhythmia: Yes Hx Circulatory Problems: No Hx Congestive Heart Failure: Yes Hx Heart Murmur: No Hx Heart Transplant: No Hx Hypertension: Yes Hx Internal Defibrillator: No Hx Mitral Valve Prolapse: No Hx Pacemaker: No Hx Peripheral Edema: Yes Hx Peripheral Vascular Disease: No - PULMONARY Hx Respiratory Disorders: Yes Hx Asthma: No Hx Bronchitis: No Hx Chronic Obstructive Pulmonary Disease (COPD): Yes Hx Emphysema: No Hx Pneumonia: No Hx Respiratory Aspiration: No Hx Respiratory Tract Infection: No Hx Sleep Apnea: No Hx Tuberculosis: No - NEUROLOGICAL Hx Neurological Disorder: Yes Hx Alzheimer's Disease: No HX Cerebrovascular Accident: No Hx Dementia: Yes Hx Dizziness: No Hx Meningitis: No Hx Migraine: No Hx Parkinson's Disease: No Hx Seizures: No Hx Transient Ischemic Attacks (TIA): No - HEENT Hx HEENT Problems: No Hx Blind: No Hx Cataracts: No Hx Deafness: No Hx Difficulty Chewing: No Hx Epistaxis: No Hx Glaucoma: No Hx Macular Degeneration: No - RENAL Hx Chronic Kidney Disease: No Hx Dialysis: No Hx Kidney Stones: No Hx Neurogenic Bladder: No Hx Pyelonephritis: No Hx Renal (Kidney) Cancer: No Hx Renal Failure: No - ENDOCRINE/METABOLIC Hx Endocrine Disorders: Yes Hx Adrenal Cancer: No Hx Diabetes Insipidus: No Hx Diabetes Mellitus Type 1: No Hx Diabetes Mellitus Type 2: Yes Hx Hyperthyroidism: No Hx Hypothyroidism: No Hx Systemic Lupus Erythematosus: No - HEMATOLOGICAL/ONCOLOGICAL Hx Blood Disorders: No Hx AIDS: No Hx Anemia: No Hx Cancer: No Hx Chemotherapy: No Hx Cirrhosis: No Hx Hemophilia: No Hx Hepatitis A: No Hx Hepatitis B: No Hx Hepatitis C: No Hx Metastesis: No Hx Shingles: No Hx Sickle Cell Disease: No Hx Unexplained Bleeding: No - INTEGUMENTARY Hx Dermatological Problems: No Hx Basil Cell: No Hx Eczema: No Hx Melanoma: No Hx Psoriasis: No Hx Squamous Cell: No - MUSCULOSKELETAL/RHEUMATOLOGICAL Hx Musculoskeletal Disorders: Yes Hx Arthritis: No Hx Back Pain: No Hx Degenerative Joint Disease: No Hx Falls: Yes Hx Fractures: No Hx Gout: No Hx Herniated Disk: No Hx Myasthenia Gravis: No Hx Osteoarthritis: No Hx Osteomyelitis: No Hx Osteoporosis: No Hx Rhabdomyolysis: No Hx Spinal Stenosis: No Hx Unsteady Gait: Yes - GASTROINTESTINAL Hx Gastrointestinal Disorders: No Hx Colostomy: No Hx Crohn's Disease: No Hx Diverticulitis: No Hx Gall Bladder Disease: No Hx Gastroesophageal Reflux: No Hx Ileostomy: No Hx Liver Failure: No Hx Pancreatitis: No HX Swallowing Problems: No - GENITOURINARY/GYNECOLOGICAL Hx Genitourinary Disorders: No Hx Hematuria: No Hx Incontinence: No Hx Sexually Transmitted Disorders: No Hx Urinary Tract Infection: No - PSYCHIATRIC Hx Psychophysiologic Disorder: No Hx Anxiety: No Hx Bipolar Disorder: No Hx Depression: No Hx Emotional Abuse: No Hx Hallucinations: No Hx Panic Symptoms: No Hx Paranoia: No Hx Post Traumatic Stress Disorder: No Hx Psychosis: No Hx Physical Abuse: No Hx Schizophrenia: No Hx Sexual Abuse: No Hx Substance Use: No - SURGICAL HISTORY Hx Amputation: No Hx Appendectomy: No Hx Cardiac Catheterization: Yes Hx Cholecystectomy: No Hx Coronary Stent: Yes (x1) Hx Gastric Bypass Surgery: No Hx Hysterectomy: No Hx Joint Replacement: No Hx Kidney Transplant: No Hx Liver Transplant: No Hx Mastectomy: No Hx Musculoskeletal Surgery: No Hx Open Heart Surgery: No Hx Orthopedic Surgery: No Hx Splenectomy: No Hx Valve Replacement: No - ANESTHESIA Hx Anesthesia: Yes Hx Anesthesia Reactions: No Hx Malignant Hyperthermia: No Meds Allergies/Adverse Reactions: Allergies Allergy/AdvReac Type Severity Reaction Status Date / Time No Known Allergies Allergy Verified 09/18/16 16:33 Physical Exam - Constitutional Appears: Non-toxic, No Acute Distress - Head Exam Head Exam: ATRAUMATIC, NORMOCEPHALIC - Eye Exam Eye Exam: EOMI, Normal appearance, PERRL Pupil Exam: NORMAL ACCOMODATION, PERRL - ENT Exam ENT Exam: Mucous Membranes Moist. absent: Normal Oropharynx (poor dentition) - Neck Exam Neck exam: Positive for: Normal Inspection. Negative for: Tenderness, Thyromegaly - Respiratory Exam Respiratory Exam: Clear to Auscultation Bilateral, Rhonchi (mild bilaterally), NORMAL BREATHING PATTERN. absent: Rales - Cardiovascular Exam Cardiovascular Exam: Tachycardia, +S1, +S2, Systolic Murmur (systolic murmur) - GI/Abdominal Exam GI & Abdominal Exam: Distended, Soft, Tenderness (RLQ, suprapubic) - Extremities Exam Extremities exam: Positive for: pedal edema (+3 edema bilaterally), pedal pulses present. Negative for: tenderness - Back Exam Back exam: NORMAL INSPECTION. absent: CVA tenderness (L), CVA tenderness (R), rash noted, tenderness - Neurological Exam Neurological exam: Alert, CN II-XII Intact - Psychiatric Exam Psychiatric exam: Normal Affect, Normal Mood - Skin Skin Exam: Dry, Intact, Warm Results - Vital Signs Recent Vital Signs: Last Vital Signs Temp 97.8 F 09/18/16 18:05 Pulse 89 09/18/16 18:05 Resp 16 09/18/16 18:05 BP 124/67 09/18/16 18:10 Pulse Ox 100 09/18/16 18:05 - Labs Result Diagrams: 09/18/16 16:16 09/18/16 16:16 Assessment & Plan - Assessment and Plan (Free Text) Assessment: 75 y/o F with PMHx of dementia, diabetes, hypertension, hyperlipidemia , CHF , and Atrial fibrillation on anticoagulation, presents with complaint of leg edema, SOB, abdominal pain, found to be in afib with RVR which improved with dose of cardizem. Plan: 1) Afib with RVR * Cardioogy consulted, help appreciated * Rate controlled with initial cardizem * Continue home Verapamil and Atenolol * EKG showed Afib with RVR, old septal infarct * Chest x-ray showed no active disease process/ cardiomegally. * elevated BNP at 5570 * Cardiac enzymes wnl f/u repeat * admitted to telemetry floor 2) Abdominal pain * Hgb and hct wnl * F/U repeat CBC * Eliquis held * f/u CT Abdomen and pelvis * F/u UA * Protonix PO BID 3) DM * Hold oral hypoglycemics * start ISS with regular accuchecks 4) Dementia * continue donazepil * F/u UA 5) PPX: * SCD's * Zofran * Protonix Q12H * Tylenol for Fever Assessment and plan discussed with attending physician. <Nelda PASTOR,Soraya - Last Filed: 09/19/16 16:50> Results - Vital Signs Recent Vital Signs: Last Vital Signs Temp 98.1 F 09/19/16 12:00 Pulse 81 09/19/16 14:00 Resp 19 09/19/16 12:00 BP 103/70 09/19/16 12:00 Pulse Ox 100 09/19/16 06:00 - Labs Result Diagrams: 09/19/16 07:10 09/19/16 07:10 Labs: Laboratory Results - last 24 hr 09/18/16 09/18/16 09/19/16 22:52 23:33 07:10 WBC 5.7 RBC 3.04 L Hgb 8.8 L Hct 27.0 L MCV 88.8 MCH 28.9 MCHC 32.6 RDW 17.5 H Plt Count 227 MPV 9.0 Sodium 138 Potassium 4.4 Chloride 109 H Carbon Dioxide 22 Anion Gap 11 BUN 17 Creatinine 1.1 Est GFR ( Amer) 58 Est GFR (Non-Af Amer) 48 POC Glucose (mg/dL) 117 H Random Glucose 85 Calcium 8.5 Troponin I 0.03 09/19/16 09/19/16 09/19/16 07:35 12:02 16:28 WBC RBC Hgb Hct MCV MCH MCHC RDW Plt Count MPV Sodium Potassium Chloride Carbon Dioxide Anion Gap BUN Creatinine Est GFR ( Amer) Est GFR (Non-Af Amer) POC Glucose (mg/dL) 90 138 H 124 H Random Glucose Calcium Troponin I Attending/Attestation - Attestation I have personally seen and examined this patient.: Yes I have fully participated in the care of the patient.: Yes I have reviewed all pertinent clinical information: Yes Notes (Text): Patient was seen and examined with medical aides teacher .Agreed with resident assessment and plan. 75 yrs old F with PMHx of Dementia, diabetes, hypertension, hyperlipidemia, CHF, Aortic stenosis ,Atrial fibrillation was recently admitted in hospital and was treated for Afib with RVR and upper GI bleeding / melena.Patient refused EGD and was discharged home without any anticoagulation, is admitted with worsening leg swelling and dyspnea on exertion, was also in AF with RVR, was given cardizem, heart rate has improved.We will start patient on lasix 20 mg IV bid, will also start on PRN Metoprolol , will continue atenolol and verapamil.We will get cardiology evaluation. Management plan was discussed in detail with patient Education was provided.
--- NOTE | 2016-09-18 21:39 | CARD ---
APPROVED REPORT EKG Measurement Heart [id number] <Conclusion> Atrial fibrillation with rapid ventricular response Nonspecific ST and T wave abnormality, probably digitalis effect Abnormal ECG
--- NOTE | 2016-09-18 23:26 | CT ---
EXAM: CT Abdomen and Pelvis Without Intravenous Contrast CLINICAL HISTORY: 75 years old, female; Pain; Abdominal pain; Localized; Left lower quadrant (llq); Additional info: Left lower abdominal pain TECHNIQUE: Axial computed tomography images of the abdomen and pelvis without intravenous contrast. This CT exam was performed using one or more of the following dose reduction techniques: automated exposure control, adjustment of the mA and/or kV according to patient size, and/or use of iterative reconstruction technique. Coronal and sagittal reformatted images were created and reviewed. COMPARISON: No relevant prior studies available. FINDINGS: Lower thorax: Moderate bilateral pleural effusions (right greater than left). Significant coronary artery calcifications are also noted. Calcification of the aortic valve is also present. ABDOMEN: Liver: No acute findings Gallbladder and bile ducts: The gallbladder is minimally distended, without calcified stones. No intra-extrahepatic biliary ductal dilation. Pancreas: The pancreas is atrophic. Spleen: No acute findings. Adrenals: No acute findings. Kidneys and ureters: No obstructing stones. No hydronephrosis. Moderate anasarca is identified. PELVIS: Bladder: No acute findings. Reproductive: No acute findings. Appendix: The appendix is not visualized. ABDOMEN and PELVIS: Stomach and bowel: Scattered diverticulosis with diffuse mural thickening in the rectosigmoid colon. Peritoneum: Moderate ascites. Lymph nodes: Limited evaluation without intravenous contrast. Vasculature: No aortic aneurysm. Dense calcified atherosclerotic disease is noted. Bones: No acute fracture. IMPRESSION: Moderate bilateral pleural effusions. Moderate ascites. Moderate anasarca. Scattered colonic diverticulosis with diffuse mural thickening in the rectosigmoid colon, cannot exclude diverticulitis, for which clinical correlation is needed.
[2016-09-18] MEDS: Insulin Lispro (humaLOG) LOW Coverage SC SCH (23:38)
[2016-09-19 07:29] LABS: MEAN CELL VOLUME 88.8 fL (80.0-105.0); MEAN CORPUSCULAR HEMOGLOBIN 28.9 pg (25.0-35.0); MEAN CORPUSCULAR HGB CONC 32.6 g/dl (31.0-37.0); RED CELL DISTRIBUTION WIDTH 17.5 % (11.5-14.5); WHITE BLOOD COUNT 5.7 10^3/ul (4.5-11.0)
[2016-09-19 07:58] LABS: CALCIUM 8.5 mg/dL (8.4-10.5); POTASSIUM 4.4 mmol/L (3.6-5.0)
[2016-09-19] MEDS: Insulin Lispro (humaLOG) LOW Coverage SC SCH ×4 (08:12→21:33)
[2016-09-19] MEDS: Pantoprazole 40 mg EC Tab PO SCH (10:30)
[2016-09-19] MEDS ORDERED: Digoxin 500 mcg/2ml (0.5 mg/2ml) Inj IVP ONE ×2 (11:25→17:00)
[2016-09-19 12:33] VITALS: PULSE 103
--- NOTE | 2016-09-19 14:19 | CON ---
DATE: 09/19/2016 SERVICE: Cardiology. REASON FOR CONSULTATION AND FOLLOWUP: Aortic stenosis, coronary artery disease, admitted with leg sw elling and abdominal pain. BRIEF CLINICAL HISTORY: This is a 75-year-old Tajik speaking female with a past medical history si gnificant for chronic atrial fibrillation, status post PTCA ____ [address] Lutz, ____ recat heterization on 04/18/2016, shows approximately in-stent restenosis LAD. Medical treatment recommend ed. RCA is a nondominant, 90% stenosis. Preserved LV function. Catheterization done by Dr. Kwan Byers. History of chronic atrial fibrillation, was recently discharged from [facility] on Eliquis. Prior to that, the patient was not placed on anticoagulation because of a GI bleed last adm ission. Discussed with Dr. Tanner, not to put Coumadin because patient is dropping H and H. Hist ory of gastric ulcer in the past. The patient is supposed to follow with Dr. Kwan Byers upon d ischarge at [facility] (Formerly [facility]). Last time discharged on 09/10/2016. Eliquis was held because of droppin g H and H at that time discussed with Dr. Tanner, who was attending. Last admission Eliquis was h eld because the patient was dropping H and H. Prior to that, patient had also a history of drop in h emoglobin to 6.1 at [facility] and was held at [facility], off Eliquis. A dmitted yesterday with complaint of abdominal pain and leg swelling. PAST MEDICAL HISTORY: Significant for chronic atrial fibrillation, hypertension, dementia, diabetes, history of cardiac catheterization and coronary stent as above, being followed by Dr. Kwan Briceño ms, history of gastrointestinal bleed, history of chronic atrial fibrillation. Previous cardiac workup as follows: The patient had a cardiac catheterization 04/18/2015 that showed mild disease in LAD 40% stenosis, circumflex essentially free of significant disease, a dominant ves ernie, RCA is nondominant 90% stenosis. Medical treatment recommended. Preserved left ventricular fun ction. Last echo 06/24/2016 shows concentric LVH, severe valvular aortic stenosis, moderate aortic re gurgitation, moderate mitral regurgitation, moderate pulmonary hypertension, RV systolic pressure 55, aortic valve area 0.5 cm, consistent with severe aortic stenosis. Echo dated 06/24/2016. SOCIAL HISTORY: Denies smoking. Denies any history of alcohol abuse. ALLERGIES: No known drug allergy. CURRENT MEDICATIONS: On glyburide, verapamil 3 times a day, Januvia 100 mg daily, lisinopril 20 mg d aily, Aricept 5 mg daily, atorvastatin 10, atenolol 25 mg daily, aspirin 81 mg a day, as mentioned ap ixaban, that is Eliquis, was on hold on last admission, last discharge dated 09/09/2016. The patient h as no more Eliquis. REVIEW OF SYSTEMS: As per HPI. PHYSICAL EXAMINATION: VITAL SIGNS: Temperature afebrile, heart rate 92, blood pressure 115/64. HEENT: PERRLA. Extraocular muscles intact. NECK: Supple. No carotid bruits. No thyromegaly. CHEST: Clear to auscultation. HEART: S1, S2 regular. ABDOMEN: Soft. EXTREMITIES: Clubbing and cyanosis negative. EKG showed AFib with rate of 115. LABORATORY DATA: WBC ____, hemoglobin 8.8, hematocrit 27.0, platelet count 227. Chemistry shows sod ium 130, potassium ____, chloride 109, carbon dioxide ____, anion gap of 11, BUN 70, creatinine 1.1. Troponin 0.03 negative. IMPRESSION: No evidence of acute coronary syndrome. Troponin x 2 negative. Dropping H and H, anemi a, history of coronary artery disease, status post stent, history of repeat catheterization in 2014, patent stent in LAD, mild disease in LAD, no significant disease in circumflex, nondominant RCA 90% s tenosis, preserved left ventricular function, critical aortic stenosis, valve area 0.7 cm2, moderate pulmonary hypertension, moderate aortic regurgitation, moderate mitral regurgitation, severe aortic s tenosis by echo dated 06/24/2016, off Eliquis, chronic atrial fibrillation because of GI bleed at one point. At [facility], patient dropped hemoglobin to 6.1. Restarted here in [place], Eliquis, but patient is again dropping H and H, so last time Eliquis was discontinued 09/09/2016, upon discharge, patient's repeat decreased hemoglobin, complained of abdominal pain. Denies any chest pa in. No evidence of acute coronary syndrome. RECOMMENDATION: Continue off Eliquis. Continue Cardizem. Continue verapamil 40 mg 3 times a day. Continue gentle diuretics. Continue atenolol. Will give 1 dose of digoxin to control the heart rate . We will follow with you. If the patient needs endoscopy, patient is cleared from cardiology point of view to go for endoscopy, though patient will be high risk because of underlying comorbidities in cluding severe aortic stenosis, but risk/benefit ratio is in favor of the patient to go for endoscopy ____ cauterization. The patient is dropping H and H. Though it would be high risk ____ underlying comorbidity. Will follow with you. Thank you, Dr. Marks, for providing the opportunity in taking care of this patient. Soraya Howe MD cc: [id number] TT: 09/19/2016 12:06:56 Confirmation # [id number] Dictation # [id number] rn 09/19/2016 13:18:14
--- NOTE | 2016-09-19 16:16 | CP.PCM.PN ---
Addendum entered and electronically signed by Chip Morel DO 09/19/16 16:27: Gi consulted, help appreciated If repeat H&H below 8 will transfuse 2 units. Original Note: <Chip Morel - Last Filed: 09/19/16 16:11> Subjective - Date & Time of Evaluation Date of Evaluation: 09/19/16 Time of Evaluation: 07:45 - Subjective Subjective: Dr. Morel PGY 1 Hospitalist note Patient seen and evaluated at bedside. She reports her breathing has improved as has the swelling in her legs. She does note that she has some abdominal discomfort and gas. She says her last bowel movement was brown without overt blood. She denies any nausea, vomiting, hematemesis, chest pain, SOB, fever, or chills. Per nursing, no adverse events over night. Objective - Vital Signs/Intake and Output Vital Signs (last 24 hours): Temp Pulse Resp BP Pulse Ox 98.1 F 81 19 103/70 100 09/19/16 12:00 09/19/16 14:00 09/19/16 12:00 09/19/16 12:00 09/19/16 06:00 Intake and Output: 09/19/16 09/19/16 06:59 18:59 Intake Total 0 0 Balance 0 0 - Medications Medications: Current Medications Atenolol (Tenormin) 37.5 mg PO DAILY [facility] Last Admin: 09/19/16 10:31 Dose: 37.5 mg Atorvastatin Calcium (Lipitor) 10 mg PO DIN [facility] Last Admin: 09/18/16 18:47 Dose: 10 mg Digoxin (Lanoxin) 0.25 mg IVP ONCE ONE Stop: 09/19/16 17:01 Ceftriaxone Sodium (Rocephin 1 Gram Ivpb) 100 mls @ 100 mls/hr IVPB DAILY [facility] PRN Reason: Protocol Insulin Human Lispro (Humalog Low) 0 units SC ACHS [facility] PRN Reason: Protocol Last Admin: 09/19/16 12:19 Dose: Not Given Lisinopril (Zestril) 20 mg PO DAILY [facility] Last Admin: 09/19/16 10:30 Dose: 20 mg Metoprolol Tartrate (Lopressor) 5 mg IVP Q6 PRN PRN Reason: Heart rate Non-Formulary Medication (Donepezil Hcl [Aricept Odt]) 5 mg PO Q6 PRN PRN Reason: Anxiety Ondansetron HCl (Zofran Inj) 4 mg IM Q6H PRN PRN Reason: Dizziness Last Admin: 09/19/16 12:30 Dose: 4 mg Pantoprazole Sodium (Protonix Inj) 40 mg IVP Q12 SEA Verapamil HCl (Calan Tab) 40 mg PO TID SE[facility] Last Admin: 09/19/16 14:29 Dose: Not Given - Labs Labs: 09/19/16 07:10 09/19/16 07:10 PT 11.6 Seconds (9.9-11.8) 09/18/16 16:16 INR 1.07 (0.93-1.08) 09/18/16 16:16 APTT 27.2 Seconds (23.7-30.8) 09/18/16 16:16 - Constitutional Appears: Non-toxic, No Acute Distress - Head Exam Head Exam: ATRAUMATIC, NORMOCEPHALIC - Eye Exam Eye Exam: EOMI, Normal appearance, PERRL Pupil Exam: NORMAL ACCOMODATION, PERRL - ENT Exam ENT Exam: Mucous Membranes Moist. absent: Normal Oropharynx (poor dentition) - Neck Exam Neck Exam: Normal Inspection - Respiratory Exam Respiratory Exam: Clear to Ausculation Bilateral, NORMAL BREATHING PATTERN. absent: Rales, Rhonchi, Wheezes - Cardiovascular Exam Cardiovascular Exam: REGULAR RHYTHM, +S1, +S2, Murmur (systolic). absent: Gallop, Rubs - GI/Abdominal Exam GI & Abdominal Exam: Soft, Tenderness (epigastric region), Normal Bowel Sounds. absent: Distended, Guarding, Rigid - Extremities Exam Extremities Exam: Pedal Edema. absent: Tenderness - Back Exam Back Exam: NORMAL INSPECTION. absent: rash noted, tenderness - Neurological Exam Neurological Exam: Alert, Awake, CN II-XII Intact, Oriented x3 - Psychiatric Exam Psychiatric exam: Normal Affect, Normal Mood - Skin Skin Exam: Dry, Intact, Normal Color, Warm Assessment and Plan - Assessment and Plan (Free Text) Assessment: 75 y/o F with PMHx of dementia, diabetes, hypertension, hyperlipidemia , CHF , and Atrial fibrillation on anticoagulation, presents with complaint of leg edema, SOB, abdominal pain, found to be in afib with RVR which improved with dose of cardizem. Plan: 1) Afib with RVR * Cardiology consulted, help appreciated * Rate controlled with initial cardizem * Continue home Verapamil and Atenolol * EKG showed Afib with RVR, old septal infarct * Chest x-ray showed no active disease process/ cardiomegally. * elevated BNP at 5570 * Cardiac enzymes wnl f/u repeat * admitted to telemetry floor 2) Abdominal pain * Hgb and hct wnl * repeat hgb and hct mildy decreased, f/u repeat in PM * Eliquis held * CT Abdomen and pelvis showed moderate bilateral pleural effusions, ascites, anasarca, scattered colonic diverticulosis [see full report] * F/u UA and urine culture * patient recently discharged with UTI- start rocephin IVPB * Protonix PO BID 3) DM * Hold oral hypoglycemics * start ISS with regular accuchecks 4) Dementia * continue donazepil * F/u UA 5) PPX: * SCD's * Zofran * Protonix Q12H * Tylenol for Fever Assessment and plan discussed with attending physician. <Nelda PASTOR,[facility] - Last Filed: 09/19/16 16:57> Objective - Vital Signs/Intake and Output Vital Signs (last 24 hours): Temp Pulse Resp BP Pulse Ox 98.1 F 81 19 103/70 100 09/19/16 12:00 09/19/16 14:00 09/19/16 12:00 09/19/16 12:00 09/19/16 06:00 Intake and Output: 09/19/16 09/19/16 06:59 18:59 Intake Total 0 0 Balance 0 0 - Medications Medications: Current Medications Atenolol (Tenormin) 37.5 mg PO DAILY [facility] Last Admin: 09/19/16 10:31 Dose: 37.5 mg Atorvastatin Calcium (Lipitor) 10 mg PO DIN [facility] Last Admin: 09/18/16 18:47 Dose: 10 mg Digoxin (Lanoxin) 0.25 mg IVP ONCE ONE Stop: 09/19/16 17:01 Ceftriaxone Sodium (Rocephin 1 Gram Ivpb) 100 mls @ 100 mls/hr IVPB DAILY [facility] PRN Reason: Protocol Last Admin: 09/19/16 16:23 Dose: 100 mls/hr Insulin Human Lispro (Humalog Low) 0 units SC ACHS [facility] PRN Reason: Protocol Last Admin: 09/19/16 16:29 Dose: Not Given Lisinopril (Zestril) 20 mg PO DAILY [facility] Last Admin: 09/19/16 10:30 Dose: 20 mg Metoprolol Tartrate (Lopressor) 5 mg IVP Q6 PRN PRN Reason: Heart rate Non-Formulary Medication (Donepezil Hcl [Aricept Odt]) 5 mg PO Q6 PRN PRN Reason: Anxiety Ondansetron HCl (Zofran Inj) 4 mg IM Q6H PRN PRN Reason: Dizziness Last Admin: 09/19/16 12:30 Dose: 4 mg Pantoprazole Sodium (Protonix Inj) 40 mg IVP Q12 SEA Verapamil HCl (Calan Tab) 40 mg PO TID [facility] Last Admin: 09/19/16 14:29 Dose: Not Given - Labs Labs: 09/19/16 07:10 09/19/16 07:10 PT 11.6 Seconds (9.9-11.8) 09/18/16 16:16 INR 1.07 (0.93-1.08) 09/18/16 16:16 APTT 27.2 Seconds (23.7-30.8) 09/18/16 16:16 Attending/Attestation - Attestation I have personally seen and examined this patient.: Yes I have fully participated in the care of the patient.: Yes I have reviewed all pertinent clinical information, including history, physical exam and plan: Yes Notes (Text): Patient was seen and examined with medical science liaison .History was taken with the hep of resource conservation specialist.Agreed with resident assessment and plan. Patient heart rate s better controlled today.Leg swelling is improved.Hemoglobin has dropped, denies any melena, there is no hemetemesis, patient was refusing EGD before but now she is agrreable, we will switch to IV Protonix, will monitor hemoglobin and hematocrit.We will also get GI evaluation. Patient also has E coli UTI, we will start patient on IV Ceftriaxone.CT scan finding showed possible colitis, will add flagyl. Management plan was discussed in detail with patient Education was provided. 09/19/16 16:57
[2016-09-19] MEDS: cefTRIAXone 1 gm 100 ML IVPB SCH (16:23)
[2016-09-19 18:30] LABS: HEMATOCRIT 27.7 % (36.0-48.0); MEAN CELL VOLUME 88.5 fL (80.0-105.0); MEAN CORPUSCULAR HEMOGLOBIN 29.4 pg (25.0-35.0); MEAN CORPUSCULAR HGB CONC 33.2 g/dl (31.0-37.0); MEAN PLATELET VOLUME 8.7 fl (7.0-11.0); RED CELL DISTRIBUTION WIDTH 17.5 % (11.5-14.5); WHITE BLOOD COUNT 6.5 10^3/ul (4.5-11.0)
[2016-09-19] MEDS: metroNIDAZOLE IV 500 mg/100 ml 100 ML IVPB SCH (22:41)
[2016-09-20] MEDS: metroNIDAZOLE IV 500 mg/100 ml 100 ML IVPB SCH ×3 (05:20→22:45)
[2016-09-20] MEDS: Insulin Lispro (humaLOG) LOW Coverage SC SCH ×4 (08:01→22:46)
[2016-09-20 08:19] LABS: ADD MANUAL DIFF? NO
[2016-09-20 08:24] LABS: BASO # 0.03 K/mm3 (0.0-2.0); BASO % 0.6 % (0.0-3.0); EOS # 0.2 (0.0-0.7); EOS % 3.6 % (1.5-5.0); GRAN # 2.79 (1.4-6.5); GRAN % 52.4 % (50.0-68.0); LYMPH # 1.6 (1.2-3.4); LYMPH % 30.1 % (22.0-35.0); MEAN CELL VOLUME 88.9 fL (80.0-105.0); MEAN CORPUSCULAR HEMOGLOBIN 28.6 pg (25.0-35.0); MEAN CORPUSCULAR HGB CONC 32.1 g/dl (31.0-37.0); MEAN PLATELET VOLUME 9.8 fl (7.0-11.0); MONO # 0.7 (0.1-0.6); MONO % 13.3 % (1.0-6.0); PLATELET COUNT 267 10^3/uL (120.0-450.0); RED CELL DISTRIBUTION WIDTH 17.5 % (11.5-14.5); WHITE BLOOD COUNT 5.3 10^3/ul (4.5-11.0)
[2016-09-20 08:43] LABS: ALB/GLOB RATIO 0.9 (1.1-1.8); BILIRUBIN,TOTAL 0.4 mg/dL (0.2-1.3); CALCIUM 8.3 mg/dL (8.4-10.5); POTASSIUM 3.9 mmol/L (3.6-5.0); TOTAL PROTEIN 5.5 g/dL (5.8-8.3)
--- NOTE | 2016-09-20 08:51 | CON ---
DATE: 09/20/2016 I examined the patient this morning. She is a 75-year-old female, does not speak Khmer. Past medical history extensive including dementia, diabetes, hypertension, CHF, AFib, elevated lipids, CHF. Presents with increasing shortness of breath, abdominal swelling, swelling of the extremities bilaterally. The symptoms have been going on for roughly about 5 or 7 days. Apparently, the patient denies any rectal bleeding or hematemesis. Apparently, in the Emergency Room, she was found to be in AFib with rapid ventricular rate, given Cardizem, which improved her heart rate. The patient is denying any kind of bleeding. Does indicate some degree of abdominal pressure and swelling. PHYSICAL EXAMINATION: VITAL SIGNS: I reviewed this patient's vital signs. HEENT: Not performed. LUNGS: Decreased breath sounds bilaterally. Some crackles at the base on the left side. HEART: Irregular rhythm. Systolic murmur. ABDOMEN: Mildly distended. She has some mild discomfort in the periumbilical area. I reviewed this patient's laboratory data, which includes on admission H and H of 9.8/30 with an MCV of 89. INR is within normal limits on admission. She had a B-natriuretic peptide on admission of 5570. Troponin 0.03. Evaluation of the abdominal and pelvic CT scan significant for bilateral pleural effusions which are consistent with the physical exam, coronary artery calcifications. There are no biliary issues noted on the CT. There is scattered diverticulosis noted in the rectosigmoid. There is evidence of anasarca as well as ascites. OVERALL ASSESSMENT: This is a 75-year-old female, , admitted with atrial fibrillation with rapid ventricular rate and decompensated heart failure. The patient apparently had a percutaneous transluminal coronary angioplasty about 3 years ago. She apparently had a gastrointestinal bleed in previous admission due to a history of a gastric ulcer. I reviewed the consult of Dr. Howe regarding the anticoagulant and some degree of dropping H and H. Note that according to his note, she does have pulmonary hypertension with aortic regurgitation, mitral regurgitation as well as severe aortic stenosis. I reviewed his issue regarding going to endoscopy, whether this is in the patient's best interest. I have discussed this with the primary care doctor. Again, the patient is not bleeding at the current time point. Note that at the current time, the patient is on pantoprazole 40 b.i.d. Given the patient's labile cardiac status, I do not feel the patient is stable enough to go for endoscopy today. Mo Ziegler DO, PhD cc: [id number] TT: 09/20/2016 08:51:10 Confirmation # [id number] Dictation # [id number] MTDKim
--- NOTE | 2016-09-20 10:29 | PN ---
DATE: 09/20/2016 REASON FOR CONSULTATION AND FOLLOWUP: Abdominal pain, history of coronary artery disease, history of PTCA, history of aortic stenosis, complaining of dizziness. BRIEF CLINICAL HISTORY: This is a 75-year-old Liberian speaking female with a past medical history si gnificant for chronic atrial fibrillation, status post percutaneous transluminal coronary angioplasty [address] Kwan Byers. Last catheterization showed patent stent in LAD. Admitted wit h abdominal pain. Denies any chest pain, shortness of breath, any palpitation. The patient has hist ory of chronic atrial fibrillation. Started Eliquis but patient had a drop in hemoglobin and hematoc rit. Also history of significant drop in hemoglobin and hematocrit in the past, dropped hemoglobin t o 6 in [facility]. So currently the patient is off anticoagulation because of drop i n hemoglobin and hematocrit and complaining of abdominal pain. PHYSICAL EXAMINATION: VITAL SIGNS: Temperature afebrile, heart rate 72, blood pressure 94/51. HEENT: PERRLA. Extraocular muscles intact. NECK: Supple. No carotid bruits. No thyromegaly. CHEST: Clear to auscultation. HEART: S1, S2 regular. ABDOMEN: Soft. EXTREMITIES: Clubbing and cyanosis negative. BLOOD WORKUP: WBC 5.____, hemoglobin 9, hematocrit 28.0, platelet count 267. Chemistry shows sodium 139, potassium 3.7, chloride 109, hematocrit 22, anion gap of 12, BUN 21, creatinine 1.3. Total pro tein 5.____, albumin 2.6, albumin/globulin ratio 0.9. IMPRESSION: Protein-calorie malnutrition that was not present on admission, anemia, history of gastr ointestinal bleed, paroxysmal atrial fibrillation; coronary artery disease, status post percutaneous transluminal coronary angioplasty in the past, status post last catheterization patent stent in left anterior descending, mild in-stent restenosis; dominant circumflex essentially free of significant di sease; right coronary artery, nondominant, 90% stenosis. Catheterization was done by Dr. Kwan wong, being followed by Dr. Kwan Byers. History of aortic stenosis. RECOMMENDATION: Will discontinue telemetry. Continue GI workup. When the patient is stable, can be discharged home. Continue verapamil with holding parameter. We will discontinue lisinopril because the pressure is on the low side. Will discontinue telemetry. Thank you, Dr. Aurora Marks, for providing the opportunity in taking care of this patient. Will follow the lab in the morning. Will discontinue lisinopril because of low blood pressure. Will follow with you. If the patient remains stable and GI workup is done, consider discharge planning. Soraya Howe MD cc: [id number] TT: 09/20/2016 10:29:13 Confirmation # [id number] Dictation # [id number] mn
[2016-09-20] MEDS ORDERED: Phenylephrine 10 mg/ml Inj ONE (10:37)
[2016-09-20] MEDS ORDERED: Propofol 10 mg/ml Inj (20 ML) ONE (10:39)
[2016-09-20] MEDS ORDERED: Etomidate 20 mg/10ml Inj IV ONE (10:39)
[2016-09-20] MEDS ORDERED: Lidocaine 2% Inj (20ml) ONE (10:39)
[2016-09-20] MEDS ORDERED: Lactated Ringer's 1,000 ML IV SCH (11:00)
[2016-09-20] MEDS: cefTRIAXone 1 gm 100 ML IVPB SCH (12:38)
--- NOTE | 2016-09-20 17:26 | CP.PCM.PN ---
<Chip Morel - Last Filed: 09/20/16 17:37> Subjective - Date & Time of Evaluation Date of Evaluation: 09/20/16 Time of Evaluation: 13:30 - Subjective Subjective: Dr. Morel PGY 1 Hospitalist Note Patient seen and evaluated at bedside with family present. She recently had returned from having EGD performed and was eating lunch. Her son was concerned due to her lack of appetite. The patient complained of some abdominal distension but no tenderness. She described it as feeling "gassy". She denies any chest pain, SOB, nausea, vomiting, or bowel movement. She does states he feels tired. Her son reports noticing the swelling in her legs has improved. She is awaiting to see physical therapy. No adverse events reported by nursing. Objective - Vital Signs/Intake and Output Vital Signs (last 24 hours): Temp Pulse Resp BP Pulse Ox 97.4 F L 70 14 126/59 L 99 09/20/16 12:00 09/20/16 12:39 09/20/16 12:00 09/20/16 12:39 09/20/16 12:00 Intake and Output: 09/20/16 09/20/16 06:59 18:59 Intake Total 320 360 Output Total 300 Balance 320 60 - Medications Medications: Current Medications Atenolol (Tenormin) 37.5 mg PO DAILY [facility] Last Admin: 09/20/16 12:39 Dose: 37.5 mg Atorvastatin Calcium (Lipitor) 10 mg PO DIN [facility] Last Admin: 09/19/16 18:36 Dose: 10 mg Ceftriaxone Sodium (Rocephin 1 Gram Ivpb) 100 mls @ 100 mls/hr IVPB DAILY [facility] PRN Reason: Protocol Last Admin: 09/20/16 12:38 Dose: 100 mls/hr Metronidazole (Flagyl) 100 mls @ 100 mls/hr IVPB Q8 [facility] PRN Reason: Protocol Last Admin: 09/20/16 14:04 Dose: 100 mls/hr Insulin Human Lispro (Humalog Low) 0 units SC ACHS [facility] PRN Reason: Protocol Last Admin: 09/20/16 16:23 Dose: 1 units Metoprolol Tartrate (Lopressor) 5 mg IVP Q6 PRN PRN Reason: Heart rate Non-Formulary Medication (Donepezil Hcl [Aricept Odt]) 5 mg PO Q6 PRN PRN Reason: Anxiety Ondansetron HCl (Zofran Inj) 4 mg IM Q6H PRN PRN Reason: Dizziness Last Admin: 09/19/16 12:30 Dose: 4 mg Pantoprazole Sodium (Protonix Inj) 40 mg IVP Q12 SEA Last Admin: 09/20/16 12:38 Dose: 40 mg Verapamil HCl (Calan Tab) 40 mg PO TID [facility] Last Admin: 09/20/16 13:11 Dose: 40 mg - Labs Labs: 09/20/16 07:00 09/20/16 07:00 PT 11.6 Seconds (9.9-11.8) 09/18/16 16:16 INR 1.07 (0.93-1.08) 09/18/16 16:16 APTT 27.2 Seconds (23.7-30.8) 09/18/16 16:16 - Constitutional Appears: Non-toxic, No Acute Distress - Head Exam Head Exam: ATRAUMATIC, NORMOCEPHALIC - Eye Exam Eye Exam: EOMI, Normal appearance, PERRL Pupil Exam: NORMAL ACCOMODATION, PERRL - ENT Exam ENT Exam: Mucous Membranes Moist. absent: Normal Oropharynx (poor dentition) - Neck Exam Neck Exam: Normal Inspection - Respiratory Exam Respiratory Exam: Clear to Ausculation Bilateral, Rhonchi (mild in bilateral lower lobes), NORMAL BREATHING PATTERN. absent: Rales, Wheezes - Cardiovascular Exam Cardiovascular Exam: Irregular Rhythm (irregularly irregular), +S1, +S2, Murmur. absent: Gallop, Rubs - GI/Abdominal Exam GI & Abdominal Exam: Soft, Normal Bowel Sounds. absent: Distended, Guarding, Tenderness - Extremities Exam Extremities Exam: Pedal Edema (+2 edema bilatera lower ext). absent: Tenderness - Neurological Exam Neurological Exam: Alert, Awake, CN II-XII Intact, Oriented x3 - Psychiatric Exam Psychiatric exam: Normal Affect, Normal Mood - Skin Skin Exam: Dry, Intact, Normal Color, Warm Assessment and Plan - Assessment and Plan (Free Text) Assessment: 75 y/o F with PMHx of dementia, diabetes, hypertension, hyperlipidemia , CHF , and Atrial fibrillation on anticoagulation, presents with complaint of leg edema, SOB, abdominal pain, found to be in afib with RVR which improved with dose of cardizem. EGD performed by GI this morning. Plan: 1) Afib with RVR * Cardiology consulted, help appreciated * Rate controlled with initial cardizem * Continue home Verapamil and Atenolol * DC Lisinopril due to hypotension * EKG showed Afib with RVR, old septal infarct * Chest x-ray showed no active disease process/ cardiomegally. * elevated BNP at 5570 * Cardiac enzymes negative * DC telemetry as per cardiology 2) Abdominal pain * Hgb and hct stable * GI consulted, help appreciated * EGD performed showing medium sized hiatal hernia, gastrtitis/duodenitis, cardiac ulcer, large bulbar ulcer [see full report] * Eliquis held * CT Abdomen and pelvis showed moderate bilateral pleural effusions, ascites, anasarca, scattered colonic diverticulosis [see full report] * Continue Flagyl * F/u UA and urine culture * patient recently discharged with UTI- continue rocephin IVPB * Protonix 40mg BID 3) DM * Hold oral hypoglycemics * start ISS with regular accuchecks 4) Dementia * continue donazepil * F/u UA 5) PPX: * SCD's * Zofran * Protonix Q12H * Tylenol for Fever Assessment and plan discussed with attending physician. <Nelda PASTOR,[facility] - Last Filed: 09/23/16 10:05> Objective - Vital Signs/Intake and Output Vital Signs (last 24 hours): Temp Pulse Resp BP Pulse Ox 98.2 F 88 20 110/66 100 09/22/16 07:30 09/22/16 13:58 09/22/16 07:30 09/22/16 13:58 09/22/16 07:30 - Labs Labs: 09/21/16 09:00 09/21/16 09:00 PT 11.6 Seconds (9.9-11.8) 09/18/16 16:16 INR 1.07 (0.93-1.08) 09/18/16 16:16 APTT 27.2 Seconds (23.7-30.8) 09/18/16 16:16 Attending/Attestation - Attestation I have personally seen and examined this patient.: Yes I have fully participated in the care of the patient.: Yes I have reviewed all pertinent clinical information, including history, physical exam and plan: Yes Notes (Text): Patient was seen and examined with medical billing associate .Agreed with resident assessment and plan. 75 F with PMH of Aortic stenosis, AF , anticoagulation recently discontinued due to GI bleeding, was admitted with leg swelling, CHF exacerbation and AF with RVR Patient heart rate is better controlled.Leg swelling is improving. Endoscopy done today showed big Duodenal ulcer and gastric ulcer,discuss with GI , patient is high risk for anticoagulation, Protonix can be switched to oral. Patient also has UTI, questionable colitis, improved, PT evaluation has been requested, Management plan was discussed in detail with patient Education was provided.
--- NOTE | 2016-09-20 17:59 | CARD ---
APPROVED REPORT EKG Measurement Heart [id number] <Conclusion> Atrial fibrillation Low voltage QRS Cannot rule out Anterior infarct, age undetermined Abnormal ECG
[2016-09-21] MEDS: metroNIDAZOLE IV 500 mg/100 ml 100 ML IVPB SCH ×3 (06:04→22:03)
--- NOTE | 2016-09-21 07:56 | PN ---
DATE: 09/21/2016 I examined the patient endoscopically yesterday. She is a 75-year-old female admitted with complaints of decompensated heart failure, rapid AFib, anasarca, ascites, etc. The patient was evaluated for reasons of refractory anemia especially after initiation of anticoagulation. As indicated in the report included on patient's chart, the endoscopy is significant for cardia ulcers, esophageal hernia, esophagitis, antral ulcer, multiple ulcerations in the duodenum. This is more than enough to account for the drop in H and H after initiation of anticoagulation which had included Eliquis in the past. PLAN: I reviewed this case with Dr. Soraya Lutz yesterday. Plan will be high dose PPI therapy at least for a period of 6-8 weeks minimum. A repeat endoscopy might be worthwhile at some time point. I advised Dr. Lutz to consider risk/benefit ratio of restarting at least some degree of anticoagulation given the degree of ulceration in the bowel, which right now I suggested high dose PPIs. Two samples were taken from the antrum and body to check status of H. pylori. I will sign off the case today. Mo Ziegler DO, PhD cc: [id number] TT: 09/21/2016 07:55:55 Confirmation # [id number] Dictation # [id number] [id number]
[2016-09-21] MEDS: Insulin Lispro (humaLOG) LOW Coverage SC SCH ×4 (08:26→22:04)
[2016-09-21 09:14] LABS: ADD MANUAL DIFF? NO
[2016-09-21 09:17] LABS: BASO # 0.04 K/mm3 (0.0-2.0); BASO % 0.7 % (0.0-3.0); EOS # 0.2 (0.0-0.7); EOS % 3.4 % (1.5-5.0); GRAN # 3.76 (1.4-6.5); GRAN % 63.1 % (50.0-68.0); HEMATOCRIT 32.2 % (36.0-48.0); LYMPH # 1.2 (1.2-3.4); LYMPH % 19.7 % (22.0-35.0); MEAN CORPUSCULAR HGB CONC 32.9 g/dl (31.0-37.0); MEAN PLATELET VOLUME 9.2 fl (7.0-11.0); MONO # 0.8 (0.1-0.6); MONO % 13.1 % (1.0-6.0); PLATELET COUNT 283 10^3/uL (120.0-450.0); RED CELL DISTRIBUTION WIDTH 17.2 % (11.5-14.5)
[2016-09-21 09:27] LABS: ALB/GLOB RATIO 0.9 (1.1-1.8); BILIRUBIN,TOTAL 0.5 mg/dL (0.2-1.3); CALCIUM 8.4 mg/dL (8.4-10.5)
[2016-09-21] MEDS: cefTRIAXone 1 gm 100 ML IVPB SCH (09:44)
--- NOTE | 2016-09-21 13:49 | PN ---
DATE: 09/21/2016 The patient in room 362, bed 2. REASON FOR CONSULTATION AND FOLLOWUP: Abdominal pain, history of coronary artery disease, history of PTCA, history of aortic stenosis. The patient was complaining of dizziness. HISTORY OF PRESENT ILLNESS: A 75-year-old Swedish speaking female with past medical history signific ant for chronic atrial fibrillation, status post angioplasty [address] Kwan Byers. La st catheterization showed patent stent in LAD. Admitted with abdominal pain. Denies chest pain, rosy rtness of breath, palpitation. The patient was put on Eliquis for atrial fibrillation, but she had a very severe drop in hemoglobin and hematocrit. Also, patient had in the past the same thing with El uis with significant drop in hemoglobin and hematocrit, which dropped to 6 in [facility] enter so patient is off anticoagulation. The patient had endoscopy which showed gastric ulcers, duod enal ulcers, esophagitis, duodenitis, gastritis, hiatal hernia. The patient lying flat in bed withou t any cardiac symptoms. PHYSICAL EXAMINATION: VITAL SIGNS: Blood pressure 128/70, respirations 20, pulse 85, temperature 97.7. HEAD: Normocephalic. EYES: Pupils normal. Conjunctivae slightly pale. NECK: JVP low. Carotid equal. THORAX: AP diameter normal. LUNGS: Clear. CARDIOVASCULAR: S1, S2. ABDOMEN: Soft, no tenderness, no organomegaly. Bowel sounds normal. EXTREMITIES: No clubbing, no cyanosis. LABORATORY DATA: WBC 6.0, hemoglobin 10.6, hematocrit 32.2, platelet 283. Sodium 142, potassium 4.0 , BUN 18, creatinine 1.1. AST 30, ALT 31. Total protein 6.0, albumin 2.8. DIAGNOSES: Anemia, history of gastrointestinal bleed, paroxysmal atrial fibrillation, coronary arter y disease, status post transluminal coronary angioplasty in the past. Last catheterization, patent s tents in left anterior descending, mild in-stent restenosis, dominant circumflex essentially free of significant disease, right coronary artery nondominant 90% stenosis. This catheterization was done b y Dr. Kwan Byesr. She follows with him. The patient also has history of aortic stenosis, liam dariana ulcers, duodenal ulcers, esophagitis, gastritis, duodenitis, hiatal hernia. PLAN: Continue Calan 40 mg t.i.d., Lipitor 10 mg p.o. daily, Protonix 40 daily, atenolol 37.5 mg p.o . daily. Soraya Ibarra MD cc: [id number] TT: 09/21/2016 13:48:37 Confirmation # [id number] Dictation # [id number]
--- NOTE | 2016-09-21 16:42 | CP.PCM.PN ---
<Chip Morel - Last Filed: 09/21/16 17:05> Subjective - Date & Time of Evaluation Date of Evaluation: 09/21/16 Time of Evaluation: 07:30 - Subjective Subjective: Dr. Morel PGY1 Hospitalist Note Patient seen and evaluated at bedside. She states her abdominal pain has improved as well as her leg swelling. She denies any fever,chills, nausea, vomiting, chest pain, SOB, or cough. Family was spoken with and patient not able to be discharged as nobody will be there today to get her or help her get settled home as well as arranging home service. Objective - Vital Signs/Intake and Output Vital Signs (last 24 hours): Temp Pulse Resp BP Pulse Ox 97.7 F 86 20 130/70 96 09/21/16 07:30 09/21/16 13:22 09/21/16 07:30 09/21/16 13:22 09/21/16 07:30 Intake and Output: 09/21/16 09/21/16 06:59 18:59 Intake Total 300 0 Balance 300 0 - Medications Medications: Current Medications Atenolol (Tenormin) 37.5 mg PO DAILY [facility] Last Admin: 09/21/16 09:44 Dose: 37.5 mg Atorvastatin Calcium (Lipitor) 10 mg PO DIN [facility] Last Admin: 09/20/16 17:44 Dose: 10 mg Ceftriaxone Sodium (Rocephin 1 Gram Ivpb) 100 mls @ 100 mls/hr IVPB DAILY [facility] PRN Reason: Protocol Last Admin: 09/21/16 09:44 Dose: 100 mls/hr Metronidazole (Flagyl) 100 mls @ 100 mls/hr IVPB Q8 [facility] PRN Reason: Protocol Last Admin: 09/21/16 13:22 Dose: 100 mls/hr Insulin Human Lispro (Humalog Low) 0 units SC ACHS [facility] PRN Reason: Protocol Last Admin: 09/21/16 11:17 Dose: 1 units Metoprolol Tartrate (Lopressor) 5 mg IVP Q6 PRN PRN Reason: Heart rate Non-Formulary Medication (Donepezil Hcl [Aricept Odt]) 5 mg PO Q6 PRN PRN Reason: Anxiety Ondansetron HCl (Zofran Inj) 4 mg IM Q6H PRN PRN Reason: Dizziness Last Admin: 09/21/16 13:23 Dose: 4 mg Pantoprazole Sodium (Protonix Inj) 40 mg IVP Q12 [facility] Last Admin: 09/21/16 09:44 Dose: 40 mg Verapamil HCl (Calan Tab) 40 mg PO TID [facility] Last Admin: 09/21/16 13:22 Dose: 40 mg - Labs Labs: 09/21/16 09:00 09/21/16 09:00 PT 11.6 Seconds (9.9-11.8) 09/18/16 16:16 INR 1.07 (0.93-1.08) 09/18/16 16:16 APTT 27.2 Seconds (23.7-30.8) 09/18/16 16:16 - Constitutional Appears: Non-toxic, No Acute Distress - Head Exam Head Exam: ATRAUMATIC, NORMOCEPHALIC - Eye Exam Eye Exam: EOMI, Normal appearance, PERRL Pupil Exam: NORMAL ACCOMODATION, PERRL - ENT Exam ENT Exam: Mucous Membranes Moist. absent: Normal Oropharynx (poor dentition) - Respiratory Exam Respiratory Exam: Clear to Ausculation Bilateral, NORMAL BREATHING PATTERN. absent: Rales, Rhonchi, Wheezes - Cardiovascular Exam Cardiovascular Exam: Irregular Rhythm, +S1, +S2, Murmur (systolic) - GI/Abdominal Exam GI & Abdominal Exam: Soft, Normal Bowel Sounds. absent: Firm, Guarding, Tenderness - Extremities Exam Extremities Exam: Pedal Edema. absent: Tenderness - Back Exam Back Exam: NORMAL INSPECTION. absent: rash noted, tenderness - Neurological Exam Neurological Exam: Alert, Awake, CN II-XII Intact, Oriented x3 - Psychiatric Exam Psychiatric exam: Normal Affect, Normal Mood - Skin Skin Exam: Dry, Intact, Normal Color, Warm Assessment and Plan - Assessment and Plan (Free Text) Assessment: 75 y/o F with PMHx of dementia, diabetes, hypertension, hyperlipidemia , CHF , and Atrial fibrillation on anticoagulation, presents with complaint of leg edema, SOB, abdominal pain, found to be in afib with RVR which improved with dose of cardizem. EGD performed by GI showing medium sized hiatal hernia, gastrtitis/duodenitis, cardiac ulcer, large bulbar ulcer. Patient awaiting discharge when family and services ready. Plan: 1) Afib with RVR * Cardiology consulted, help appreciated * Rate controlled with initial cardizem * Continue home Verapamil and Atenolol * DC Lisinopril due to hypotension * EKG showed Afib with RVR, old septal infarct * Chest x-ray showed no active disease process/ cardiomegally. * elevated BNP at 5570 * Cardiac enzymes negative * DC telemetry as per cardiology 2) Abdominal pain * Hgb and hct stable * GI consulted, help appreciated * EGD performed showing medium sized hiatal hernia, gastrtitis/duodenitis, cardiac ulcer, large bulbar ulcer [see full report] * Eliquis held * CT Abdomen and pelvis showed moderate bilateral pleural effusions, ascites, anasarca, scattered colonic diverticulosis [see full report] * Continue Flagyl * patient recently discharged with UTI- continue rocephin IVPB * Protonix 40mg BID 3) DM * Hold oral hypoglycemics * start ISS with regular accuchecks 4) Dementia * continue donazepil * monitor for mental status changes 5) PPX: * SCD's * Zofran * Protonix Q12H * Tylenol for Fever Assessment and plan discussed with attending physician. <Padmini Roy - Last Filed: 09/21/16 17:35> Objective - Vital Signs/Intake and Output Vital Signs (last 24 hours): Temp Pulse Resp BP Pulse Ox 97.7 F 80 20 130/66 96 09/21/16 07:30 09/21/16 17:14 09/21/16 07:30 09/21/16 17:14 09/21/16 07:30 Intake and Output: 09/21/16 09/21/16 06:59 18:59 Intake Total 300 0 Balance 300 0 - Medications Medications: Current Medications Atenolol (Tenormin) 37.5 mg PO DAILY [facility] Last Admin: 09/21/16 09:44 Dose: 37.5 mg Atorvastatin Calcium (Lipitor) 10 mg PO DIN [facility] Last Admin: 09/21/16 17:15 Dose: 10 mg Ceftriaxone Sodium (Rocephin 1 Gram Ivpb) 100 mls @ 100 mls/hr IVPB DAILY [facility] PRN Reason: Protocol Last Admin: 09/21/16 09:44 Dose: 100 mls/hr Metronidazole (Flagyl) 100 mls @ 100 mls/hr IVPB Q8 [facility] PRN Reason: Protocol Last Admin: 09/21/16 13:22 Dose: 100 mls/hr Insulin Human Lispro (Humalog Low) 0 units SC ACHS [facility] PRN Reason: Protocol Last Admin: 09/21/16 17:15 Dose: Not Given Metoprolol Tartrate (Lopressor) 5 mg IVP Q6 PRN PRN Reason: Heart rate Non-Formulary Medication (Donepezil Hcl [Aricept Odt]) 5 mg PO Q6 PRN PRN Reason: Anxiety Ondansetron HCl (Zofran Inj) 4 mg IM Q6H PRN PRN Reason: Dizziness Last Admin: 09/21/16 13:23 Dose: 4 mg Pantoprazole Sodium (Protonix Inj) 40 mg IVP Q12 [facility] Last Admin: 09/21/16 09:44 Dose: 40 mg Verapamil HCl (Calan Tab) 40 mg PO TID [facility] Last Admin: 09/21/16 17:14 Dose: 40 mg - Labs Labs: 09/21/16 09:00 09/21/16 09:00 PT 11.6 Seconds (9.9-11.8) 09/18/16 16:16 INR 1.07 (0.93-1.08) 09/18/16 16:16 APTT 27.2 Seconds (23.7-30.8) 09/18/16 16:16 Attending/Attestation - Attestation I have personally seen and examined this patient.: Yes I have fully participated in the care of the patient.: Yes I have reviewed all pertinent clinical information, including history, physical exam and plan: Yes Notes (Text): 09/21/16 17:31 75 year old female with past medical history of dementia, diabetes, hypertension and afib who presented with Afib with RVR and abdominal pain. She was seen by cardiology and her medications were adjusted. Her heart rate has been better controlled. She was seen by GI and underwent EGD yesterday which showed medium sized hiatal hernia, gastrtitis/duodenitis, cardiac ulcer, and large bulbar ulcer. She is on high dose PPI as per GI. Case was discussed with cardiology who recommends to hold anticoagulation given recurrent anemia and ulcerations. Will discuss with son and case loader operator / social media senior associate for d/c planning likely tomorrow. Padmini Roy MD Hospitalist.
[2016-09-22] MEDS: metroNIDAZOLE IV 500 mg/100 ml 100 ML IVPB SCH ×2 (05:47→13:59)
[2016-09-22] MEDS: Insulin Lispro (humaLOG) LOW Coverage SC SCH ×2 (08:22→11:19)
[2016-09-22 08:34] VITALS: RESP 20; TEMP 98.2; O2SAT 100
[2016-09-22] MEDS ORDERED: Pantoprazole 40 mg EC Tab PO SCH (10:00)
[2016-09-22] MEDS: cefTRIAXone 1 gm 100 ML IVPB SCH (10:06)
--- NOTE | 2016-09-22 11:29 | CP.PCM.DIS ---
<Chip Morel - Last Filed: 09/22/16 15:46> Provider - Provider Date of Admission: 09/18/16 17:24 Attending physician: Padmini Roy MD Primary care physician: Jorge Chaves MD Consults: Dr. Soraya Ziegler Time Spent in preparation of Discharge (in minutes): 35 Hospital Course - Lab Results Lab Results: Most Recent Lab Values WBC 6.0 10^3/ul (4.5-11.0) 09/21/16 09:00 RBC 3.66 10^6/uL (3.5-6.1) 09/21/16 09:00 Hgb 10.6 gm/dL (12.0-16.0) L 09/21/16 09:00 Hct 32.2 % (36.0-48.0) L 09/21/16 09:00 MCV 88.0 fL (80.0-105.0) 09/21/16 09:00 MCH 29.0 pg (25.0-35.0) 09/21/16 09:00 MCHC 32.9 g/dl (31.0-37.0) 09/21/16 09:00 RDW 17.2 % (11.5-14.5) H 09/21/16 09:00 Plt Count 283 10^3/uL (120.0-450.0) 09/21/16 09:00 MPV 9.2 fl (7.0-11.0) 09/21/16 09:00 Gran % 63.1 % (50.0-68.0) 09/21/16 09:00 Lymph % (Auto) 19.7 % (22.0-35.0) L 09/21/16 09:00 [place] % (Auto) 13.1 % (1.0-6.0) H 09/21/16 09:00 Eos % (Auto) 3.4 % (1.5-5.0) 09/21/16 09:00 Baso % (Auto) 0.7 % (0.0-3.0) 09/21/16 09:00 Gran # 3.76 (1.4-6.5) 09/21/16 09:00 Lymph # 1.2 (1.2-3.4) 09/21/16 09:00 [place] # 0.8 (0.1-0.6) H 09/21/16 09:00 Eos # 0.2 (0.0-0.7) 09/21/16 09:00 Baso # 0.04 K/mm3 (0.0-2.0) 09/21/16 09:00 PT 11.6 Seconds (9.9-11.8) 09/18/16 16:16 INR 1.07 (0.93-1.08) 09/18/16 16:16 APTT 27.2 Seconds (23.7-30.8) 09/18/16 16:16 Sodium 142 mmol/L (132-148) 09/21/16 09:00 Potassium 4.0 mmol/L (3.6-5.0) 09/21/16 09:00 Chloride 109 mmol/L (95-110) 09/21/16 09:00 Carbon Dioxide 22 mmol/L (21-33) 09/21/16 09:00 Anion Gap 15 (10-20) 09/21/16 09:00 BUN 18 mg/dL (7-21) 09/21/16 09:00 Creatinine 1.1 mg/dL (0.5-1.4) 09/21/16 09:00 Est GFR ( Amer) 58 09/21/16 09:00 Est GFR (Non-Af Amer) 48 09/21/16 09:00 POC Glucose (mg/dL) 185 mg/dL (65-110) H 09/21/16 11:08 Random Glucose 107 mg/dL (70-110) 09/21/16 09:00 Calcium 8.4 mg/dL (8.4-10.5) 09/21/16 09:00 Magnesium 1.7 mg/dL (1.7-2.2) 09/18/16 16:16 Total Bilirubin 0.5 mg/dL (0.2-1.3) 09/21/16 09:00 AST 30 U/L (15-39) 09/21/16 09:00 ALT 31 U/L (7-56) 09/21/16 09:00 Alkaline Phosphatase 111 U/L (38-133) 09/21/16 09:00 Lactate Dehydrogenase 599 U/L (333-699) 09/18/16 16:16 Total Creatine Kinase 30 U/L (35-230) L 09/18/16 16:16 Troponin I 0.03 ng/mL 09/18/16 23:33 NT-Pro-B Natriuret Pep 5570 pg/mL (0-450) H 09/18/16 16:16 Total Protein 6.0 g/dL (5.8-8.3) 09/21/16 09:00 Albumin 2.8 g/dL (3.0-4.8) L 09/21/16 09:00 Globulin 3.2 gm/dL 09/21/16 09:00 Albumin/Globulin Ratio 0.9 (1.1-1.8) L 09/21/16 09:00 - Hospital Course Hospital Course: HPI: Patient is a 75 y/o F with PMHX of dementia, diabetes, HTN, HLD, CHF, and AFIB who presented to the hospital with complaint of SOB, and lower extremity swelling for the past few days. She is a poor historian but family at bedside state that over the past few days, the patient has developed worsening bilateral edema and complaining of SOB. She denies any chest pain, palpitations, arm pain, cough, fever, or chills. She also has some abdominal but denies any bowel movement changes, hematachezia, nausea, or vomiting. While in the ED, she was found to be in Afib with RVR and given Cardizem which improved her heart rate. She has no other complaints at this time. Patient is a 75 y/o F who presented to the hospital with complaint of abdominal pain, SOB, and lower extremity edema. She was found to be in Afib with RVR, given cardizem which brought her rate down. Cardiology was consulted who said continue her home verapamil and atenolol. A chest xray was performed showing no active disease. Due to her abdominal pain and history of GI bleed, GI was consulted. A CT of her abdomen and pelvis showed moderate bilateral pleural effusions, ascites, anasarca, scattered colonic diverticulosis. Her eliquis was held and GI performed an EGD which showed a medium sized hiatal hernia, gastrtitis/duodenitis, cardiac ulcer, large bulbar ulcer. She was started on protonix 40 mg BID. After discussing her anticoagulation with cardiology, it was recommended the Eliquis be held due to recurrent GI bleeds. Risks and benefits discussed with patient and son who agreed. Per son and social work, patient had home services. Patient was determined medically stable for discharge home as she has home services. She and son were advised: follow up with your creping machine operator, material manager, and primary care physician within a week; follow up with the material manager for biopsy results; continue taking Calan, Lipitor, and Atenolol but stop taking Eliquis until cleared by GI and cardiology as you may re-develop GI bleed; start taking Protonix 40mg twice a day; refrain from any alcohol, tobacco, or drug use; follow a peptic ulcer diet as found in handout; and if your condition worsens or new symptoms arise such as chest pain, palpitations, black stool, or blood in stool, please return to the emergency room. Both verbalized understanding and patient was discharged home. This is a brief summary of the patient's stay at this facility, for more detail , see patient's full chart. - Date & Time of H&P Date of H&P: 09/18/16 Time of H&P: 19:17 Discharge Exam - Head Exam Head Exam: ATRAUMATIC, NORMOCEPHALIC - Eye Exam Eye Exam: EOMI, Normal appearance, PERRL Pupil Exam: NORMAL ACCOMODATION, PERRL - ENT Exam ENT Exam: Mucous Membranes Moist. absent: Normal Oropharynx (poor dentition) - Respiratory Exam Respiratory Exam: NORMAL BREATHING PATTERN. absent: Rales, Rhonchi, Wheezes - Cardiovascular Exam Cardiovascular Exam: Irregular Rhythm, +S1, +S2, Systolic Murmur (+2 left sternal border). absent: Gallop, Rubs - GI/Abdominal Exam GI & Abdominal Exam: Normal Bowel Sounds, Soft. absent: Distended, Firm, Tenderness - Back Exam Back exam: NORMAL INSPECTION. absent: rash noted, tenderness - Neurological Exam Neurological exam: Alert, CN II-XII Intact, Oriented x3 - Psychiatric Exam Psychiatric exam: Flat Affect, Normal Mood - Skin Skin Exam: Dry, Intact, Normal Color, Warm Discharge Plan - Discharge Medications Prescriptions: Atorvastatin Calcium 10 mg PO DIN #30 tablet Verapamil [Calan Tab] 40 mg PO TID #90 tab Pantoprazole [Protonix EC Tab] 40 mg PO Q12 #60 ect Atenolol [Tenormin] 37.5 mg PO DAILY #30 tablet - Follow Up Plan Condition: GOOD Disposition: HOME/ ROUTINE Instructions: Heart Failure (DC), Heart Failure (GEN), Pacemaker (DC), Pacemaker (GEN), Pulmonary Edema (DC), Pulmonary Edema (GEN), Peptic Ulcer (DC) , Diet for Ulcers and Gastritis (GEN), Acute Abdominal Pain (DC), Acute Abdominal Pain (GEN), Ascites (DC), Ascites (GEN) Additional Instructions: You are medically stable for discharge. Please follow up with your creping machine operator, material manager, and primary care physician within a week. Follow up with the material manager for biopsy results. Continue taking Calan, Lipitor, and Atenolol but stop taking Eliquis until cleared by GI and cardiology as you may re-develop GI bleed. Please start taking Protonix twice a day. Refrain from any alcohol, tobacco, or drug use. Please follow a peptic ulcer diet as found in handout. If your condition worsens or new symptoms arise such as chest pain, palpitations , black stool, or blood in stool, please return to the emergency room. Referrals: Soraya Howe MD [Staff Provider] - Jorge Chaves MD [Primary Care Provider] - Follow up with primary Mo Ziegler DO [Staff Provider] - <Padmini Roy - Last Filed: 09/22/16 16:07> Provider - Provider Date of Admission: 09/18/16 17:24 Attending physician: Padmini Roy MD Primary care physician: Jorge Chvaes MD Hospital Course - Lab Results Lab Results: Most Recent Lab Values WBC 6.0 10^3/ul (4.5-11.0) 09/21/16 09:00 RBC 3.66 10^6/uL (3.5-6.1) 09/21/16 09:00 Hgb 10.6 gm/dL (12.0-16.0) L 09/21/16 09:00 Hct 32.2 % (36.0-48.0) L 09/21/16 09:00 MCV 88.0 fL (80.0-105.0) 09/21/16 09:00 MCH 29.0 pg (25.0-35.0) 09/21/16 09:00 MCHC 32.9 g/dl (31.0-37.0) 09/21/16 09:00 RDW 17.2 % (11.5-14.5) H 09/21/16 09:00 Plt Count 283 10^3/uL (120.0-450.0) 09/21/16 09:00 MPV 9.2 fl (7.0-11.0) 09/21/16 09:00 Gran % 63.1 % (50.0-68.0) 09/21/16 09:00 Lymph % (Auto) 19.7 % (22.0-35.0) L 09/21/16 09:00 [place] % (Auto) 13.1 % (1.0-6.0) H 09/21/16 09:00 Eos % (Auto) 3.4 % (1.5-5.0) 09/21/16 09:00 Baso % (Auto) 0.7 % (0.0-3.0) 09/21/16 09:00 Gran # 3.76 (1.4-6.5) 09/21/16 09:00 Lymph # 1.2 (1.2-3.4) 09/21/16 09:00 [place] # 0.8 (0.1-0.6) H 09/21/16 09:00 Eos # 0.2 (0.0-0.7) 09/21/16 09:00 Baso # 0.04 K/mm3 (0.0-2.0) 09/21/16 09:00 PT 11.6 Seconds (9.9-11.8) 09/18/16 16:16 INR 1.07 (0.93-1.08) 09/18/16 16:16 APTT 27.2 Seconds (23.7-30.8) 09/18/16 16:16 Sodium 142 mmol/L (132-148) 09/21/16 09:00 Potassium 4.0 mmol/L (3.6-5.0) 09/21/16 09:00 Chloride 109 mmol/L (95-110) 09/21/16 09:00 Carbon Dioxide 22 mmol/L (21-33) 09/21/16 09:00 Anion Gap 15 (10-20) 09/21/16 09:00 BUN 18 mg/dL (7-21) 09/21/16 09:00 Creatinine 1.1 mg/dL (0.5-1.4) 09/21/16 09:00 Est GFR ( Amer) 58 09/21/16 09:00 Est GFR (Non-Af Amer) 48 09/21/16 09:00 POC Glucose (mg/dL) 185 mg/dL (65-110) H 09/21/16 11:08 Random Glucose 107 mg/dL (70-110) 09/21/16 09:00 Calcium 8.4 mg/dL (8.4-10.5) 09/21/16 09:00 Magnesium 1.7 mg/dL (1.7-2.2) 09/18/16 16:16 Total Bilirubin 0.5 mg/dL (0.2-1.3) 09/21/16 09:00 AST 30 U/L (15-39) 09/21/16 09:00 ALT 31 U/L (7-56) 09/21/16 09:00 Alkaline Phosphatase 111 U/L (38-133) 09/21/16 09:00 Lactate Dehydrogenase 599 U/L (333-699) 09/18/16 16:16 Total Creatine Kinase 30 U/L (35-230) L 09/18/16 16:16 Troponin I 0.03 ng/mL 09/18/16 23:33 NT-Pro-B Natriuret Pep 5570 pg/mL (0-450) H 09/18/16 16:16 Total Protein 6.0 g/dL (5.8-8.3) 09/21/16 09:00 Albumin 2.8 g/dL (3.0-4.8) L 09/21/16 09:00 Globulin 3.2 gm/dL 09/21/16 09:00 Albumin/Globulin Ratio 0.9 (1.1-1.8) L 09/21/16 09:00 Attending/Attestation - Attestation I have personally seen and examined this patient.: Yes I have fully participated in the care of the patient.: Yes I have reviewed all pertinent clinical information, including history, physical exam and plan: Yes Notes (Text): 09/22/16 16:05 75 year old female with past medical history of dementia, diabetes, hypertension and afib who presented with Afib with RVR and abdominal pain. She was seen by cardiology and her medications were adjusted. Her heart rate has been better controlled. She was seen by GI and underwent EGD which showed medium sized hiatal hernia, gastrtitis/duodenitis, cardiac ulcer, and large bulbar ulcer. Case was discussed with Dr. Ziegler who recommended high dose PPI. Case was discussed with Dr. Howe who recommended to hold anticoagulation given recurrent anemia and ulcerations. Patient will be discharged home today to follow up with pmd. Follow up with cardiology and GI. Padmini Roy MD Hospitalist.
--- NOTE | 2016-09-22 12:24 | PN ---
DATE: 09/22/2016 The patient in room 362, bed 2. REASON FOR CONSULTATION AND FOLLOWUP: Abdominal pain, history of coronary artery disease, history of PTCA. History of aortic stenosis. HISTORY OF PRESENT ILLNESS: A 75-year-old Albanian-speaking female with past medical history signific ant for chronic atrial fibrillation, status post angioplasty [address] Kwan Byers. La st catheterization showed patent stent in LAD, admitted with abdominal pain. Denies chest pain, shor tness of breath, or palpitation. The patient was put on Eliquis for atrial fibrillation, but she had a very severe drop in hemoglobin and hematocrit. The patient has also past history that, when she w as on Eliquis, significant drop in hemoglobin and hematocrit which had dropped to 6 of hemoglobin in [facility] and the patient was taken off anticoagulation. The patient's endoscopy sh owed gastric ulcer, duodenal ulcers, esophagitis, duodenitis, gastritis, hiatus hernia. Now, the pat ient is asymptomatic. Denies any chest pain, shortness of breath, or palpitation. The patient is ly ing flat in bed without any shortness of breath. PHYSICAL EXAMINATION: VITAL SIGNS: Blood pressure is 104/64, respirations 20, pulse 96, temperature 98.2. HEAD: Normocephalic. EYES: Pupils normal. Conjunctivae slightly pale. NECK: JVP low. Carotid equal. THORAX: AP diameter normal. LUNGS: Clear. CARDIOVASCULAR: S1, S2, ejection systolic murmur, no rub. ABDOMEN: Soft, nontender, no organomegaly. Bowel sounds normal. EXTREMITIES: No clubbing, no cyanosis. LABORATORY DATA: WBC 6.0, hemoglobin 10.6, hematocrit 32.2, platelets 243. Sodium 142, potassium 4. 0, BUN 18, creatinine 1.1, random glucose 107. AST, ALT normal. Total protein 6.0, albumin 2.8. DIAGNOSES: Anemia, history of gastrointestinal bleeding, paroxysmal atrial fibrillation, coronary ar desmond disease, status post coronary angioplasty. On last catheterization, there was patent stent in th e left anterior descending coronary artery and mild in-stent restenosis, dominant circumflex essentia lly free of significant disease, right coronary artery nondominant 90% stenosis as per Dr. Kwan gordon' catheterization. The patient continues to follow with Kwan Byers. Aortic stenosis, ga stric ulcers, duodenal ulcers, esophagitis, gastritis, duodenitis, hiatus hernia. PLAN: The patient is getting verapamil 40 mg t.i.d., metronidazole 500 mg IV q. 8 hours, Lipitor 10 mg daily, Protonix 40 mg q. 12 hours, Rocephin 1 gram IV daily, atenolol 37.5 mg p.o. daily. We will continue present therapy and patient will continue to follow with Dr. Kwan Byers as before. Soraya Ibarra MD cc: [id number] TT: 09/22/2016 12:24:17 Confirmation # [id number] Dictation # [id number]
[2016-09-22 14:01] VITALS: BP 110/66; PULSE 88
== END 2016-09-22 16:05 | disposition home or self-care (01) | DRG 544 ==
LOC: ED 15:09 → ERH 17:24 → 2RSO 23:04 → 3RNO 09-20 15:33
PROVIDERS: ADMIT Internal Medicine; ATTEND Internal Medicine
PROC: 0DB68ZX Excision of Stomach, Via Natural or Artificial Opening Endoscopic, Diagnostic (ICD-10-PCS; principal; 2016-09-20 11:00)
DX: I48.0 Paroxysmal atrial fibrillation (principal); B37.81 Candidal esophagitis; E46 Unspecified protein-calorie malnutrition; K26.9 Duodenal ulcer, unspecified as acute or chronic, without hemorrhage or perforation; I27.2 Other secondary pulmonary hypertension; I11.0 Hypertensive heart disease with heart failure; I50.9 Heart failure, unspecified; J44.9 Chronic obstructive pulmonary disease, unspecified; F03.90 Unspecified dementia, unspecified severity, without behavioral disturbance, psychotic disturbance, mood disturbance, and anxiety; K25.9 Gastric ulcer, unspecified as acute or chronic, without hemorrhage or perforation; K57.30 Diverticulosis of large intestine without perforation or abscess without bleeding; K44.9 Diaphragmatic hernia without obstruction or gangrene; K29.70 Gastritis, unspecified, without bleeding; K29.80 Duodenitis without bleeding; I08.0 Rheumatic disorders of both mitral and aortic valves; E78.5 Hyperlipidemia, unspecified; I48.2 Chronic atrial fibrillation; E11.9 Type 2 diabetes mellitus without complications; D64.9 Anemia, unspecified; I25.10 Atherosclerotic heart disease of native coronary artery without angina pectoris; K31.89 Other diseases of stomach and duodenum; Z79.84 Long term (current) use of oral hypoglycemic drugs; Z79.01 Long term (current) use of anticoagulants; Z68.23 Body mass index [BMI] 23.0-23.9, adult; Z95.5 Presence of coronary angioplasty implant and graft